=== PATIENT | female | born 1935 | race Caucasian/White ===

== ENCOUNTER 2020-05-05 19:49 | Inpatient (IN) | payer BC ==
[~2020-05-05] VITALS: Ht 165.1 cm; Wt 79.4 kg
[2020-05-05 20:15] VITALS: BP 145/64
--- NOTE | 2020-05-05 21:10 | Diagnostic Imaging Report ---
EXAM: XR Chest, 1 View CLINICAL HISTORY: SOB TECHNIQUE: Frontal view of the chest. COMPARISON: No relevant prior studies available. FINDINGS: The cardiac and mediastinal silhouettes are unremarkable. Minor scattered areas of atelectasis in both lung bases. Negative for pneumothorax or pleural fluid collections.
--- NOTE | 2020-05-05 21:20 | Emergency Room Report ---
History of Present Illness General Chief Complaint: Diarrhea Present Illness HPI Disclaimer: Please note that this report is being documented using [employer] technology. This can lead to erroneous entry secondary to incorrect interpretation by the dictating instrument. HPI: 84-year-old female history of hypertension, hyperlipidemia, dementia presented from [facility] secondary to positive coronavirus testing. Apparently at their facility they cannot take care of patients with COVID-19. T patient is mildly agitated at baseline and on arrival. She does not describe any complaints. Apparently she had 1 episode of diarrhea at her [facility] facility prior to arrival. Allergies: Coded Allergies: No Known Allergies (Unverified , 05/05/20) COVID-19 Screening Contact w/high risk pt: No Experienced COVID-19 symptoms?: Yes COVID-19 Testing performed CHIEF EXECUTIVE: Yes COVID-19 Screening: Positive COVID-19 COVID-19 Testing Source: POS Patient History Reviewed Nursing Documentation: PMH: Agreed; PSxH: Agreed Review of Systems All Other Systems: limited - History limited due to patient's baseline dementia Physical Exam Vital Signs Date Time Temp Pulse Resp B/P (MAP) Pulse Ox O2 Delivery O2 Flow Rate FiO2 05/05/20 19:36 98.2 88 19 98 Room Air Sp02 EP Interpretation: reviewed, normal General Appearance: well appearing, other - Patient mildly agitated Head: normocephalic, atraumatic Eyes: bilateral eye PERRL, bilateral eye EOMI ENT: hearing grossly normal, moist mucus membranes Neck: full range of motion, supple Respiratory: lungs clear, normal breath sounds, no rhonchi, no respiratory distress, no retraction, no wheezing Cardiovascular #1: normal peripheral pulses, regular rate, rhythm, no murmur Gastrointestinal: non tender, soft, non-distended, no guarding Neurologic: alert, oriented x3, no focal defects Skin: normal color, warm/dry Medical Decision Making Diagnostic Impression: Primary Impression: COVID-19 ER Course MDM: Differential diagnosis included COVID-19, pneumonia, dehydration, dementia to name a few Clinical course-patient tested positive for COVID-19 as an outpatient. Unfortunately with a positive test she cannot stay at her [facility] facility. In the ER basic laboratory studies were sent. Chest x-ray did not demonstrate any obvious pneumonia. Patient's vital signs were stable. Patient will require admission the hospital for further observation. Labs - Laboratory Tests Test 05/05/20 20:15 White Blood Count 10.0 K/UL (4.8-10.8) Red Blood Count 4.23 M/UL (4.20-5.40) Hemoglobin 13.9 G/DL (12.0-16.0) Hematocrit 44.0 % (37.0-47.0) Mean Corpuscular Volume 104 FL (80-99) H Mean Corpuscular Hemoglobin 33.0 PG (27.0-31.0) H Mean Corpuscular Hemoglobin Concent 31.7 G/DL (32.0-36.0) L Red Cell Distribution Width 13.3 % (11.6-14.8) Platelet Count 137 K/UL (150-450) L Mean Platelet Volume 9.4 FL (6.5-10.1) Neutrophils (%) (Auto) 58.4 % (45.0-75.0) Lymphocytes (%) (Auto) 31.2 % (20.0-45.0) Monocytes (%) (Auto) 8.2 % (1.0-10.0) Eosinophils (%) (Auto) 1.7 % (0.0-3.0) Basophils (%) (Auto) 0.6 % (0.0-2.0) Sodium Level 139 MMOL/L (136-145) Potassium Level 4.6 MMOL/L (3.5-5.1) Chloride Level 103 MMOL/L (98-107) Carbon Dioxide Level 30 MMOL/L (21-32) Anion Gap 6 mmol/L (5-15) Blood Urea Nitrogen 31 mg/dL (7-18) H Creatinine 1.2 MG/DL (0.55-1.30) Estimated Glomerular Filtration Rate 42.8 mL/min (>60) Glucose Level 107 MG/DL (74-106) H Calcium Level 9.6 MG/DL (8.5-10.1) Total Bilirubin 0.1 MG/DL (0.2-1.0) L Aspartate Amino Transferase (AST) 21 U/L (15-37) Alanine Aminotransferase (ALT) 19 U/L (12-78) Alkaline Phosphatase 44 U/L (46-116) L Total Protein 8.2 G/DL (6.4-8.2) Albumin 3.8 G/DL (3.4-5.0) Globulin 4.4 g/dL Albumin/Globulin Ratio 0.9 (1.0-2.7) L Microbiology Date/Time Source Procedure Growth Status 05/05/20 20:15 Nasopharynx SARS-CoV-2 RdRp Gene Assay - Final Complete On reevaluation: Patient remained in no acute distress but mildly agitated requiring Ativan Plan-admitssion to medical floor. Patient accepted by Dr. Aj EKG Diagnostic Results Rate: normal Rhythm: NSR ST Segments: no acute changes Other Impression Left axis deviation Chest X-Ray Diagnostic Results Chest X-Ray Diagnostic Results : Chest X-Ray Ordered: Yes # of Views/Limited/Complete: 1 View Indication: Shortness of Breath EP Interpretation: Yes Interpretation: no consolidation, no effusion, no pneumothorax Impression: No acute disease Electronically Signed by: Robert Smith MD Last Vital Signs Date Time Temp Pulse Resp B/P (MAP) Pulse Ox O2 Delivery O2 Flow Rate FiO2 05/05/20 19:36 98.2 88 19 98 Room Air Disposition: ADMITTED INPATIENT Condition: Serious Robert Smith M.D. May 05, 2020 21:20
[2020-05-05 21:27] LABS: BASOPHILS % (AUTO) 0.6 % (0.0-2.0); EOSINOPHILS % (AUTO) 1.7 % (0.0-3.0); HEMOGLOBIN 13.9 G/DL (12.0-16.0); LYMPHOCYTES % (AUTO) 31.2 % (20.0-45.0); MEAN CORPUSCULAR VOLUME 104 FL (80-99); MONOCYTES % (AUTO) 8.2 % (1.0-10.0); NEUTROPHILS % (AUTO) 58.4 % (45.0-75.0); PLATELET COUNT 137 K/UL (150-450); RED BLOOD COUNT 4.23 M/UL (4.20-5.40); RED CELL DISTRIBUTION WIDTH 13.3 % (11.6-14.8)
[2020-05-05 21:33] LABS: CALCIUM 9.6 MG/DL (8.5-10.1); CREATININE 1.2 MG/DL (0.55-1.30); POTASSIUM 4.6 MMOL/L (3.5-5.1)
[2020-05-05] MEDS ORDERED: LORazepam Inj 2mg/ml 1ml ONE (21:44)
[2020-05-05 21:45] LABS: ALBUMIN 3.8 G/DL (3.4-5.0); ALBUMIN/GLOBULIN RATIO 0.9 (1.0-2.7); BILIRUBIN,TOTAL 0.1 MG/DL (0.2-1.0)
[2020-05-05] MEDS ORDERED: DEPAKOTE250 MG PO (21:55)
[2020-05-05] MEDS ORDERED: LOSARTAN POTASS25 MG ORAL (21:55)
[2020-05-05] MEDS ORDERED: LISINOPRIL40 MG ORAL (21:55)
[2020-05-05] MEDS ORDERED: LORazepam Inj 2mg/ml 1ml IV ONE (22:00)
[2020-05-05 23:00] VITALS: BP 139/81
[2020-05-05 23:12] LABS: APPEARANCE,URINE CLOUDY; BILIRUBIN, URINE NEGATIVE (NEGATIVE); COLOR,URINE PALE YELLOW; GLUCOSE, URINE (UA) NEGATIVE (NEGATIVE); KETONES,URINE NEGATIVE (NEGATIVE); LEUKOCYTE ESTERASE ,URINE 3+ (NEGATIVE); NITRITE,URINE POSITIVE (NEGATIVE); PH,URINE 5 (4.5-8.0); PROTEIN,URINE 2+ (NEGATIVE); UROBILINOGEN,URINE NORMAL MG/DL (0.0-1.0)
[2020-05-06] VITALS (7 sets, daily range): BP systolic 120–153; BP diastolic 56–81
[2020-05-06 07:43] LABS: BASOPHILS % (AUTO) 0.3 % (0.0-2.0); EOSINOPHILS % (AUTO) 0.8 % (0.0-3.0); HEMATOCRIT 42.7 % (37.0-47.0); HEMOGLOBIN 13.5 G/DL (12.0-16.0); LYMPHOCYTES % (AUTO) 21.8 % (20.0-45.0); MEAN CORPUSCULAR VOLUME 103 FL (80-99); MONOCYTES % (AUTO) 6.7 % (1.0-10.0); NEUTROPHILS % (AUTO) 70.4 % (45.0-75.0); PLATELET COUNT 238 K/UL (150-450); RED BLOOD COUNT 4.16 M/UL (4.20-5.40); RED CELL DISTRIBUTION WIDTH 13.2 % (11.6-14.8); WHITE BLOOD COUNT 10.3 K/UL (4.8-10.8)
[2020-05-06 08:28] LABS: ANION GAP 8 mmol/L (5-15); BLOOD UREA NITROGEN 24 mg/dL (7-18); CALCIUM 9.3 MG/DL (8.5-10.1); CARBON DIOXIDE 29 MMOL/L (21-32); CHLORIDE 104 MMOL/L (98-107); CREATININE 1.1 MG/DL (0.55-1.30); POTASSIUM 4.1 MMOL/L (3.5-5.1); SODIUM 141 MMOL/L (136-145)
[2020-05-06] MEDS ORDERED: Losartan 25mg tab ORAL SCH (09:00)
[2020-05-06] MEDS: Lisinopril 20mg tab ORAL SCH (09:26)
[2020-05-06] MEDS: Depakote 125mg Sprinkles ORAL SCH (09:26)
[2020-05-06] MEDS: Heparin 5000 units/ml inj SUBQ SCH ×2 (09:27→20:17)
--- NOTE | 2020-05-06 10:47 | History and Physical ---
Liseth Miranda HEAD [employer]QU[employer] WAITER/WAITRESS 05/06/20 1047: History of Present Illness General Date patient seen: May 06, 2020 Time patient seen: 08:30 Reason for Hospitalization: COVID 19 infection Present Illness HPI 84 years old female with past medical history of hypertension, hyperlipidemia, dementia, resident of assisted living, presented secondary to positive coronavirus testing. At the facility they were unable to take care of patient with Covid. Upon evaluation patient was not able to describe any complaints. She had one episode of diarrhea at the facility. Upon evaluation she was afebrile pulse oximetry was stable on room air her vital signs were stable. Rapid COVID-19 in the emergency room occult was positive. Chest x-ray revealed minor area of atelectasis in both lung bases no evidence of pneumonia no pleural fluid collection. Laboratory work-up revealed no leukocytosis stable hemoglobin hematocrit count 137 yesterday but this morning 228. Stable electrolytes. BUN 31, creatinine 1.2. Albumin 3.8. D-dimer 2.3. Urinalysis revealed +2 protein plus for blood positive for nitrate leukocyte esterase pyuria and many bacteria. Patient subsequently admitted to medical surgical floor for further management. Allergies: Coded Allergies: No Known Allergies (Unverified , 05/05/20) COVID-19 Screening Contact w/high risk pt: No Experienced COVID-19 symptoms?: Yes Coronavirus symptoms experienc: Diarrhea Medication History Scheduled Divalproex Sodium* (Depakote*), 125 MG PO DAILY, (Reported) Lisinopril* (Lisinopril*), 40 MG ORAL DAILY, (Reported) Losartan Potassium* (Losartan Potassium*), 20 MG ORAL DAILY, (Reported) Patient History Healthcare decision maker Resuscitation status DNR/DNI Advanced Directive on File Review of Systems ROS Narrative unable to provide given dementia Physical Exam General Appearance: no apparent distress, other - awake, confused, slightly agitated Lines, tubes and drains: peripheral HEENT: normocephalic, atraumatic, anicteric, mucous membranes moist Neck: non-tender, supple Respiratory/Chest: chest wall non-tender, lungs clear, no respiratory distress, no accessory muscle use Cardiovascular/Chest: normal rate Abdomen: normal bowel sounds, non tender, soft Genitourinary/Rectal: other - no CVAT Extremities: no calf tenderness, normal capillary refill, no edema Neurologic: alert - confused , other - no gross focal Musculoskeletal: atrophy Last 24 Hour Vital Signs Date Time Temp Pulse Resp B/P (MAP) Pulse Ox O2 Delivery O2 Flow Rate FiO2 05/06/20 09:26 129/61 05/06/20 08:00 98.2 80 19 129/61 (83) 98 05/06/20 04:00 98.2 84 18 136/63 (87) 98 05/06/20 00:48 Room Air 05/06/20 00:05 98.2 88 20 151/81 (104) 98 05/05/20 23:45 98.2 99 17 139/81 99 Room Air 05/05/20 23:00 98.2 99 17 139/81 99 Room Air 05/05/20 22:00 88 19 145/78 98 05/05/20 20:15 98.2 88 19 145/64 98 Room Air 05/05/20 19:36 98.2 88 19 98 Room Air Laboratory Tests Test 05/05/20 20:15 05/05/20 21:30 05/06/20 05:15 White Blood Count 10.0 K/UL (4.8-10.8) 10.3 K/UL (4.8-10.8) Red Blood Count 4.23 M/UL (4.20-5.40) 4.16 M/UL (4.20-5.40) L Hemoglobin 13.9 G/DL (12.0-16.0) 13.5 G/DL (12.0-16.0) Hematocrit 44.0 % (37.0-47.0) 42.7 % (37.0-47.0) Mean Corpuscular Volume 104 FL (80-99) H 103 FL (80-99) H Mean Corpuscular Hemoglobin 33.0 PG (27.0-31.0) H 32.5 PG (27.0-31.0) H Mean Corpuscular Hemoglobin Concent 31.7 G/DL (32.0-36.0) L 31.7 G/DL (32.0-36.0) L Red Cell Distribution Width 13.3 % (11.6-14.8) 13.2 % (11.6-14.8) Platelet Count 137 K/UL (150-450) L 238 K/UL (150-450) # Mean Platelet Volume 9.4 FL (6.5-10.1) 7.2 FL (6.5-10.1) Neutrophils (%) (Auto) 58.4 % (45.0-75.0) 70.4 % (45.0-75.0) Lymphocytes (%) (Auto) 31.2 % (20.0-45.0) 21.8 % (20.0-45.0) Monocytes (%) (Auto) 8.2 % (1.0-10.0) 6.7 % (1.0-10.0) Eosinophils (%) (Auto) 1.7 % (0.0-3.0) 0.8 % (0.0-3.0) Basophils (%) (Auto) 0.6 % (0.0-2.0) 0.3 % (0.0-2.0) Sodium Level 139 MMOL/L (136-145) 141 MMOL/L (136-145) Potassium Level 4.6 MMOL/L (3.5-5.1) 4.1 MMOL/L (3.5-5.1) Chloride Level 103 MMOL/L (98-107) 104 MMOL/L (98-107) Carbon Dioxide Level 30 MMOL/L (21-32) 29 MMOL/L (21-32) Anion Gap 6 mmol/L (5-15) 8 mmol/L (5-15) Blood Urea Nitrogen 31 mg/dL (7-18) H 24 mg/dL (7-18) H Creatinine 1.2 MG/DL (0.55-1.30) 1.1 MG/DL (0.55-1.30) Estimat Glomerular Filtration Rate 42.8 mL/min (>60) 47.3 mL/min (>60) Glucose Level 107 MG/DL (74-106) H 98 MG/DL (74-106) Calcium Level 9.6 MG/DL (8.5-10.1) 9.3 MG/DL (8.5-10.1) Total Bilirubin 0.1 MG/DL (0.2-1.0) L Aspartate Amino Transf (AST/SGOT) 21 U/L (15-37) Alanine Aminotransferase (ALT/SGPT) 19 U/L (12-78) Alkaline Phosphatase 44 U/L (46-116) L Total Protein 8.2 G/DL (6.4-8.2) Albumin 3.8 G/DL (3.4-5.0) Globulin 4.4 g/dL Albumin/Globulin Ratio 0.9 (1.0-2.7) L Urine Color Pale yellow Urine Appearance Cloudy Urine pH 5 (4.5-8.0) Urine Specific [place] 1.020 (1.005-1.035) Urine Protein 2+ (NEGATIVE) H Urine Glucose (UA) Negative (NEGATIVE) Urine Ketones Negative (NEGATIVE) Urine Blood 4+ (NEGATIVE) H Urine Nitrite Positive (NEGATIVE) H Urine Bilirubin Negative (NEGATIVE) Urine Urobilinogen Normal MG/DL (0.0-1.0) Urine Leukocyte Esterase 3+ (NEGATIVE) H Urine RBC 0-2 /HPF (0 - 2) Urine WBC Tntc /HPF (0 - 2) H Urine Squamous Epithelial Cells Occasional /LPF Urine Bacteria Many /HPF (NONE) H Erythrocyte Sedimentation Rate 26 MM/HR (0-30) D-Dimer 2.30 mg/L FEU (0.00-0.49) H C-Reactive Protein, Quantitative < 0.4 mg/dL (0.00-0.90) Interleukin 6 (IL-6) Pending Microbiology Date/Time Source Procedure Growth Status 05/05/20 20:15 Nasopharynx SARS-CoV-2 RdRp Gene Assay - Final Complete Height (Feet): 5 Height (Inches): 5.00 Weight (Pounds): 175 Medications Current Medications Medications (Trade) Dose Ordered Sig/Trina Route PRN Reason Start Time Stop Time Status Last Admin Dose Admin Acetaminophen (Tylenol) 650 mg Q4H PRN ORAL Temp >100.5 05/06/20 00:15 06/05/20 00:14 Diphenhydramine HCl (Benadryl) 25 mg Q6H PRN ORAL Itching 05/06/20 00:15 06/05/20 00:14 Divalproex Sodium (Depakote Sprinkles) 125 mg DAILY ORAL 05/06/20 09:00 06/05/20 08:59 05/06/20 09:26 Heparin Sodium (Porcine) (Heparin 5000 units/ml) 5,000 units EVERY 12 HOURS SUBQ 05/06/20 09:00 06/20/20 08:59 05/06/20 09:27 Lisinopril (PriniviL) 40 mg DAILY ORAL 05/06/20 09:00 06/05/20 08:59 05/06/20 09:26 Ondansetron HCl (Zofran) 4 mg Q6H PRN IVP Nausea & Vomiting 05/06/20 00:15 06/05/20 00:14 Assessment/Plan Assessment/Plan: ASSESSMENT COVID 19 infection Probable UTI Hypertension Hyperlipidemia Dementia Mild dehydration Thrombocytopenia - already resolved PLAN OF CARE MS floor isolation closely monitor resp status, pulse oximetry remains stable on RA; CXR no acute CP pathology will hold off on steroids and abx for PNA, Remdesivivr not indicated in this case CRP NGT, D dimer 2.3, check LDH and ferritin IL6 pending follow up with CXR Albuterol via MDI prn DVT prophylaxis Venous Duplex BLE UA c/w with probable UTI start empiric Ceftriaxone fup with UCX start gentle IV hydration monitor volumes, renal parameters, lytes BP management with ANJALI DNR/DNI status case discussed and evaluated by supervising physician Pradeep Ramos MD 05/06/20 1554: History of Present Illness General Reason for Hospitalization: COVID 19 infection Present Illness Allergies: Coded Allergies: No Known Allergies (Unverified , 05/05/20) Medication History Scheduled Divalproex Sodium* (Depakote*), 125 MG PO DAILY, (Reported) Lisinopril* (Lisinopril*), 40 MG ORAL DAILY, (Reported) Losartan Potassium* (Losartan Potassium*), 20 MG ORAL DAILY, (Reported) Liseth Miranda NP May 06, 2020 10:47 Pradeep Ramos MD May 06, 2020 15:54
[2020-05-06] MEDS: cefTRIAXone 1 GM in D5W 55 ML IVPB SCH (11:23)
[2020-05-06] MEDS: D5 1/2NS 1,000 ML IV SCH (11:24)
[2020-05-06] MEDS ORDERED: Albuterol 90mcg Inhaler 8gm INH PRN (12:00)
--- NOTE | 2020-05-06 14:32 | Infectious Diseases Prog Note ---
Assessment/Plan Assessment/Plan Full consult dictated: A) 1) complicated UTI 2) covid-19 infection 3) allergies - nkda P) 1) ceftriaxone 2) covid-19 isolation - no indication for treatment 3) f/u on urine culture 4) thank you Subjective Allergies: Coded Allergies: No Known Allergies (Unverified , 05/05/20) Objective Last 24 Hour Vital Signs Date Time Temp Pulse Resp B/P (MAP) Pulse Ox O2 Delivery O2 Flow Rate FiO2 05/06/20 12:00 98.7 73 20 153/75 (101) 95 05/06/20 09:26 129/61 05/06/20 09:00 Room Air 05/06/20 08:00 98.2 80 19 129/61 (83) 98 05/06/20 04:00 98.2 84 18 136/63 (87) 98 05/06/20 00:48 Room Air 05/06/20 00:05 98.2 88 20 151/81 (104) 98 05/05/20 23:45 98.2 99 17 139/81 99 Room Air 05/05/20 23:00 98.2 99 17 139/81 99 Room Air 05/05/20 22:00 88 19 145/78 98 05/05/20 20:15 98.2 88 19 145/64 98 Room Air 05/05/20 19:36 98.2 88 19 98 Room Air Height (Feet): 5 Height (Inches): 5.00 Weight (Pounds): 175 Microbiology Date/Time Source Procedure Growth Status 05/05/20 20:15 Nasopharynx SARS-CoV-2 RdRp Gene Assay - Final Complete Laboratory Tests Test 05/05/20 20:15 05/05/20 21:30 05/06/20 05:15 White Blood Count 10.0 K/UL (4.8-10.8) 10.3 K/UL (4.8-10.8) Red Blood Count 4.23 M/UL (4.20-5.40) 4.16 M/UL (4.20-5.40) L Hemoglobin 13.9 G/DL (12.0-16.0) 13.5 G/DL (12.0-16.0) Hematocrit 44.0 % (37.0-47.0) 42.7 % (37.0-47.0) Mean Corpuscular Volume 104 FL (80-99) H 103 FL (80-99) H Mean Corpuscular Hemoglobin 33.0 PG (27.0-31.0) H 32.5 PG (27.0-31.0) H Mean Corpuscular Hemoglobin Concent 31.7 G/DL (32.0-36.0) L 31.7 G/DL (32.0-36.0) L Red Cell Distribution Width 13.3 % (11.6-14.8) 13.2 % (11.6-14.8) Platelet Count 137 K/UL (150-450) L 238 K/UL (150-450) # Mean Platelet Volume 9.4 FL (6.5-10.1) 7.2 FL (6.5-10.1) Neutrophils (%) (Auto) 58.4 % (45.0-75.0) 70.4 % (45.0-75.0) Lymphocytes (%) (Auto) 31.2 % (20.0-45.0) 21.8 % (20.0-45.0) Monocytes (%) (Auto) 8.2 % (1.0-10.0) 6.7 % (1.0-10.0) Eosinophils (%) (Auto) 1.7 % (0.0-3.0) 0.8 % (0.0-3.0) Basophils (%) (Auto) 0.6 % (0.0-2.0) 0.3 % (0.0-2.0) Sodium Level 139 MMOL/L (136-145) 141 MMOL/L (136-145) Potassium Level 4.6 MMOL/L (3.5-5.1) 4.1 MMOL/L (3.5-5.1) Chloride Level 103 MMOL/L (98-107) 104 MMOL/L (98-107) Carbon Dioxide Level 30 MMOL/L (21-32) 29 MMOL/L (21-32) Anion Gap 6 mmol/L (5-15) 8 mmol/L (5-15) Blood Urea Nitrogen 31 mg/dL (7-18) H 24 mg/dL (7-18) H Creatinine 1.2 MG/DL (0.55-1.30) 1.1 MG/DL (0.55-1.30) Estimat Glomerular Filtration Rate 42.8 mL/min (>60) 47.3 mL/min (>60) Glucose Level 107 MG/DL (74-106) H 98 MG/DL (74-106) Calcium Level 9.6 MG/DL (8.5-10.1) 9.3 MG/DL (8.5-10.1) Total Bilirubin 0.1 MG/DL (0.2-1.0) L Aspartate Amino Transf (AST/SGOT) 21 U/L (15-37) Alanine Aminotransferase (ALT/SGPT) 19 U/L (12-78) Alkaline Phosphatase 44 U/L (46-116) L Total Protein 8.2 G/DL (6.4-8.2) Albumin 3.8 G/DL (3.4-5.0) Globulin 4.4 g/dL Albumin/Globulin Ratio 0.9 (1.0-2.7) L Urine Color Pale yellow Urine Appearance Cloudy Urine pH 5 (4.5-8.0) Urine Specific [place] 1.020 (1.005-1.035) Urine Protein 2+ (NEGATIVE) H Urine Glucose (UA) Negative (NEGATIVE) Urine Ketones Negative (NEGATIVE) Urine Blood 4+ (NEGATIVE) H Urine Nitrite Positive (NEGATIVE) H Urine Bilirubin Negative (NEGATIVE) Urine Urobilinogen Normal MG/DL (0.0-1.0) Urine Leukocyte Esterase 3+ (NEGATIVE) H Urine RBC 0-2 /HPF (0 - 2) Urine WBC Tntc /HPF (0 - 2) H Urine Squamous Epithelial Cells Occasional /LPF Urine Bacteria Many /HPF (NONE) H Erythrocyte Sedimentation Rate 26 MM/HR (0-30) D-Dimer 2.30 mg/L FEU (0.00-0.49) H C-Reactive Protein, Quantitative < 0.4 mg/dL (0.00-0.90) Interleukin 6 (IL-6) Pending Current Medications Medications (Trade) Dose Ordered Sig/Trina Route PRN Reason Start Time Stop Time Status Last Admin Dose Admin Acetaminophen (Tylenol) 650 mg Q4H PRN ORAL Temp >100.5 05/06/20 00:15 06/05/20 00:14 Albuterol Sulfate (Proventil MDI) 2 puff Q4H PRN INH Shortness of Breath 05/06/20 12:00 08/04/20 11:59 Ceftriaxone Sodium 1 gm/ Dextrose 55 ml @ 110 mls/hr Q24H IVPB 05/06/20 10:45 05/13/20 10:44 05/06/20 11:23 Dextrose/Sodium Chloride 1,000 ml @ 50 mls/hr Q20H IV 05/06/20 10:45 06/05/20 10:44 05/06/20 11:24 Diphenhydramine HCl (Benadryl) 25 mg Q6H PRN ORAL Itching 05/06/20 00:15 06/05/20 00:14 Divalproex Sodium (Depakote Sprinkles) 125 mg DAILY ORAL 05/06/20 09:00 06/05/20 08:59 05/06/20 09:26 Heparin Sodium (Porcine) (Heparin 5000 units/ml) 5,000 units EVERY 12 HOURS SUBQ 05/06/20 09:00 06/20/20 08:59 05/06/20 09:27 Lisinopril (PriniviL) 40 mg DAILY ORAL 05/06/20 09:00 06/05/20 08:59 05/06/20 09:26 Ondansetron HCl (Zofran) 4 mg Q6H PRN IVP Nausea & Vomiting 05/06/20 00:15 06/05/20 00:14 Wale Schofield MD May 06, 2020 14:32
--- NOTE | 2020-05-06 19:26 | Consultation ---
History of Present Illness General Date patient seen: May 06, 2020 Reason for Hospitalization: Diarrhea Present Illness H[facility] 84[facility] currently admitted for care and management identified to have UTI on treatment with antibiotics Covid positive on MedSurg floor. On admission identified to have atypical lesion/skin around the sacral region. Surgery called to evaluate assist with care. Patient seen, patient evaluated chart reviewed. Per report patient has been having diarrhea recently. History of dementia alert but unable to cooperate with exam in detail Allergies: Coded Allergies: No Known Allergies (Unverified , 05/05/20) COVID-19 Screening Contact w/high risk pt: No Experienced COVID-19 symptoms?: Yes Coronavirus symptoms experienc: Diarrhea Medication History Scheduled Divalproex Sodium* (Depakote*), 125 MG PO DAILY, (Reported) Lisinopril* (Lisinopril*), 40 MG ORAL DAILY, (Reported) Losartan Potassium* (Losartan Potassium*), 20 MG ORAL DAILY, (Reported) Patient History Limited by: medical condition History Provided By: Medical Record, PMD Healthcare decision maker Resuscitation status Advanced Directive on File Past Medical/Surgical History Past Medical/Surgical History: (1) Incontinence associated dermatitis (2) COVID-19 Review of Systems Review of Symptoms General ROS: no weight loss or fever Psychological ROS: no depression or mood changes, no memory loss Ophthalmic ROS: no visual changes or eye irritation ENT ROS: no nasal congestion, hearing loss, dizziness Allergy and Immunology ROS: no allergic symptoms or urticaria Hematological and Lymphatic ROS: no swollen glands, unusual bleeding or bruising Endocrine ROS: no polyuria, polydipsia, weight changes, temperature intolerance Respiratory ROS: no cough, shortness of breath, or wheezing Cardiovascular ROS: no chest pain or dyspnea on exertion Gastrointestinal ROS: denies abdominal pain, bright red blood in stool. Musculoskeletal ROS: no myalgias or arthralgias Neurological ROS: no TIA or stroke symptoms Dermatological ROS: no new or changing skin lesions, rashes or pruritis limited Physical Exam Physical Exam General Appearance: well appearing, other - Patient mildly agitated Head: normocephalic, atraumatic Eyes: bilateral eye PERRL, bilateral eye EOMI ENT: hearing grossly normal, moist mucus membranes Neck: full range of motion, supple Respiratory: lungs clear, normal breath sounds, no rhonchi, no respiratory distress, no retraction, no wheezing Cardiovascular #1: normal peripheral pulses, regular rate, rhythm, no murmur Gastrointestinal: non tender, soft, non-distended, no guarding Neurologic: alert, oriented x3, no focal defects Skin: normal color, warm/dry. IAD sacral Last 24 Hour Vital Signs Date Time Temp Pulse Resp B/P (MAP) Pulse Ox O2 Delivery O2 Flow Rate FiO2 05/06/20 16:00 97.1 77 18 120/77 (91) 97 05/06/20 12:00 98.7 73 20 153/75 (101) 95 05/06/20 09:26 129/61 05/06/20 09:00 Room Air 05/06/20 08:00 98.2 80 19 129/61 (83) 98 05/06/20 04:00 98.2 84 18 136/63 (87) 98 05/06/20 00:48 Room Air 05/06/20 00:05 98.2 88 20 151/81 (104) 98 05/05/20 23:45 98.2 99 17 139/81 99 Room Air 05/05/20 23:00 98.2 99 17 139/81 99 Room Air 05/05/20 22:00 88 19 145/78 98 05/05/20 20:15 98.2 88 19 145/64 98 Room Air 05/05/20 19:36 98.2 88 19 98 Room Air Laboratory Tests Test 05/05/20 20:15 05/05/20 21:30 05/06/20 05:15 White Blood Count 10.0 K/UL (4.8-10.8) 10.3 K/UL (4.8-10.8) Red Blood Count 4.23 M/UL (4.20-5.40) 4.16 M/UL (4.20-5.40) L Hemoglobin 13.9 G/DL (12.0-16.0) 13.5 G/DL (12.0-16.0) Hematocrit 44.0 % (37.0-47.0) 42.7 % (37.0-47.0) Mean Corpuscular Volume 104 FL (80-99) H 103 FL (80-99) H Mean Corpuscular Hemoglobin 33.0 PG (27.0-31.0) H 32.5 PG (27.0-31.0) H Mean Corpuscular Hemoglobin Concent 31.7 G/DL (32.0-36.0) L 31.7 G/DL (32.0-36.0) L Red Cell Distribution Width 13.3 % (11.6-14.8) 13.2 % (11.6-14.8) Platelet Count 137 K/UL (150-450) L 238 K/UL (150-450) # Mean Platelet Volume 9.4 FL (6.5-10.1) 7.2 FL (6.5-10.1) Neutrophils (%) (Auto) 58.4 % (45.0-75.0) 70.4 % (45.0-75.0) Lymphocytes (%) (Auto) 31.2 % (20.0-45.0) 21.8 % (20.0-45.0) Monocytes (%) (Auto) 8.2 % (1.0-10.0) 6.7 % (1.0-10.0) Eosinophils (%) (Auto) 1.7 % (0.0-3.0) 0.8 % (0.0-3.0) Basophils (%) (Auto) 0.6 % (0.0-2.0) 0.3 % (0.0-2.0) Sodium Level 139 MMOL/L (136-145) 141 MMOL/L (136-145) Potassium Level 4.6 MMOL/L (3.5-5.1) 4.1 MMOL/L (3.5-5.1) Chloride Level 103 MMOL/L (98-107) 104 MMOL/L (98-107) Carbon Dioxide Level 30 MMOL/L (21-32) 29 MMOL/L (21-32) Anion Gap 6 mmol/L (5-15) 8 mmol/L (5-15) Blood Urea Nitrogen 31 mg/dL (7-18) H 24 mg/dL (7-18) H Creatinine 1.2 MG/DL (0.55-1.30) 1.1 MG/DL (0.55-1.30) Estimat Glomerular Filtration Rate 42.8 mL/min (>60) 47.3 mL/min (>60) Glucose Level 107 MG/DL (74-106) H 98 MG/DL (74-106) Calcium Level 9.6 MG/DL (8.5-10.1) 9.3 MG/DL (8.5-10.1) Total Bilirubin 0.1 MG/DL (0.2-1.0) L Aspartate Amino Transf (AST/SGOT) 21 U/L (15-37) Alanine Aminotransferase (ALT/SGPT) 19 U/L (12-78) Alkaline Phosphatase 44 U/L (46-116) L Total Protein 8.2 G/DL (6.4-8.2) Albumin 3.8 G/DL (3.4-5.0) Globulin 4.4 g/dL Albumin/Globulin Ratio 0.9 (1.0-2.7) L Urine Color Pale yellow Urine Appearance Cloudy Urine pH 5 (4.5-8.0) Urine Specific [place] 1.020 (1.005-1.035) Urine Protein 2+ (NEGATIVE) H Urine Glucose (UA) Negative (NEGATIVE) Urine Ketones Negative (NEGATIVE) Urine Blood 4+ (NEGATIVE) H Urine Nitrite Positive (NEGATIVE) H Urine Bilirubin Negative (NEGATIVE) Urine Urobilinogen Normal MG/DL (0.0-1.0) Urine Leukocyte Esterase 3+ (NEGATIVE) H Urine RBC 0-2 /HPF (0 - 2) Urine WBC Tntc /HPF (0 - 2) H Urine Squamous Epithelial Cells Occasional /LPF Urine Bacteria Many /HPF (NONE) H Erythrocyte Sedimentation Rate 26 MM/HR (0-30) D-Dimer 2.30 mg/L FEU (0.00-0.49) H C-Reactive Protein, Quantitative < 0.4 mg/dL (0.00-0.90) Interleukin 6 (IL-6) Pending Microbiology Date/Time Source Procedure Growth Status 05/05/20 20:15 Nasopharynx SARS-CoV-2 RdRp Gene Assay - Final Complete Height (Feet): 5 Height (Inches): 5.00 Weight (Pounds): 175 Medications Current Medications Medications (Trade) Dose Ordered Sig/Trina Route PRN Reason Start Time Stop Time Status Last Admin Dose Admin Acetaminophen (Tylenol) 650 mg Q4H PRN ORAL Temp >100.5 05/06/20 00:15 06/05/20 00:14 Albuterol Sulfate (Proventil MDI) 2 puff Q4H PRN INH Shortness of Breath 05/06/20 12:00 08/04/20 11:59 Ceftriaxone Sodium 1 gm/ Dextrose 55 ml @ 110 mls/hr Q24H IVPB 05/06/20 10:45 05/13/20 10:44 05/06/20 11:23 Dextrose/Sodium Chloride 1,000 ml @ 50 mls/hr Q20H IV 05/06/20 10:45 06/05/20 10:44 05/06/20 11:24 Diphenhydramine HCl (Benadryl) 25 mg Q6H PRN ORAL Itching 05/06/20 00:15 06/05/20 00:14 Divalproex Sodium (Depakote Sprinkles) 125 mg DAILY ORAL 05/06/20 09:00 06/05/20 08:59 05/06/20 09:26 Heparin Sodium (Porcine) (Heparin 5000 units/ml) 5,000 units EVERY 12 HOURS SUBQ 05/06/20 09:00 06/20/20 08:59 05/06/20 09:27 Lisinopril (PriniviL) 40 mg DAILY ORAL 05/06/20 09:00 06/05/20 08:59 05/06/20 09:26 Ondansetron HCl (Zofran) 4 mg Q6H PRN IVP Nausea & Vomiting 05/06/20 00:15 06/05/20 00:14 Assessment/Plan Problem List: (1) Incontinence associated dermatitis Assessment & Plan: Patient identified admission to have incontinence associated and tightness around the sacral region. There is skin breakdown in the sacral cleft as well as the bilateral buttock and the sacral periwound with mild maceration of the epidermis but no open lesions. Patient is recently having diarrhea and at high risk for further breakdown. BMI of 29 albumin of 3.8 as the patient does have fairly good nutritional status at this time. To ensure that patient does not have further breakdown or opening of the skin will monitor for incontinence/diarrhea and treat accordingly. In the meantime continue with nutritional optimization as well as turning patient every 2 hours offloading pressure with pillows. Wash wounds daily with normal saline apply OPTi foam dressing to the sacral area okay to change every 3 days with skin protectant unless there is incontinence at which time change accordingly. Thank you will follow with recommendations ICD Codes: L25.8 - Unspecified contact dermatitis due to other agents; R32 - Unspecified urinary incontinence SNOMED: [id number] (2) COVID-19 Assessment & Plan: COVID + ID input noted appreciated The cardiac and mediastinal silhouettes are unremarkable. Minor scattered areas of atelectasis in both lung bases. Negative for pneumothorax or pleural fluid collections. ICD Codes: U07.1 - COVID-19 SNOMED: [id number] Jeramy Rhodes May 06, 2020 19:26
--- NOTE | 2020-05-06 20:14 | Consultation ---
DATE OF CONSULTATION: 05/06/2020 INFECTIOUS DISEASE CONSULTATION CONSULTING PHYSICIAN: Wale Schofield MD ATTENDING PHYSICIAN: Pradeep Ramos MD REFERRING PHYSICIAN: Pradeep Ramos MD REASON FOR CONSULTATION: COVID-19 infection, UTI. CHIEF COMPLAINT: Patient's chief complaint coming to the hospital is COVID-19 infection, UTI, and looks like weakness. HISTORY OF PRESENT ILLNESS: This is an 84-year-old female who comes in to [facility]. Patient has a history of multiple medical problems. She has weakness and diarrhea. She has a complicated UTI with weakness. She also is positive for COVID-19 infection. COVID-19 test was positive at outside facility and also here at [facility] with rapid COVID testing being positive. Infectious Disease requested for antibiotic management in this patient with urinary tract infection, complicated UTI, and COVID-19 infection management. Patient currently is in COVID isolation. REVIEW OF SYSTEMS: CONSTITUTIONAL: Patient is responsive. She has generalized fatigue, weakness, but no focal weakness. She has no fever or chills. HEAD AND NECK: No head pain or neck pain. CARDIAC: No chest pain. GASTROINTESTINAL: She had diarrhea. Currently no diarrhea. No nausea, vomiting, abdominal pain. GENITOURINARY: No Christianson. She has some dysuria, frequency. PULMONARY: No cough or congestion. Saturations are stable. SKIN: No rash. EXTREMITIES: No pain. NEUROLOGIC: No seizures. No CVA tenderness. PAST MEDICAL HISTORY: Patient has a past medical history of hypertension, hyperlipidemia, dementia. She has a history of dehydration, thrombocytopenia. ALLERGIES: No known drug allergies. No antibiotic allergies. SOCIAL HISTORY: Negative for smoking, alcohol, or drug abuse. FAMILY HISTORY: Noncontributory. Negative for tuberculosis or cancer. MEDICATIONS: Upon reviewing the MAR, she is on following medications. She is on albuterol, Rocephin, heparin, lisinopril, abx , Zofran, diphenhydramine, acetaminophen, lorazepam. Outside medications noted and reconciliated. PHYSICAL EXAMINATION: VITAL SIGNS: Temperature 98.7, pulse rate 73, respiratory rate 20, blood pressure 153/75, saturation 95% on room air. GENERAL: Alert, responsive. No acute distress. HEAD AND NECK: Oral exam, no thrush. Eye exam, no icterus. Normocephalic. Neck is supple. No JVD. HEART: Regular. No gallop or murmur. No friction rub. ABDOMEN: Soft. Positive bowel sounds. Nontender. LUNGS: Clear bilaterally. No rhonchi or rales. SKIN: No rash. MUSCULOSKELETAL: No effusion. No contractures. Legs are without cellulitis. PERIPHERAL VASCULAR: No cyanosis or gangrene. GENITOURINARY: No Christianson. No CVA tenderness. LINE SITES: Without phlebitis. NEUROLOGIC: Alert, responsive. She is in COVID isolation. LABORATORY DATA: UA had positive nitrite, 3+ leukocyte esterase, too many to count white blood cells, many bacteria. Creatinine is 1.1. LFTs noted. White count 10.3, hgb-13.5_. Urine culture is pending. SARS COVID testing is positive by molecular testing. IMAGING STUDIES: Chest x-ray showed only atelectasis. There is no infiltrate. ASSESSMENT AND PLAN: 1. Complicated UTI with diarrhea and generalized weakness. Patient is on Rocephin currently. I would continue Rocephin for gram-negative coverage. Continue Rocephin for complicated UTI. Check urine culture. 2. COVID-19 infection. Continue isolation. There is no indication for remdesivir or dexamethasone at this time. Saturation is 95% on room air without any respiratory symptoms. 3. Patient has history of hypertension. 4. Dementia. 5. Blood pressure treatment per primary care team. 6. Dyslipidemia. 7. Thrombocytopenia. 8. Dehydration. 9. IV fluids. 10. Continue treatment per primary consultants. 11. No known drug allergies. 12. Social history is negative. 13. Family history is noncontributory. 14. MAR is noted. 15. Case was discussed with RN. Wale Schofield M.D. DR: BELL JOB#: [id number] CC: GRIS
[2020-05-07 04:07] VITALS: BP 133/65
[2020-05-07] MEDS: D5 1/2NS 1,000 ML IV SCH (06:45)
[2020-05-07 08:00] VITALS: BP 119/62
[2020-05-07] MEDS: Heparin 5000 units/ml inj SUBQ SCH ×3 (09:00→20:11)
[2020-05-07] MEDS: Lisinopril 20mg tab ORAL SCH (09:00)
[2020-05-07] MEDS: Depakote 125mg Sprinkles ORAL SCH (09:32)
[2020-05-07] MEDS: cefTRIAXone 1 GM in D5W 55 ML IVPB SCH (10:17)
--- NOTE | 2020-05-07 11:19 | Pulmonology Progress Note ---
Subjective Allergies: Coded Allergies: No Known Allergies (Unverified , 05/05/20) Subjective remains in isolation pulse ox stable on RA declined blood draw today , not eating food , took all meds Objective Last 24 Hour Vital Signs Date Time Temp Pulse Resp B/P (MAP) Pulse Ox O2 Delivery O2 Flow Rate FiO2 05/07/20 09:00 119/62 05/07/20 08:00 97.8 71 19 119/62 (81) 96 05/07/20 04:07 97.9 68 17 133/65 (87) 96 05/06/20 23:44 97.5 76 16 130/60 (83) 97 05/06/20 20:57 Room Air 05/06/20 20:00 97.4 72 17 136/56 (82) 97 05/06/20 16:00 97.1 77 18 120/77 (91) 97 05/06/20 12:00 98.7 73 20 153/75 (101) 95 Intake and Output 05/06/20 05/07/20 19:00 07:00 Intake Total 50 ml 760 ml Balance 50 ml 760 ml Intake Oral 360 ml IV Total 50 ml 400 ml # Voids 3 2 Objective General Appearance: no apparent distress, awake, confused, Lines, tubes and drains: peripheral HEENT: normocephalic, atraumatic, anicteric, mucous membranes moist Neck: non-tender, supple Respiratory/Chest: chest wall non-tender, lungs clear, no respiratory distress, no accessory muscle use Cardiovascular/Chest: normal rate Abdomen: normal bowel sounds, non tender, soft Genitourinary/Rectal: no CVAT Extremities: no calf tenderness, normal capillary refill, no edema Neurologic: alert but confused , no gross focal Musculoskeletal: atrophy Microbiology Date/Time Source Procedure Growth Status 05/05/20 20:15 Nasopharynx SARS-CoV-2 RdRp Gene Assay - Final Complete Current Medications Medications (Trade) Dose Ordered Sig/Trina Route PRN Reason Start Time Stop Time Status Last Admin Dose Admin Acetaminophen (Tylenol) 650 mg Q4H PRN ORAL Temp >100.5 05/06/20 00:15 06/05/20 00:14 Albuterol Sulfate (Proventil MDI) 2 puff Q4H PRN INH Shortness of Breath 05/06/20 12:00 08/04/20 11:59 Ceftriaxone Sodium 1 gm/ Dextrose 55 ml @ 110 mls/hr Q24H IVPB 05/06/20 10:45 05/13/20 10:44 05/06/20 11:23 Dextrose/Sodium Chloride 1,000 ml @ 50 mls/hr Q20H IV 05/06/20 10:45 06/05/20 10:44 05/06/20 11:24 Diphenhydramine HCl (Benadryl) 25 mg Q6H PRN ORAL Itching 05/06/20 00:15 06/05/20 00:14 Divalproex Sodium (Depakote Sprinkles) 125 mg DAILY ORAL 05/06/20 09:00 06/05/20 08:59 05/07/20 09:32 Heparin Sodium (Porcine) (Heparin 5000 units/ml) 5,000 units EVERY 12 HOURS SUBQ 05/06/20 09:00 06/20/20 08:59 05/06/20 20:17 Lisinopril (PriniviL) 40 mg DAILY ORAL 05/06/20 09:00 06/05/20 08:59 05/06/20 09:26 Ondansetron HCl (Zofran) 4 mg Q6H PRN IVP Nausea & Vomiting 05/06/20 00:15 06/05/20 00:14 Assessment/Plan Assessment/Plan ASSESSMENT COVID 19 infection Complicated UTI with diarrhea and generalized weakness Hypertension Hyperlipidemia Dementia Mild dehydration Thrombocytopenia - already resolved PLAN OF CARE MS floor isolation closely monitor resp status, pulse oximetry remains stable on RA; CXR no acute CP pathology hold off on steroids and abx for PNA, Remdesivivr not indicated in this case ID follows CRP NGT, D dimer 2.3, check LDH and ferritin in am -declined labs , will try to repeat in am IL6 pending follow up with CXR in few days Albuterol via MDI prn DVT prophylaxis Venous Duplex BLE UA c/w with probable UTI started on empiric Ceftriaxone fup with UCX gentle IV hydration monitor volumes, renal parameters, lytes BP management with ANJALI BSSE aspiration precautions DNR/DNI status case discussed and evaluated by supervising physician Liseth Miranda NP May 07, 2020 11:19
[2020-05-07] MEDS ORDERED: Varibar Honey 250ml MC PRN (11:45)
[2020-05-07] MEDS ORDERED: Varibar Nectar 240ml MC PRN (11:45)
[2020-05-07] MEDS ORDERED: Varibar Thin Liquid powder 148gm MC PRN (11:45)
[2020-05-07] MEDS ORDERED: Varibar Pudding 230ml MC PRN (11:45)
[2020-05-07 12:00] VITALS: BP 121/60
[2020-05-07] MEDS ORDERED: QUETIAPINE FUMA25 MG ORAL (12:04)
[2020-05-07] MEDS ORDERED: DIVALPROEX SOD125 MG PO (12:04)
[2020-05-07] MEDS ORDERED: LOVASTATIN20 MG ORAL (12:04)
--- NOTE | 2020-05-07 13:09 | Infectious Diseases Prog Note ---
Assessment/Plan Assessment/Plan A) 1) complicated UTI 2) covid-19 infection 3) allergies - nkda P) 1) ceftriaxone - changed to ceftin, patient pulled out iv 2) covid-19 isolation - no indication for treatment 3) f/u on urine culture 4) will f/u Subjective Constitutional: Denies: fever HEENT: Denies: congestion Respiratory: Denies: shortness of breath Cardiovascular: Denies: chest pain Gastrointestinal/Abdominal: Denies: nausea, vomiting Neurologic: Denies: headache Psychiatric: Denies: depression Skin: Denies: rash Allergies: Coded Allergies: No Known Allergies (Unverified , 05/05/20) Objective Last 24 Hour Vital Signs Date Time Temp Pulse Resp B/P (MAP) Pulse Ox O2 Delivery O2 Flow Rate FiO2 05/07/20 12:00 98.6 79 18 121/60 (80) 97 05/07/20 09:00 Room Air 05/07/20 09:00 119/62 05/07/20 08:00 97.8 71 19 119/62 (81) 96 05/07/20 04:07 97.9 68 17 133/65 (87) 96 05/06/20 23:44 97.5 76 16 130/60 (83) 97 05/06/20 20:57 Room Air 05/06/20 20:00 97.4 72 17 136/56 (82) 97 05/06/20 16:00 97.1 77 18 120/77 (91) 97 Height (Feet): 5 Height (Inches): 5.00 Weight (Pounds): 175 General Appearance: no acute distress HEENT: normocephalic, atraumatic, anicteric, mucous membranes moist Respiratory/Chest: lungs clear, normal breath sounds, no respiratory distress Cardiovascular: normal rate, regular rhythm Abdomen: normal bowel sounds, soft, non tender Microbiology Date/Time Source Procedure Growth Status 05/05/20 20:15 Nasopharynx SARS-CoV-2 RdRp Gene Assay - Final Complete Current Medications Medications (Trade) Dose Ordered Sig/Trina Route PRN Reason Start Time Stop Time Status Last Admin Dose Admin Acetaminophen (Tylenol) 650 mg Q4H PRN ORAL Temp >100.5 05/06/20 00:15 06/05/20 00:14 Albuterol Sulfate (Proventil MDI) 2 puff Q4H PRN INH Shortness of Breath 05/06/20 12:00 08/04/20 11:59 Barium Sulfate (Varibar Honey) 250 ml NOW PRN RAD 05/07/20 11:45 05/10/20 11:31 Barium Sulfate (Varibar [place]) 240 ml NOW PRN MC RAD 05/07/20 11:45 05/10/20 11:31 Barium Sulfate (Varibar Pudding) 230 ml NOW PRN RAD 05/07/20 11:45 05/10/20 11:31 Barium Sulfate (Varibar Thin Liquid powder) 148 gm NOW PRN RAD 05/07/20 11:45 05/10/20 11:31 Ceftriaxone Sodium 1 gm/ Dextrose 55 ml @ 110 mls/hr Q24H IVPB 05/06/20 10:45 05/13/20 10:44 05/06/20 11:23 Cefuroxime Axetil (Ceftin) 250 mg EVERY 12 HOURS ORAL 05/07/20 13:30 05/14/20 13:29 Dextrose/Sodium Chloride 1,000 ml @ 50 mls/hr Q20H IV 05/06/20 10:45 06/05/20 10:44 05/06/20 11:24 Diphenhydramine HCl (Benadryl) 25 mg Q6H PRN ORAL Itching 05/06/20 00:15 06/05/20 00:14 Divalproex Sodium (Depakote Sprinkles) 125 mg DAILY ORAL 05/06/20 09:00 06/05/20 08:59 05/07/20 09:32 Heparin Sodium (Porcine) (Heparin 5000 units/ml) 5,000 units EVERY 12 HOURS SUBQ 05/06/20 09:00 06/20/20 08:59 05/06/20 20:17 Lisinopril (PriniviL) 40 mg DAILY ORAL 05/06/20 09:00 06/05/20 08:59 05/06/20 09:26 Ondansetron HCl (Zofran) 4 mg Q6H PRN IVP Nausea & Vomiting 05/06/20 00:15 06/05/20 00:14 Wale Schofield MD May 07, 2020 13:08
[2020-05-07 16:00] VITALS: BP 127/72
--- NOTE | 2020-05-07 17:19 | Surgery Progress Note ---
Surgery Progress Note Subjective Additional Comments not always cooperative with care plan non compliant at times no acute events respiratory okay Objective Last 24 Hour Vital Signs Date Time Temp Pulse Resp B/P (MAP) Pulse Ox O2 Delivery O2 Flow Rate FiO2 05/07/20 16:00 97.9 81 19 127/72 (90) 98 05/07/20 12:00 98.6 79 18 121/60 (80) 97 05/07/20 09:00 Room Air 05/07/20 09:00 119/62 05/07/20 08:00 97.8 71 19 119/62 (81) 96 05/07/20 04:07 97.9 68 17 133/65 (87) 96 05/06/20 23:44 97.5 76 16 130/60 (83) 97 05/06/20 20:57 Room Air 05/06/20 20:00 97.4 72 17 136/56 (82) 97 I&O Intake and Output 05/06/20 05/07/20 19:00 07:00 Intake Total 50 ml 760 ml Balance 50 ml 760 ml Intake Oral 360 ml IV Total 50 ml 400 ml # Voids 3 2 Cardiovascular: RSR Respiratory: decreased breath sounds Abdomen: non-tender, present bowel sounds Extremities: no edema, no tenderness, no cyanosis Plan Problems: (1) Incontinence associated dermatitis Assessment & Plan: Patient identified admission to have incontinence associated and tightness around the sacral region. There is skin breakdown in the sacral cleft as well as the bilateral buttock and the sacral periwound with mild maceration of the epidermis but no open lesions. Patient is recently having diarrhea and at high risk for further breakdown. BMI of 29 albumin of 3.8 as the patient does have fairly good nutritional status at this time. To ensure that patient does not have further breakdown or opening of the skin will monitor for incontinence/diarrhea and treat accordingly. In the meantime continue with nutritional optimization as well as turning patient every 2 hours offloading pressure with pillows. Wash wounds daily with normal saline apply OPTi foam dressing to the sacral area okay to change every 3 days with skin protectant unless there is incontinence at which time change accordingly. Thank you will follow with recommendations (2) COVID-19 Assessment & Plan: COVID + ID input noted appreciated The cardiac and mediastinal silhouettes are unremarkable. Minor scattered areas of atelectasis in both lung bases. Negative for pneumothorax or pleural fluid collections. Benyamini,Jeramy May 07, 2020 17:19
[2020-05-07 20:00] VITALS: BP 130/64
[2020-05-08] VITALS: BP 151/64
[2020-05-08] MEDS: D5 1/2NS 1,000 ML IV SCH ×2 (01:58→21:05)
[2020-05-08 08:00] VITALS: BP 127/55
[2020-05-08 08:24] LABS: BASOPHILS % (AUTO) 0.3 % (0.0-2.0); EOSINOPHILS % (AUTO) 0.8 % (0.0-3.0); HEMATOCRIT 46.5 % (37.0-47.0); HEMOGLOBIN 14.7 G/DL (12.0-16.0); MEAN CORPUSCULAR VOLUME 102 FL (80-99); PLATELET COUNT 262 K/UL (150-450); RED BLOOD COUNT 4.57 M/UL (4.20-5.40); RED CELL DISTRIBUTION WIDTH 13.1 % (11.6-14.8); WHITE BLOOD COUNT 9.2 K/UL (4.8-10.8)
[2020-05-08 08:50] LABS: FERRITIN 235 NG/ML (8-388); LACTATE DEHYDROGENASE 219 U/L (81-234)
[2020-05-08] MEDS: Depakote 125mg Sprinkles ORAL SCH (09:25)
[2020-05-08] MEDS: Lisinopril 20mg tab ORAL SCH (09:25)
[2020-05-08] MEDS: Heparin 5000 units/ml inj SUBQ SCH ×2 (09:27→21:05)
--- NOTE | 2020-05-08 10:50 | Pulmonology Progress Note ---
Subjective Constitutional: Denies: fever Gastrointestinal/Abdominal: Denies: nausea, vomiting Psychiatric: Denies: depression Skin: Denies: rash Allergies: Coded Allergies: No Known Allergies (Unverified , 05/05/20) Subjective remains in isolation pulse ox stable on RA responsive, but very demented Objective Last 24 Hour Vital Signs Date Time Temp Pulse Resp B/P (MAP) Pulse Ox O2 Delivery O2 Flow Rate FiO2 05/08/20 09:25 127/55 05/08/20 00:00 98.5 91 19 151/64 (93) 98 05/07/20 20:57 Room Air 05/07/20 20:00 98.3 92 19 130/64 (86) 98 05/07/20 16:00 97.9 81 19 127/72 (90) 98 05/07/20 12:00 98.6 79 18 121/60 (80) 97 Intake and Output 05/07/20 05/08/20 19:00 07:00 Intake Total 200 ml 150 ml Balance 200 ml 150 ml Intake Oral 150 ml Other 200 ml # Voids 2 Objective General Appearance: no apparent distress, awake, very demented Lines, tubes and drains: peripheral HEENT: normocephalic, atraumatic, anicteric, mucous membranes moist Neck: non-tender, supple Respiratory/Chest: chest wall non-tender, lungs clear, no respiratory distress, no accessory muscle use Cardiovascular/Chest: normal rate Abdomen: normal bowel sounds, non tender, soft Genitourinary/Rectal: no CVAT Extremities: no calf tenderness, normal capillary refill, no edema Neurologic: alert but confused , no gross focal Musculoskeletal: atrophy Microbiology Date/Time Source Procedure Growth Status 05/05/20 21:30 Urine,Clean Catch Urine Culture - Preliminary Gram Negative Deepak Resulted 05/05/20 21:15 Blood Blood Culture - Preliminary Resulted 05/05/20 20:30 Rectum - Final NO CARBAPENEM-RESISTANT ENTEROBACTERI... Complete 05/05/20 20:30 Rectum VRE Culture - Final NO VANCOMYCIN RESISTANT ENTEROCOCCUS ... Complete 05/05/20 20:15 Nasopharynx SARS-CoV-2 RdRp Gene Assay - Final Complete Laboratory Tests 05/08/20 07:55: White Blood Count 9.2, Red Blood Count 4.57, Hemoglobin 14.7, Hematocrit 46.5, Mean Corpuscular Volume 102H, Mean Corpuscular Hemoglobin 32.2H, Mean Corpuscular Hemoglobin Concent 31.7L, Red Cell Distribution Width 13.1, Platelet Count 262, Mean Platelet Volume 6.9, Neutrophils (%) (Auto) 71.0, Lymphocytes (%) (Auto) 21.0, Monocytes (%) (Auto) 7.0, Eosinophils (%) (Auto) 0.8, Basophils (%) (Auto) 0.3, Ferritin 235, Lactate Dehydrogenase 219 Current Medications Medications (Trade) Dose Ordered Sig/Trina Route PRN Reason Start Time Stop Time Status Last Admin Dose Admin Acetaminophen (Tylenol) 650 mg Q4H PRN ORAL Temp >100.5 05/06/20 00:15 06/05/20 00:14 Albuterol Sulfate (Proventil MDI) 2 puff Q4H PRN INH Shortness of Breath 05/06/20 12:00 08/04/20 11:59 Barium Sulfate (Varibar Honey) 250 ml NOW PRN MC RAD 05/07/20 11:45 05/10/20 11:31 Barium Sulfate (Varibar [place]) 240 ml NOW PRN MC RAD 05/07/20 11:45 05/10/20 11:31 Barium Sulfate (Varibar Pudding) 230 ml NOW PRN MC RAD 05/07/20 11:45 05/10/20 11:31 Barium Sulfate (Varibar Thin Liquid powder) 148 gm NOW PRN MC RAD 05/07/20 11:45 05/10/20 11:31 Ceftriaxone Sodium 1 gm/ Dextrose 55 ml @ 110 mls/hr Q24H IVPB 05/06/20 10:45 05/13/20 10:44 05/06/20 11:23 Cefuroxime Axetil (Ceftin) 250 mg EVERY 12 HOURS ORAL 05/07/20 13:30 05/14/20 13:29 05/08/20 09:24 Dextrose/Sodium Chloride 1,000 ml @ 50 mls/hr Q20H IV 05/06/20 10:45 06/05/20 10:44 05/06/20 11:24 Diphenhydramine HCl (Benadryl) 25 mg Q6H PRN ORAL Itching 05/06/20 00:15 06/05/20 00:14 Divalproex Sodium (Depakote Sprinkles) 125 mg DAILY ORAL 05/06/20 09:00 06/05/20 08:59 05/08/20 09:25 Heparin Sodium (Porcine) (Heparin 5000 units/ml) 5,000 units EVERY 12 HOURS SUBQ 05/06/20 09:00 06/20/20 08:59 05/08/20 09:27 Linezolid (Zyvox) 600 mg EVERY 12 HOURS ORAL 05/07/20 21:00 05/12/20 20:59 05/08/20 09:26 Lisinopril (PriniviL) 40 mg DAILY ORAL 05/06/20 09:00 06/05/20 08:59 05/08/20 09:25 Ondansetron HCl (Zofran) 4 mg Q6H PRN IVP Nausea & Vomiting 05/06/20 00:15 06/05/20 00:14 Assessment/Plan Assessment/Plan ASSESSMENT COVID 19 infection Complicated UTI with diarrhea and generalized weakness Hypertension Hyperlipidemia Dementia Mild dehydration Thrombocytopenia - already resolved PLAN OF CARE MS floor isolation closely monitor resp status, pulse oximetry remains stable on RA; CXR no acute CP pathology hold off on steroids and abx for PNA, Remdesivivr not indicated in this case ID follows CRP NGT, D dimer 2.3, check LDH -219 and ferritin 235; both stable IL6 still pending follow up with CXR in few days Albuterol via MDI prn DVT prophylaxis Venous Duplex BLE UA c/w with probable UTI UCX + GNR, fup with final cx started on empiric Ceftriaxone declined IV access now on oral Ceftin as per ID recs gentle IV hydration monitor volumes, renal parameters, lytes BP management with ANJALI BSSE aspiration precautions DNR/DNI status may need SNF placement will repeat rapid COVID 19 case discussed and evaluated by supervising physician Liseth Miranda NP May 08, 2020 10:50
[2020-05-08 12:00] VITALS: BP 121/59
--- NOTE | 2020-05-08 14:03 | Surgery Progress Note ---
Surgery Progress Note Subjective Additional Comments afebrile, HD stable COVID recent negative no complaints Objective Last 24 Hour Vital Signs Date Time Temp Pulse Resp B/P (MAP) Pulse Ox O2 Delivery O2 Flow Rate FiO2 05/08/20 12:00 97.8 71 18 121/59 (79) 97 05/08/20 09:25 127/55 05/08/20 09:00 Room Air 05/08/20 08:00 98.6 71 18 127/55 (79) 96 05/08/20 00:00 98.5 91 19 151/64 (93) 98 05/07/20 20:57 Room Air 05/07/20 20:00 98.3 92 19 130/64 (86) 98 05/07/20 16:00 97.9 81 19 127/72 (90) 98 I&O Intake and Output 05/07/20 05/08/20 19:00 07:00 Intake Total 200 ml 150 ml Balance 200 ml 150 ml Intake Oral 150 ml Other 200 ml # Voids 2 Dressing: saturated Cardiovascular: RSR Respiratory: decreased breath sounds Abdomen: non-tender, present bowel sounds Extremities: no edema, no tenderness, no cyanosis Laboratory Tests Test 05/08/20 07:55 White Blood Count 9.2 K/UL (4.8-10.8) Red Blood Count 4.57 M/UL (4.20-5.40) Hemoglobin 14.7 G/DL (12.0-16.0) Hematocrit 46.5 % (37.0-47.0) Mean Corpuscular Volume 102 FL (80-99) H Mean Corpuscular Hemoglobin 32.2 PG (27.0-31.0) H Mean Corpuscular Hemoglobin Concent 31.7 G/DL (32.0-36.0) L Red Cell Distribution Width 13.1 % (11.6-14.8) Platelet Count 262 K/UL (150-450) Mean Platelet Volume 6.9 FL (6.5-10.1) Neutrophils (%) (Auto) 71.0 % (45.0-75.0) Lymphocytes (%) (Auto) 21.0 % (20.0-45.0) Monocytes (%) (Auto) 7.0 % (1.0-10.0) Eosinophils (%) (Auto) 0.8 % (0.0-3.0) Basophils (%) (Auto) 0.3 % (0.0-2.0) Ferritin 235 NG/ML (8-388) Lactate Dehydrogenase 219 U/L (81-234) Plan Problems: (1) Incontinence associated dermatitis Assessment & Plan: Patient identified admission to have incontinence associated and tightness around the sacral region. There is skin breakdown in the sacral cleft as well as the bilateral buttock and the sacral periwound with mild maceration of the epidermis but no open lesions. Patient is recently having diarrhea and at high risk for further breakdown. BMI of 29 albumin of 3.8 as the patient does have fairly good nutritional status at this time. To ensure that patient does not have further breakdown or opening of the skin will monitor for incontinence/diarrhea and treat accordingly. In the meantime continue with nutritional optimization as well as turning patient every 2 hours offloading pressure with pillows. Wash wounds daily with normal saline apply OPTi foam dressing to the sacral area okay to change every 3 days with skin protectant unless there is incontinence at which time change accordingly. Thank you will follow with recommendations (2) COVID-19 Assessment & Plan: COVID + ID input noted appreciated The cardiac and mediastinal silhouettes are unremarkable. Minor scattered areas of atelectasis in both lung bases. Negative for pneumothorax or pleural fluid collections. Jeramy Rhodes May 08, 2020 14:03
[2020-05-08 16:00] VITALS: BP 126/68
--- NOTE | 2020-05-08 17:42 | Infectious Diseases Prog Note ---
Assessment/Plan Assessment/Plan ASSESSMENT AND PLAN: 1. e.coli uti, ? gram + bacteremia vs contaminant, patient pulls out iv's - no iv access - ceftin - day # 3 abx tx for uti - zyvox pending blood culture identification of gram + - monitor labs 2. COVID-19 infection. Continue isolation. There is no indication for remdesivir or dexamethasone at this time. Saturation is 95% on room air without any respiratory symptoms - f/u rapid test neg x 1, repeat in at least 24 hrs 3. Patient has history of hypertension. 4. Dementia. 5. Blood pressure treatment per primary care team. 6. Dyslipidemia. 7. Thrombocytopenia. 8. Dehydration. 9. IV fluids. 10. Continue treatment per primary consultants. 11. No known drug allergies. 12. Social history is negative. 13. Family history is noncontributory. 14. MAR is noted. 15. Case was discussed with RN. Subjective Constitutional: Denies: fever HEENT: Denies: congestion Respiratory: Denies: shortness of breath Cardiovascular: Denies: chest pain Gastrointestinal/Abdominal: Denies: nausea, vomiting, diarrhea Genitourinary: Reports: other - no paredes Neurologic: Denies: headache Psychiatric: Denies: depression Skin: Denies: rash Hematologic: Denies: bleeding Musculoskeletal: Denies: pain Allergies: Coded Allergies: No Known Allergies (Unverified , 05/05/20) Objective Last 24 Hour Vital Signs Date Time Temp Pulse Resp B/P (MAP) Pulse Ox O2 Delivery O2 Flow Rate FiO2 05/08/20 16:00 97.5 78 19 126/68 (87) 98 05/08/20 12:00 97.8 71 18 121/59 (79) 97 05/08/20 09:25 127/55 05/08/20 09:00 Room Air 05/08/20 08:00 98.6 71 18 127/55 (79) 96 05/08/20 00:00 98.5 91 19 151/64 (93) 98 05/07/20 20:57 Room Air 05/07/20 20:00 98.3 92 19 130/64 (86) 98 Height (Feet): 5 Height (Inches): 5.00 Weight (Pounds): 175 General Appearance: no acute distress HEENT: normocephalic, atraumatic, anicteric, mucous membranes moist Respiratory/Chest: lungs clear, normal breath sounds, no respiratory distress, no accessory muscle use Cardiovascular: normal rate, regular rhythm, no gallop/murmur, no JVD Abdomen: normal bowel sounds, soft, non tender, no organomegaly, non distended Genitourinary: other - no paredes Extremities: no cyanosis Skin: no rash 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 COMPARISON: No relevant prior studies available. FINDINGS: The cardiac and mediastinal silhouettes are unremarkable. Minor scattered areas of atelectasis in both lung bases. Negative for pneumothorax or pleural fluid collections. Microbiology Date/Time Source Procedure Growth Status 05/08/20 12:30 Nasopharynx SARS-CoV-2 RdRp Gene Assay - Final Complete 05/05/20 21:30 Urine,Clean Catch Urine Culture - Final Escherichia Coli Complete 05/05/20 21:15 Blood Blood Culture - Preliminary Gram Positive Cocci Resulted 05/05/20 20:30 Rectum - Final NO CARBAPENEM-RESISTANT ENTEROBACTERI... Complete 05/05/20 20:30 Rectum VRE Culture - Final NO VANCOMYCIN RESISTANT ENTEROCOCCUS ... Complete 05/05/20 20:15 Nasal Nares MRSA Culture - Final NO METHICILLIN RESISTANT STAPH AUREUS... Complete 05/05/20 20:15 Nasopharynx SARS-CoV-2 RdRp Gene Assay - Final Complete Labs Test 05/05/20 20:15 05/05/20 21:30 05/06/20 05:15 05/08/20 07:55 White Blood Count 10.0 K/UL (4.8-10.8) 10.3 K/UL (4.8-10.8) 9.2 K/UL (4.8-10.8) Red Blood Count 4.23 M/UL (4.20-5.40) 4.16 M/UL (4.20-5.40) 4.57 M/UL (4.20-5.40) Hemoglobin 13.9 G/DL (12.0-16.0) 13.5 G/DL (12.0-16.0) 14.7 G/DL (12.0-16.0) Hematocrit 44.0 % (37.0-47.0) 42.7 % (37.0-47.0) 46.5 % (37.0-47.0) Mean Corpuscular Volume 104 FL (80-99) 103 FL (80-99) 102 FL (80-99) Mean Corpuscular Hemoglobin 33.0 PG (27.0-31.0) 32.5 PG (27.0-31.0) 32.2 PG (27.0-31.0) Mean Corpuscular Hemoglobin Concent 31.7 G/DL (32.0-36.0) 31.7 G/DL (32.0-36.0) 31.7 G/DL (32.0-36.0) Red Cell Distribution Width 13.3 % (11.6-14.8) 13.2 % (11.6-14.8) 13.1 % (11.6-14.8) Platelet Count 137 K/UL (150-450) 238 K/UL (150-450) 262 K/UL (150-450) Mean Platelet Volume 9.4 FL (6.5-10.1) 7.2 FL (6.5-10.1) 6.9 FL (6.5-10.1) Neutrophils (%) (Auto) 58.4 % (45.0-75.0) 70.4 % (45.0-75.0) 71.0 % (45.0-75.0) Lymphocytes (%) (Auto) 31.2 % (20.0-45.0) 21.8 % (20.0-45.0) 21.0 % (20.0-45.0) Monocytes (%) (Auto) 8.2 % (1.0-10.0) 6.7 % (1.0-10.0) 7.0 % (1.0-10.0) Eosinophils (%) (Auto) 1.7 % (0.0-3.0) 0.8 % (0.0-3.0) 0.8 % (0.0-3.0) Basophils (%) (Auto) 0.6 % (0.0-2.0) 0.3 % (0.0-2.0) 0.3 % (0.0-2.0) Sodium Level 139 MMOL/L (136-145) 141 MMOL/L (136-145) Potassium Level 4.6 MMOL/L (3.5-5.1) 4.1 MMOL/L (3.5-5.1) Chloride Level 103 MMOL/L (98-107) 104 MMOL/L (98-107) Carbon Dioxide Level 30 MMOL/L (21-32) 29 MMOL/L (21-32) Anion Gap 6 mmol/L (5-15) 8 mmol/L (5-15) Blood Urea Nitrogen 31 mg/dL (7-18) 24 mg/dL (7-18) Creatinine 1.2 MG/DL (0.55-1.30) 1.1 MG/DL (0.55-1.30) Estimat Glomerular Filtration Rate 42.8 mL/min (>60) 47.3 mL/min (>60) Glucose Level 107 MG/DL (74-106) 98 MG/DL (74-106) Calcium Level 9.6 MG/DL (8.5-10.1) 9.3 MG/DL (8.5-10.1) Total Bilirubin 0.1 MG/DL (0.2-1.0) Aspartate Amino Transf (AST/SGOT) 21 U/L (15-37) Alanine Aminotransferase (ALT/SGPT) 19 U/L (12-78) Alkaline Phosphatase 44 U/L (46-116) Total Protein 8.2 G/DL (6.4-8.2) Albumin 3.8 G/DL (3.4-5.0) Globulin 4.4 g/dL Albumin/Globulin Ratio 0.9 (1.0-2.7) Urine Color Pale yellow Urine Appearance Cloudy Urine pH 5 (4.5-8.0) Urine Specific [place] 1.020 (1.005-1.035) Urine Protein 2+ (NEGATIVE) Urine Glucose (UA) Negative (NEGATIVE) Urine Ketones Negative (NEGATIVE) Urine Blood 4+ (NEGATIVE) Urine Nitrite Positive (NEGATIVE) Urine Bilirubin Negative (NEGATIVE) Urine Urobilinogen Normal MG/DL (0.0-1.0) Urine Leukocyte Esterase 3+ (NEGATIVE) Urine RBC 0-2 /HPF (0 - 2) Urine WBC Tntc /HPF (0 - 2) Urine Squamous Epithelial Cells Occasional /LPF Urine Bacteria Many /HPF (NONE) Erythrocyte Sedimentation Rate 26 MM/HR (0-30) D-Dimer 2.30 mg/L FEU (0.00-0.49) C-Reactive Protein, Quantitative < 0.4 mg/dL (0.00-0.90) Ferritin 235 NG/ML (8-388) Lactate Dehydrogenase 219 U/L (81-234) Laboratory Tests Test 05/08/20 07:55 White Blood Count 9.2 K/UL (4.8-10.8) Red Blood Count 4.57 M/UL (4.20-5.40) Hemoglobin 14.7 G/DL (12.0-16.0) Hematocrit 46.5 % (37.0-47.0) Mean Corpuscular Volume 102 FL (80-99) H Mean Corpuscular Hemoglobin 32.2 PG (27.0-31.0) H Mean Corpuscular Hemoglobin Concent 31.7 G/DL (32.0-36.0) L Red Cell Distribution Width 13.1 % (11.6-14.8) Platelet Count 262 K/UL (150-450) Mean Platelet Volume 6.9 FL (6.5-10.1) Neutrophils (%) (Auto) 71.0 % (45.0-75.0) Lymphocytes (%) (Auto) 21.0 % (20.0-45.0) Monocytes (%) (Auto) 7.0 % (1.0-10.0) Eosinophils (%) (Auto) 0.8 % (0.0-3.0) Basophils (%) (Auto) 0.3 % (0.0-2.0) Ferritin 235 NG/ML (8-388) Lactate Dehydrogenase 219 U/L (81-234) Current Medications Medications (Trade) Dose Ordered Sig/Trina Route PRN Reason Start Time Stop Time Status Last Admin Dose Admin Acetaminophen (Tylenol) 650 mg Q4H PRN ORAL Temp >100.5 05/06/20 00:15 06/05/20 00:14 Albuterol Sulfate (Proventil MDI) 2 puff Q4H PRN INH Shortness of Breath 05/06/20 12:00 08/04/20 11:59 Barium Sulfate (Varibar Honey) 250 ml NOW PRN RAD 05/07/20 11:45 05/10/20 11:31 Barium Sulfate (Varibar [place]) 240 ml NOW PRN RAD 05/07/20 11:45 05/10/20 11:31 Barium Sulfate (Varibar Pudding) 230 ml NOW PRN RAD 05/07/20 11:45 05/10/20 11:31 Barium Sulfate (Varibar Thin Liquid powder) 148 gm NOW PRN RAD 05/07/20 11:45 05/10/20 11:31 Cefuroxime Axetil (Ceftin) 250 mg EVERY 12 HOURS ORAL 05/07/20 13:30 05/14/20 13:29 05/08/20 09:24 Dextrose/Sodium Chloride 1,000 ml @ 50 mls/hr Q20H IV 05/06/20 10:45 06/05/20 10:44 05/06/20 11:24 Diphenhydramine HCl (Benadryl) 25 mg Q6H PRN ORAL Itching 05/06/20 00:15 06/05/20 00:14 Divalproex Sodium (Depakote Sprinkles) 125 mg DAILY ORAL 05/06/20 09:00 06/05/20 08:59 05/08/20 09:25 Heparin Sodium (Porcine) (Heparin 5000 units/ml) 5,000 units EVERY 12 HOURS SUBQ 05/06/20 09:00 06/20/20 08:59 05/08/20 09:27 Linezolid (Zyvox) 600 mg EVERY 12 HOURS ORAL 05/07/20 21:00 05/12/20 20:59 05/08/20 09:26 Lisinopril (PriniviL) 40 mg DAILY ORAL 05/06/20 09:00 06/05/20 08:59 05/08/20 09:25 Ondansetron HCl (Zofran) 4 mg Q6H PRN IVP Nausea & Vomiting 05/06/20 00:15 06/05/20 00:14 Wale Schofield MD May 08, 2020 17:42
[2020-05-09 08:00] VITALS: BP 155/99
--- NOTE | 2020-05-09 08:43 | Pulmonology Progress Note ---
Subjective Constitutional: Denies: fever Gastrointestinal/Abdominal: Denies: nausea, vomiting, diarrhea Psychiatric: Denies: depression Skin: Denies: rash Musculoskeletal: Denies: pain Allergies: Coded Allergies: No Known Allergies (Unverified , 05/05/20) Subjective remains in isolation pulse ox stable on RA remains afebrile, no signs of resp distress responsive, demented repeated COVID 19 NGT BCX + GPC, started on Linezolid Objective Last 24 Hour Vital Signs Date Time Temp Pulse Resp B/P (MAP) Pulse Ox O2 Delivery O2 Flow Rate FiO2 05/09/20 00:00 98.4 05/08/20 21:39 Room Air 05/08/20 16:00 97.5 78 19 126/68 (87) 98 05/08/20 12:00 97.8 71 18 121/59 (79) 97 05/08/20 09:25 127/55 05/08/20 09:00 Room Air Intake and Output 05/08/20 05/09/20 19:00 07:00 Intake Total 100 ml Balance 100 ml Other 100 ml # Voids 2 Objective General Appearance: no apparent distress, awake, demented, calm Lines, tubes and drains: peripheral HEENT: normocephalic, atraumatic, anicteric, mucous membranes moist Neck: non-tender, supple Respiratory/Chest: chest wall non-tender, lungs clear, no respiratory distress, no accessory muscle use Cardiovascular/Chest: normal rate Abdomen: normal bowel sounds, non tender, soft Genitourinary/Rectal: no CVAT Extremities: no calf tenderness, normal capillary refill, no edema Neurologic: alert , confused , no gross focal Musculoskeletal: atrophy Microbiology Date/Time Source Procedure Growth Status 05/08/20 12:30 Nasopharynx SARS-CoV-2 RdRp Gene Assay - Final Complete Current Medications Medications (Trade) Dose Ordered Sig/Trina Route PRN Reason Start Time Stop Time Status Last Admin Dose Admin Acetaminophen (Tylenol) 650 mg Q4H PRN ORAL Temp >100.5 05/06/20 00:15 06/05/20 00:14 Albuterol Sulfate (Proventil MDI) 2 puff Q4H PRN INH Shortness of Breath 05/06/20 12:00 08/04/20 11:59 Barium Sulfate (Varibar Honey) 250 ml NOW PRN MC RAD 05/07/20 11:45 05/10/20 11:31 Barium Sulfate (Varibar [place]) 240 ml NOW PRN RAD 05/07/20 11:45 05/10/20 11:31 Barium Sulfate (Varibar Pudding) 230 ml NOW PRN RAD 05/07/20 11:45 05/10/20 11:31 Barium Sulfate (Varibar Thin Liquid powder) 148 gm NOW PRN RAD 05/07/20 11:45 05/10/20 11:31 Cefuroxime Axetil (Ceftin) 250 mg EVERY 12 HOURS ORAL 05/07/20 13:30 05/14/20 13:29 05/08/20 21:04 Dextrose/Sodium Chloride 1,000 ml @ 50 mls/hr Q20H IV 05/06/20 10:45 06/05/20 10:44 05/06/20 11:24 Diphenhydramine HCl (Benadryl) 25 mg Q6H PRN ORAL Itching 05/06/20 00:15 06/05/20 00:14 Divalproex Sodium (Depakote Sprinkles) 125 mg DAILY ORAL 05/06/20 09:00 06/05/20 08:59 05/08/20 09:25 Heparin Sodium (Porcine) (Heparin 5000 units/ml) 5,000 units EVERY 12 HOURS SUBQ 05/06/20 09:00 06/20/20 08:59 05/08/20 21:05 Linezolid (Zyvox) 600 mg EVERY 12 HOURS ORAL 05/07/20 21:00 05/12/20 20:59 05/08/20 21:04 Lisinopril (PriniviL) 40 mg DAILY ORAL 05/06/20 09:00 06/05/20 08:59 05/08/20 09:25 Ondansetron HCl (Zofran) 4 mg Q6H PRN IVP Nausea & Vomiting 05/06/20 00:15 06/05/20 00:14 Assessment/Plan Assessment/Plan ASSESSMENT COVID 19 infection Complicated UTI with diarrhea and generalized weakness GP Bacteremia - ? real vs contamination Hypertension Hyperlipidemia Dementia Mild dehydration Thrombocytopenia - already resolved PLAN OF CARE MS floor isolation closely monitor resp status, pulse oximetry remains stable on RA; CXR no acute CP pathology hold off on steroids and abx for PNA, Remdesivivr not indicated in this case ID follows CRP NGT, D dimer 2.3, check LDH -219 and ferritin 235; both stable IL6 still pending follow up with CXR in few days Albuterol via MDI prn DVT prophylaxis Venous Duplex BLE UA c/w with probable UTI UCX + E coli , on Ceftin since refused IV access BCX+ GPC - ? real vs contamination, started on Zyvox po pending C&S repeated rapid COVID 19 05/08 NGT discussed with ID, wants to repeat another COVID test today, since most facilities require two negative COVID will repeat COVID 19 gentle IV hydration monitor volumes, renal parameters, lytes BP management with ANJALI BSSE aspiration precautions DNR/DNI status may need SNF placement case discussed and evaluated by supervising physician Liseth Miranda NP May 09, 2020 08:43
[2020-05-09 08:52] LABS: BASOPHILS % (AUTO) 0.5 % (0.0-2.0); EOSINOPHILS % (AUTO) 1.2 % (0.0-3.0); HEMATOCRIT 46.9 % (37.0-47.0); HEMOGLOBIN 14.8 G/DL (12.0-16.0); LYMPHOCYTES % (AUTO) 26.9 % (20.0-45.0); MEAN CORPUSCULAR VOLUME 104 FL (80-99); MONOCYTES % (AUTO) 7.4 % (1.0-10.0); PLATELET COUNT 202 K/UL (150-450); RED BLOOD COUNT 4.52 M/UL (4.20-5.40); RED CELL DISTRIBUTION WIDTH 13.5 % (11.6-14.8); WHITE BLOOD COUNT 8.5 K/UL (4.8-10.8)
[2020-05-09] MEDS: Lisinopril 20mg tab ORAL SCH (09:02)
[2020-05-09] MEDS: Depakote 125mg Sprinkles ORAL SCH (09:03)
[2020-05-09] MEDS: Heparin 5000 units/ml inj SUBQ SCH ×2 (09:05→09:21)
[2020-05-09 09:22] LABS: ALBUMIN 3.4 G/DL (3.4-5.0); ALBUMIN/GLOBULIN RATIO 0.8 (1.0-2.7); BILIRUBIN,TOTAL 0.3 MG/DL (0.2-1.0); CALCIUM 9.2 MG/DL (8.5-10.1); POTASSIUM 4.2 MMOL/L (3.5-5.1)
[2020-05-09 12:00] VITALS: BP 145/85
[2020-05-09 16:00] VITALS: BP 150/80
--- NOTE | 2020-05-09 16:10 | Surgery Progress Note ---
Surgery Progress Note Subjective Additional Comments urine and blood cultures noted on abx comfortable no n/v Objective Last 24 Hour Vital Signs Date Time Temp Pulse Resp B/P (MAP) Pulse Ox O2 Delivery O2 Flow Rate FiO2 05/09/20 12:00 97.9 86 19 145/85 (105) 97 05/09/20 09:02 155/99 05/09/20 09:00 Room Air 05/09/20 08:00 97.2 80 20 155/99 (117) 97 05/09/20 00:00 98.4 05/08/20 21:39 Room Air I&O Intake and Output 05/08/20 05/09/20 19:00 07:00 Intake Total 100 ml Balance 100 ml Other 100 ml # Voids 2 Dressing: saturated Cardiovascular: RSR Respiratory: decreased breath sounds Abdomen: non-tender, present bowel sounds Extremities: no edema, no tenderness, no cyanosis Laboratory Tests Test 05/09/20 08:10 White Blood Count 8.5 K/UL (4.8-10.8) Red Blood Count 4.52 M/UL (4.20-5.40) Hemoglobin 14.8 G/DL (12.0-16.0) Hematocrit 46.9 % (37.0-47.0) Mean Corpuscular Volume 104 FL (80-99) H Mean Corpuscular Hemoglobin 32.8 PG (27.0-31.0) H Mean Corpuscular Hemoglobin Concent 31.6 G/DL (32.0-36.0) L Red Cell Distribution Width 13.5 % (11.6-14.8) Platelet Count 202 K/UL (150-450) Mean Platelet Volume 8.1 FL (6.5-10.1) Neutrophils (%) (Auto) 64.0 % (45.0-75.0) Lymphocytes (%) (Auto) 26.9 % (20.0-45.0) Monocytes (%) (Auto) 7.4 % (1.0-10.0) Eosinophils (%) (Auto) 1.2 % (0.0-3.0) Basophils (%) (Auto) 0.5 % (0.0-2.0) Sodium Level 140 MMOL/L (136-145) Potassium Level 4.2 MMOL/L (3.5-5.1) Chloride Level 106 MMOL/L (98-107) Carbon Dioxide Level 25 MMOL/L (21-32) Anion Gap 9 mmol/L (5-15) Blood Urea Nitrogen 22 mg/dL (7-18) H Creatinine 1.0 MG/DL (0.55-1.30) Estimat Glomerular Filtration Rate 52.8 mL/min (>60) Glucose Level 91 MG/DL (74-106) Calcium Level 9.2 MG/DL (8.5-10.1) Total Bilirubin 0.3 MG/DL (0.2-1.0) Aspartate Amino Transf (AST/SGOT) 28 U/L (15-37) Alanine Aminotransferase (ALT/SGPT) 31 U/L (12-78) Alkaline Phosphatase 38 U/L (46-116) L Total Protein 7.7 G/DL (6.4-8.2) Albumin 3.4 G/DL (3.4-5.0) Globulin 4.3 g/dL Albumin/Globulin Ratio 0.8 (1.0-2.7) L Plan Problems: (1) Incontinence associated dermatitis Assessment & Plan: Patient identified admission to have incontinence associated and tightness around the sacral region. There is skin breakdown in the sacral cleft as well as the bilateral buttock and the sacral periwound with mild maceration of the epidermis but no open lesions. Patient is recently having diarrhea and at high risk for further breakdown. BMI of 29 albumin of 3.8 as the patient does have fairly good nutritional status at this time. To ensure that patient does not have further breakdown or opening of the skin will monitor for incontinence/diarrhea and treat accordingly. In the meantime continue with nutritional optimization as well as turning patient every 2 hours offloading pressure with pillows. Wash wounds daily with normal saline apply OPTi foam dressing to the sacral area okay to change every 3 days with skin protectant unless there is incontinence at which time change accordingly. Thank you will follow with recommendations (2) COVID-19 Assessment & Plan: COVID + ID input noted appreciated The cardiac and mediastinal silhouettes are unremarkable. Minor scattered areas of atelectasis in both lung bases. Negative for pneumothorax or pleural fluid collections. Jeramy Rhdoes May 09, 2020 16:10
[2020-05-09] MEDS: D5 1/2NS 1,000 ML IV SCH (18:45)
[2020-05-10] VITALS: BP 104/49
[2020-05-10 04:00] VITALS: BP 141/72
[2020-05-10 06:46] LABS: BASOPHILS % (AUTO) 0.3 % (0.0-2.0); EOSINOPHILS % (AUTO) 0.6 % (0.0-3.0); HEMATOCRIT 51.5 % (37.0-47.0); HEMOGLOBIN 16.4 G/DL (12.0-16.0); LYMPHOCYTES % (AUTO) 23.1 % (20.0-45.0); MEAN CORPUSCULAR VOLUME 103 FL (80-99); MONOCYTES % (AUTO) 7.4 % (1.0-10.0); NEUTROPHILS % (AUTO) 68.5 % (45.0-75.0); PLATELET COUNT 260 K/UL (150-450); RED CELL DISTRIBUTION WIDTH 13.6 % (11.6-14.8); WHITE BLOOD COUNT 10.7 K/UL (4.8-10.8)
[2020-05-10 06:58] LABS: CALCIUM 9.7 MG/DL (8.5-10.1); CREATININE 1.2 MG/DL (0.55-1.30); POTASSIUM 4.3 MMOL/L (3.5-5.1)
[2020-05-10 08:00] VITALS: BP 126/68
--- NOTE | 2020-05-10 09:09 | Pulmonology Progress Note ---
Subjective Constitutional: Denies: fever Gastrointestinal/Abdominal: Denies: nausea, vomiting, diarrhea Psychiatric: Denies: depression Skin: Denies: rash Musculoskeletal: Denies: pain Allergies: Coded Allergies: No Known Allergies (Unverified , 05/05/20) Subjective remains in isolation pulse ox stable on RA remains afebrile, no signs of resp distress responsive, demented repeated COVID 19 x2 NGT BCX + GPC, started on Linezolid , now show Staph hominis Objective Last 24 Hour Vital Signs Date Time Temp Pulse Resp B/P (MAP) Pulse Ox O2 Delivery O2 Flow Rate FiO2 05/10/20 08:00 97.9 85 19 126/68 (87) 98 05/10/20 04:00 98.6 65 18 141/72 (95) 93 05/10/20 00:00 97.9 106 19 104/49 (67) 93 05/09/20 21:00 Room Air 05/09/20 20:00 20 97 05/09/20 16:00 98.0 78 17 150/80 (103) 97 05/09/20 12:00 97.9 86 19 145/85 (105) 97 Intake and Output 05/09/20 05/10/20 19:00 07:00 Intake Total 140 ml 118 ml Balance 140 ml 118 ml Intake Oral 140 ml Other 118 ml # Voids 1 2 Objective General Appearance: no apparent distress, awake, demented, calm Lines, tubes and drains: peripheral HEENT: normocephalic, atraumatic, anicteric, mucous membranes moist Neck: non-tender, supple Respiratory/Chest: chest wall non-tender, lungs clear, no respiratory distress, no accessory muscle use Cardiovascular/Chest: normal rate Abdomen: normal bowel sounds, non tender, soft Genitourinary/Rectal: no CVAT Extremities: no calf tenderness, normal capillary refill, no edema Neurologic: alert , confused , no gross focal Musculoskeletal: atrophy Microbiology Date/Time Source Procedure Growth Status 05/09/20 16:58 Nasopharynx SARS-CoV-2 RdRp Gene Assay - Final Complete 05/08/20 12:30 Nasopharynx SARS-CoV-2 RdRp Gene Assay - Final Complete Laboratory Tests 05/10/20 05:50: White Blood Count 10.7, Red Blood Count 5.00, Hemoglobin 16.4H, Hematocrit 51.5H , Mean Corpuscular Volume 103H, Mean Corpuscular Hemoglobin 32.8H, Mean Corpuscular Hemoglobin Concent 31.8L, Red Cell Distribution Width 13.6, Platelet Count 260, Mean Platelet Volume 7.2, Neutrophils (%) (Auto) 68.5, Lymphocytes (%) (Auto) 23.1, Monocytes (%) (Auto) 7.4, Eosinophils (%) (Auto) 0.6, Basophils (%) (Auto) 0.3, Sodium Level 142, Potassium Level 4.3, Chloride Level 105, Carbon Dioxide Level 26, Anion Gap 11, Blood Urea Nitrogen 24H, Creatinine 1.2, Estimat Glomerular Filtration Rate 42.8, Glucose Level 95, Calcium Level 9.7 Current Medications Medications (Trade) Dose Ordered Sig/Trina Route PRN Reason Start Time Stop Time Status Last Admin Dose Admin Acetaminophen (Tylenol) 650 mg Q4H PRN ORAL Temp >100.5 05/06/20 00:15 06/05/20 00:14 Albuterol Sulfate (Proventil MDI) 2 puff Q4H PRN INH Shortness of Breath 05/06/20 12:00 08/04/20 11:59 Barium Sulfate (Varibar Honey) 250 ml NOW PRN RAD 05/07/20 11:45 05/10/20 11:31 Barium Sulfate (Varibar [place]) 240 ml NOW PRN MC RAD 05/07/20 11:45 05/10/20 11:31 Barium Sulfate (Varibar Pudding) 230 ml NOW PRN RAD 05/07/20 11:45 05/10/20 11:31 Barium Sulfate (Varibar Thin Liquid powder) 148 gm NOW PRN RAD 05/07/20 11:45 05/10/20 11:31 Cefuroxime Axetil (Ceftin) 250 mg EVERY 12 HOURS ORAL 05/07/20 13:30 05/14/20 13:29 05/09/20 22:39 Dextrose/Sodium Chloride 1,000 ml @ 50 mls/hr Q20H IV 05/06/20 10:45 06/05/20 10:44 05/06/20 11:24 Diphenhydramine HCl (Benadryl) 25 mg Q6H PRN ORAL Itching 05/06/20 00:15 06/05/20 00:14 Divalproex Sodium (Depakote Sprinkles) 125 mg DAILY ORAL 05/06/20 09:00 06/05/20 08:59 05/09/20 09:03 Heparin Sodium (Porcine) (Heparin 5000 units/ml) 5,000 units EVERY 12 HOURS SUBQ 05/06/20 09:00 06/20/20 08:59 05/09/20 09:05 Linezolid (Zyvox) 600 mg EVERY 12 HOURS ORAL 05/07/20 21:00 05/12/20 20:59 05/09/20 22:39 Lisinopril (PriniviL) 40 mg DAILY ORAL 05/06/20 09:00 06/05/20 08:59 05/09/20 09:02 Ondansetron HCl (Zofran) 4 mg Q6H PRN IVP Nausea & Vomiting 05/06/20 00:15 06/05/20 00:14 Assessment/Plan Assessment/Plan ASSESSMENT COVID 19 infection Complicated UTI with diarrhea and generalized weakness GP Bacteremia - ? real vs contamination -likely contaminant Hypertension Hyperlipidemia Dementia Mild dehydration Thrombocytopenia - already resolved PLAN OF CARE MS floor isolation closely monitor resp status, pulse oximetry remains stable on RA; CXR no acute CP pathology hold off on steroids and abx for PNA, Remdesivivr not indicated in this case ID follows CRP NGT, D dimer 2.3, check LDH -219 and ferritin 235; both stable IL6 still pending follow up with CXR today Albuterol via MDI prn DVT prophylaxis Venous Duplex BLE UA c/w with probable UTI UCX + E coli , on Ceftin since refused IV access BCX+ GPC - ? real vs contamination, started on Zyvox po pending C&S repeated rapid COVID 19 05/08 and 05/09 both NGT ? dc isolation - per ID recs BCX now with Staph hominis likely contaminant, ? dc Zyvox awaiting ID recs and clearance gentle IV hydration monitor volumes, renal parameters, lytes BP management with ANJALI BSSE aspiration precautions DNR/DNI status dc plan to assisted living vs SNF after cleared by ID case discussed and evaluated by supervising physician Liseth Miranda NP May 10, 2020 09:09
[2020-05-10] MEDS: Depakote 125mg Sprinkles ORAL SCH (09:10)
[2020-05-10] MEDS: Lisinopril 20mg tab ORAL SCH (09:10)
[2020-05-10] MEDS: Heparin 5000 units/ml inj SUBQ SCH ×2 (09:12→21:53)
[2020-05-10 12:00] VITALS: BP 135/82
--- NOTE | 2020-05-10 14:13 | Infectious Diseases Prog Note ---
Assessment/Plan Assessment/Plan ASSESSMENT AND PLAN: 1. 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 COVID-19 infection. Continue isolation. There is no indication for remdesivir or dexamethasone at this time. Saturation is 96% on room air without any respiratory symptoms - f/u rapid test neg x 2, consider discontinue isolation 3. Patient has history of hypertension. 4. Dementia. 5. Blood pressure treatment per primary care team. 6. Dyslipidemia. 7. Thrombocytopenia. 8. Dehydration. 9. IV fluids. 10. Continue treatment per primary consultants. 11. No known drug allergies. 12. Social history is negative. 13. Family history is noncontributory. 14. MAR is noted. 15. Case was discussed with RN. Subjective Constitutional: Denies: fever HEENT: Denies: congestion Respiratory: Denies: shortness of breath Cardiovascular: Denies: chest pain Gastrointestinal/Abdominal: Denies: nausea, vomiting, diarrhea Genitourinary: Reports: other - no paredes Neurologic: Denies: headache Psychiatric: Denies: depression Skin: Denies: rash Hematologic: Denies: bleeding Musculoskeletal: Denies: pain Allergies: Coded Allergies: No Known Allergies (Unverified , 05/05/20) Objective Last 24 Hour Vital Signs Date Time Temp Pulse Resp B/P (MAP) Pulse Ox O2 Delivery O2 Flow Rate FiO2 05/10/20 12:00 97.8 85 18 135/82 (99) 96 05/10/20 10:00 Room Air 05/10/20 09:10 126/68 05/10/20 08:00 97.9 85 19 126/68 (87) 98 05/10/20 04:00 98.6 65 18 141/72 (95) 93 05/10/20 00:00 97.9 106 19 104/49 (67) 93 05/09/20 21:00 Room Air 05/09/20 20:00 20 97 05/09/20 16:00 98.0 78 17 150/80 (103) 97 Height (Feet): 5 Height (Inches): 5.00 Weight (Pounds): 175 General Appearance: no acute distress HEENT: normocephalic, atraumatic, anicteric, mucous membranes moist Respiratory/Chest: lungs clear, normal breath sounds, no respiratory distress, no accessory muscle use Cardiovascular: normal rate, regular rhythm, no gallop/murmur, no JVD Abdomen: normal bowel sounds, soft, non tender, no organomegaly, non distended Genitourinary: other - no paredes Extremities: no cyanosis Skin: no rash 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 COMPARISON: No relevant prior studies available. FINDINGS: The cardiac and mediastinal silhouettes are unremarkable. Minor scattered areas of atelectasis in both lung bases. Negative for pneumothorax or pleural fluid collections. Microbiology Date/Time Source Procedure Growth Status 05/09/20 16:58 Nasopharynx SARS-CoV-2 RdRp Gene Assay - Final Complete 05/05/20 21:30 Urine,Clean Catch Urine Culture - Final Escherichia Coli Complete 05/05/20 21:30 Blood Blood Culture - Preliminary NO GROWTH AFTER 4 DAYS Resulted 05/05/20 20:30 Rectum - Final NO CARBAPENEM-RESISTANT ENTEROBACTERI... Complete Microbiology Date/Time Source Procedure Growth Status 05/09/20 16:58 Nasopharynx SARS-CoV-2 RdRp Gene Assay - Final Complete 05/08/20 12:30 Nasopharynx SARS-CoV-2 RdRp Gene Assay - Final Complete Laboratory Tests Test 05/10/20 05:50 White Blood Count 10.7 K/UL (4.8-10.8) Red Blood Count 5.00 M/UL (4.20-5.40) Hemoglobin 16.4 G/DL (12.0-16.0) H Hematocrit 51.5 % (37.0-47.0) H Mean Corpuscular Volume 103 FL (80-99) H Mean Corpuscular Hemoglobin 32.8 PG (27.0-31.0) H Mean Corpuscular Hemoglobin Concent 31.8 G/DL (32.0-36.0) L Red Cell Distribution Width 13.6 % (11.6-14.8) Platelet Count 260 K/UL (150-450) Mean Platelet Volume 7.2 FL (6.5-10.1) Neutrophils (%) (Auto) 68.5 % (45.0-75.0) Lymphocytes (%) (Auto) 23.1 % (20.0-45.0) Monocytes (%) (Auto) 7.4 % (1.0-10.0) Eosinophils (%) (Auto) 0.6 % (0.0-3.0) Basophils (%) (Auto) 0.3 % (0.0-2.0) Sodium Level 142 MMOL/L (136-145) Potassium Level 4.3 MMOL/L (3.5-5.1) Chloride Level 105 MMOL/L (98-107) Carbon Dioxide Level 26 MMOL/L (21-32) Anion Gap 11 mmol/L (5-15) Blood Urea Nitrogen 24 mg/dL (7-18) H Creatinine 1.2 MG/DL (0.55-1.30) Estimat Glomerular Filtration Rate 42.8 mL/min (>60) Glucose Level 95 MG/DL (74-106) Calcium Level 9.7 MG/DL (8.5-10.1) Current Medications Medications (Trade) Dose Ordered Sig/Trina Route PRN Reason Start Time Stop Time Status Last Admin Dose Admin Acetaminophen (Tylenol) 650 mg Q4H PRN ORAL Temp >100.5 05/06/20 00:15 06/05/20 00:14 Albuterol Sulfate (Proventil MDI) 2 puff Q4H PRN INH Shortness of Breath 05/06/20 12:00 08/04/20 11:59 Cefuroxime Axetil (Ceftin) 250 mg EVERY 12 HOURS ORAL 05/07/20 13:30 05/14/20 13:29 05/10/20 09:10 Dextrose/Sodium Chloride 1,000 ml @ 50 mls/hr Q20H IV 05/06/20 10:45 06/05/20 10:44 05/06/20 11:24 Diphenhydramine HCl (Benadryl) 25 mg Q6H PRN ORAL Itching 05/06/20 00:15 06/05/20 00:14 Divalproex Sodium (Depakote Sprinkles) 125 mg DAILY ORAL 05/06/20 09:00 06/05/20 08:59 05/10/20 09:10 Heparin Sodium (Porcine) (Heparin 5000 units/ml) 5,000 units EVERY 12 HOURS SUBQ 05/06/20 09:00 06/20/20 08:59 05/10/20 09:12 Lisinopril (PriniviL) 40 mg DAILY ORAL 05/06/20 09:00 06/05/20 08:59 05/10/20 09:10 Ondansetron HCl (Zofran) 4 mg Q6H PRN IVP Nausea & Vomiting 05/06/20 00:15 06/05/20 00:14 Wale Schofield MD May 10, 2020 14:13
--- NOTE | 2020-05-10 14:27 | Diagnostic Imaging Report ---
Indication: Shortness of breath Technique: One view of the chest Comparison: 05/05/2020 Findings: Lungs and pleural spaces are clear. Heart size is normal. No significant change Impression: No acute process
[2020-05-10] MEDS: D5 1/2NS 1,000 ML IV SCH (14:45)
[2020-05-10 16:00] VITALS: BP 115/52
--- NOTE | 2020-05-10 18:13 | Surgery Progress Note ---
Surgery Progress Note Subjective Additional Comments no acute events Objective Last 24 Hour Vital Signs Date Time Temp Pulse Resp B/P (MAP) Pulse Ox O2 Delivery O2 Flow Rate FiO2 05/10/20 16:00 97.9 93 19 115/52 (73) 94 05/10/20 12:00 97.8 85 18 135/82 (99) 96 05/10/20 10:00 Room Air 05/10/20 09:10 126/68 05/10/20 08:00 97.9 85 19 126/68 (87) 98 05/10/20 04:00 98.6 65 18 141/72 (95) 93 05/10/20 00:00 97.9 106 19 104/49 (67) 93 05/09/20 21:00 Room Air 05/09/20 20:00 20 97 I&O Intake and Output 05/09/20 05/10/20 19:00 07:00 Intake Total 140 ml 118 ml Balance 140 ml 118 ml Intake Oral 140 ml Other 118 ml # Voids 1 2 Dressing: dry Cardiovascular: RSR Respiratory: clear, decreased breath sounds Abdomen: non-tender, present bowel sounds Extremities: no tenderness, no cyanosis Laboratory Tests Test 05/10/20 05:50 White Blood Count 10.7 K/UL (4.8-10.8) Red Blood Count 5.00 M/UL (4.20-5.40) Hemoglobin 16.4 G/DL (12.0-16.0) H Hematocrit 51.5 % (37.0-47.0) H Mean Corpuscular Volume 103 FL (80-99) H Mean Corpuscular Hemoglobin 32.8 PG (27.0-31.0) H Mean Corpuscular Hemoglobin Concent 31.8 G/DL (32.0-36.0) L Red Cell Distribution Width 13.6 % (11.6-14.8) Platelet Count 260 K/UL (150-450) Mean Platelet Volume 7.2 FL (6.5-10.1) Neutrophils (%) (Auto) 68.5 % (45.0-75.0) Lymphocytes (%) (Auto) 23.1 % (20.0-45.0) Monocytes (%) (Auto) 7.4 % (1.0-10.0) Eosinophils (%) (Auto) 0.6 % (0.0-3.0) Basophils (%) (Auto) 0.3 % (0.0-2.0) Sodium Level 142 MMOL/L (136-145) Potassium Level 4.3 MMOL/L (3.5-5.1) Chloride Level 105 MMOL/L (98-107) Carbon Dioxide Level 26 MMOL/L (21-32) Anion Gap 11 mmol/L (5-15) Blood Urea Nitrogen 24 mg/dL (7-18) H Creatinine 1.2 MG/DL (0.55-1.30) Estimat Glomerular Filtration Rate 42.8 mL/min (>60) Glucose Level 95 MG/DL (74-106) Calcium Level 9.7 MG/DL (8.5-10.1) Plan Problems: (1) Incontinence associated dermatitis Assessment & Plan: Patient identified admission to have incontinence associated and tightness around the sacral region. There is skin breakdown in the sacral cleft as well as the bilateral buttock and the sacral periwound with mild maceration of the epidermis but no open lesions. Patient is recently having diarrhea and at high risk for further breakdown. BMI of 29 albumin of 3.8 as the patient does have fairly good nutritional status at this time. To ensure that patient does not have further breakdown or opening of the skin will monitor for incontinence/diarrhea and treat accordingly. In the meantime continue with nutritional optimization as well as turning patient every 2 hours offloading pressure with pillows. Wash wounds daily with normal saline apply OPTi foam dressing to the sacral area okay to change every 3 days with skin protectant unless there is incontinence at which time change accordingly. Thank you will follow with recommendations (2) COVID-19 Assessment & Plan: COVID + ID input noted appreciated The cardiac and mediastinal silhouettes are unremarkable. Minor scattered areas of atelectasis in both lung bases. Negative for pneumothorax or pleural fluid collections. Jeramy Rhodes May 10, 2020 18:13
[2020-05-10 20:00] VITALS: BP 156/89
[2020-05-11] VITALS: BP 139/77
[2020-05-11 04:00] VITALS: BP 155/72
[2020-05-11 08:00] VITALS: BP 128/87
[2020-05-11] MEDS: Lisinopril 20mg tab ORAL SCH (09:30)
[2020-05-11] MEDS: Depakote 125mg Sprinkles ORAL SCH (09:30)
[2020-05-11] MEDS: Heparin 5000 units/ml inj SUBQ SCH ×2 (09:31→21:25)
[2020-05-11] MEDS: D5 1/2NS 1,000 ML IV SCH (09:40)
--- NOTE | 2020-05-11 10:02 | Pulmonology Progress Note ---
Subjective Constitutional: Denies: fever Gastrointestinal/Abdominal: Denies: nausea, vomiting, diarrhea Psychiatric: Denies: depression Skin: Denies: rash Musculoskeletal: Denies: pain Allergies: Coded Allergies: No Known Allergies (Unverified , 05/05/20) Subjective pulse ox stable on RA remains afebrile, no signs of resp distress responsive, but v demented repeated COVID 19 x2 NGT BCX + Staph hominis, off Zyvox Objective Last 24 Hour Vital Signs Date Time Temp Pulse Resp B/P (MAP) Pulse Ox O2 Delivery O2 Flow Rate FiO2 05/11/20 09:30 128/87 05/11/20 08:00 97.3 85 18 128/87 (101) 99 05/11/20 04:00 98.9 87 18 155/72 (99) 95 05/11/20 00:00 98.7 81 18 139/77 (97) 96 05/10/20 21:00 Room Air 05/10/20 20:00 98.3 75 18 156/89 (111) 98 05/10/20 16:00 97.9 93 19 115/52 (73) 94 05/10/20 12:00 97.8 85 18 135/82 (99) 96 Intake and Output 05/10/20 05/11/20 19:00 07:00 Intake Total 150 ml 180 ml Balance 150 ml 180 ml Intake Oral 150 ml 180 ml # Voids 2 2 # Bowel Movements 1 Objective General Appearance: no apparent distress, awake, demented, calm Lines, tubes and drains: peripheral HEENT: normocephalic, atraumatic, anicteric, mucous membranes moist Neck: non-tender, supple Respiratory/Chest: chest wall non-tender, lungs clear, no respiratory distress, no accessory muscle use Cardiovascular/Chest: normal rate Abdomen: normal bowel sounds, non tender, soft Genitourinary/Rectal: no CVAT Extremities: no calf tenderness, normal capillary refill, no edema Neurologic: alert , confused , no gross focal Musculoskeletal: atrophy Microbiology Date/Time Source Procedure Growth Status 05/09/20 16:58 Nasopharynx SARS-CoV-2 RdRp Gene Assay - Final Complete 05/08/20 12:30 Nasopharynx SARS-CoV-2 RdRp Gene Assay - Final Complete Current Medications Medications (Trade) Dose Ordered Sig/Trina Route PRN Reason Start Time Stop Time Status Last Admin Dose Admin Acetaminophen (Tylenol) 650 mg Q4H PRN ORAL Temp >100.5 05/06/20 00:15 06/05/20 00:14 Albuterol Sulfate (Proventil MDI) 2 puff Q4H PRN INH Shortness of Breath 05/06/20 12:00 08/04/20 11:59 Cefuroxime Axetil (Ceftin) 250 mg EVERY 12 HOURS ORAL 05/07/20 13:30 05/14/20 13:29 05/11/20 09:29 Dextrose/Sodium Chloride 1,000 ml @ 50 mls/hr Q20H IV 05/06/20 10:45 06/05/20 10:44 05/06/20 11:24 Diphenhydramine HCl (Benadryl) 25 mg Q6H PRN ORAL Itching 05/06/20 00:15 06/05/20 00:14 Divalproex Sodium (Depakote Sprinkles) 125 mg DAILY ORAL 05/06/20 09:00 06/05/20 08:59 05/11/20 09:30 Heparin Sodium (Porcine) (Heparin 5000 units/ml) 5,000 units EVERY 12 HOURS SUBQ 05/06/20 09:00 06/20/20 08:59 05/11/20 09:31 Lisinopril (PriniviL) 40 mg DAILY ORAL 05/06/20 09:00 06/05/20 08:59 05/11/20 09:30 Ondansetron HCl (Zofran) 4 mg Q6H PRN IVP Nausea & Vomiting 05/06/20 00:15 06/05/20 00:14 Assessment/Plan Assessment/Plan ASSESSMENT COVID 19 infection Complicated UTI with diarrhea and generalized weakness GP Bacteremia - ? real vs contamination -likely contaminant Hypertension Hyperlipidemia Dementia Mild dehydration Thrombocytopenia - already resolved PLAN OF CARE [facility] floor closely monitor resp status, pulse oximetry remains stable on RA; CXR no acute CP pathology hold off on steroids and abx for PNA, Remdesivivr not indicated in this case ID follows CRP NGT, D dimer 2.3, LDH -219 and ferritin 235; both stable IL6 still pending follow up CXR 05/10 - no acute CP pathology Albuterol via MDI prn DVT prophylaxis Venous Duplex BLE UA c/w with probable UTI UCX + E coli , on Ceftin since refused IV access BCX with Staph hominis likely contaminant, off Zyvox repeated rapid COVID 19 05/08 and 05/09 both NGT gentle IV hydration -dc upon discharge monitor volumes, renal parameters, lytes BP management with ANJALI BSSE aspiration precautions DNR/DNI status dc to assisted living vs SNF today no need for isolation : two consecutive COVID 19 negative need 2 more days of oral Ceftin for UTI case discussed and evaluated by supervising physician Liseth Miranda NP May 11, 2020 10:02
[2020-05-11 12:00] VITALS: BP 121/79
--- NOTE | 2020-05-11 14:56 | Surgery Progress Note ---
Surgery Progress Note Subjective Symptoms: improved, tolerating diet, passing flatus Objective Last 24 Hour Vital Signs Date Time Temp Pulse Resp B/P (MAP) Pulse Ox O2 Delivery O2 Flow Rate FiO2 05/11/20 12:00 97.5 85 20 121/79 (93) 99 05/11/20 09:30 128/87 05/11/20 09:00 Room Air 05/11/20 08:00 97.3 85 18 128/87 (101) 99 05/11/20 04:00 98.9 87 18 155/72 (99) 95 05/11/20 00:00 98.7 81 18 139/77 (97) 96 05/10/20 21:00 Room Air 05/10/20 20:00 98.3 75 18 156/89 (111) 98 05/10/20 16:00 97.9 93 19 115/52 (73) 94 I&O Intake and Output 05/10/20 05/11/20 18:59 06:59 Intake Total 150 ml 180 ml Balance 150 ml 180 ml Intake Oral 150 ml 180 ml # Voids 2 2 # Bowel Movements 1 Dressing: saturated Cardiovascular: RSR Respiratory: decreased breath sounds Abdomen: non-tender, present bowel sounds Extremities: no edema, no tenderness, no cyanosis Plan Problems: (1) Incontinence associated dermatitis Assessment & Plan: Patient identified admission to have incontinence associated and tightness around the sacral region. There is skin breakdown in the sacral cleft as well as the bilateral buttock and the sacral periwound with mild maceration of the epidermis but no open lesions. Patient is recently having diarrhea and at high risk for further breakdown. BMI of 29 albumin of 3.8 as the patient does have fairly good nutritional status at this time. To ensure that patient does not have further breakdown or opening of the skin will monitor for incontinence/diarrhea and treat accordingly. In the meantime continue with nutritional optimization as well as turning patient every 2 hours offloading pressure with pillows. Wash wounds daily with normal saline apply OPTi foam dressing to the sacral area okay to change every 3 days with skin protectant unless there is incontinence at which time change accordingly. Thank you will follow with recommendations (2) COVID-19 Assessment & Plan: COVID + ID input noted appreciated The cardiac and mediastinal silhouettes are unremarkable. Minor scattered areas of atelectasis in both lung bases. Negative for pneumothorax or pleural fluid collections. Jeramy Rhodes May 11, 2020 14:56
[2020-05-11 16:00] VITALS: BP 143/61
[2020-05-11 20:00] VITALS: BP 140/83
[2020-05-12] VITALS (7 sets, daily range): BP systolic 127–149; BP diastolic 71–92
[2020-05-12] MEDS: D5 1/2NS 1,000 ML IV SCH (06:45)
--- NOTE | 2020-05-12 08:11 | Pulmonology Progress Note ---
Subjective Constitutional: Denies: fever Gastrointestinal/Abdominal: Denies: nausea, vomiting, diarrhea Psychiatric: Denies: depression Skin: Denies: rash Musculoskeletal: Denies: pain Allergies: Coded Allergies: No Known Allergies (Unverified , 05/05/20) Subjective pulse ox stable on RA remains afebrile, no signs of resp distress responsive, but demented repeated COVID 19 x2 NGT BCX + Staph hominis, off Zyvox order for dc placed yesterday, not discharged due to placement issues Objective Last 24 Hour Vital Signs Date Time Temp Pulse Resp B/P (MAP) Pulse Ox O2 Delivery O2 Flow Rate FiO2 05/12/20 04:00 97.8 82 20 127/71 (89) 96 05/12/20 00:00 98.1 74 18 132/77 (95) 95 05/11/20 21:00 Room Air 05/11/20 20:00 97.5 88 20 140/83 (102) 96 05/11/20 16:00 97.5 82 20 143/61 (88) 96 05/11/20 12:00 97.5 85 20 121/79 (93) 99 05/11/20 09:30 128/87 05/11/20 09:00 Room Air Intake and Output 05/11/20 05/12/20 19:00 07:00 Intake Total 50 ml 30 ml Balance 50 ml 30 ml Intake Oral 50 ml 30 ml # Voids 2 Objective General Appearance: no apparent distress, awake, demented, calm Lines, tubes and drains: peripheral HEENT: normocephalic, atraumatic, anicteric, mucous membranes moist Neck: non-tender, supple Respiratory/Chest: chest wall non-tender, lungs clear, no respiratory distress, no accessory muscle use Cardiovascular/Chest: normal rate Abdomen: normal bowel sounds, non tender, soft Genitourinary/Rectal: no CVAT Extremities: no calf tenderness, normal capillary refill, no edema Neurologic: alert , confused , no gross focal Musculoskeletal: atrophy Microbiology Date/Time Source Procedure Growth Status 05/09/20 16:58 Nasopharynx SARS-CoV-2 RdRp Gene Assay - Final Complete Current Medications Medications (Trade) Dose Ordered Sig/Trina Route PRN Reason Start Time Stop Time Status Last Admin Dose Admin Acetaminophen (Tylenol) 650 mg Q4H PRN ORAL Temp >100.5 05/06/20 00:15 06/05/20 00:14 Albuterol Sulfate (Proventil MDI) 2 puff Q4H PRN INH Shortness of Breath 05/06/20 12:00 08/04/20 11:59 Cefuroxime Axetil (Ceftin) 250 mg EVERY 12 HOURS ORAL 05/07/20 13:30 05/14/20 13:29 05/11/20 21:24 Dextrose/Sodium Chloride 1,000 ml @ 50 mls/hr Q20H IV 05/06/20 10:45 06/05/20 10:44 05/06/20 11:24 Diphenhydramine HCl (Benadryl) 25 mg Q6H PRN ORAL Itching 05/06/20 00:15 06/05/20 00:14 Divalproex Sodium (Depakote Sprinkles) 125 mg DAILY ORAL 05/06/20 09:00 06/05/20 08:59 05/11/20 09:30 Heparin Sodium (Porcine) (Heparin 5000 units/ml) 5,000 units EVERY 12 HOURS SUBQ 05/06/20 09:00 06/20/20 08:59 05/11/20 21:25 Lisinopril (PriniviL) 40 mg DAILY ORAL 05/06/20 09:00 06/05/20 08:59 05/11/20 09:30 Ondansetron HCl (Zofran) 4 mg Q6H PRN IVP Nausea & Vomiting 05/06/20 00:15 06/05/20 00:14 Assessment/Plan Assessment/Plan ASSESSMENT COVID 19 infection Complicated UTI with diarrhea and generalized weakness GP Bacteremia - ? real vs contamination -likely contaminant Hypertension Hyperlipidemia Dementia Mild dehydration Thrombocytopenia - already resolved [facility] floor closely monitor resp status, pulse oximetry remains stable on RA; CXR no acute CP pathology hold off on steroids and abx for PNA, Remdesivivr not indicated in this case ID follows CRP NGT, D dimer 2.3, LDH -219 and ferritin 235; both stable IL6 still pending follow up CXR 05/10 - no acute CP pathology Albuterol via MDI prn DVT prophylaxis Venous Duplex BLE UA c/w with probable UTI UCX + E coli , on Ceftin since refused IV access BCX with Staph hominis likely contaminant, off Zyvox repeated rapid COVID 19 05/08 and 05/09 both NGT gentle IV hydration -dc upon discharge monitor volumes, renal parameters, lytes BP management with ANJALI BSSE aspiration precautions DNR/DNI status dc to assisted living vs SNF today ( not dc 05/11 as ordered) no need for isolation : two consecutive COVID 19 negative need 1 more days of oral Ceftin for UTI case discussed and evaluated by supervising physician Liseth Miranda NP May 12, 2020 08:11
[2020-05-12] MEDS: Depakote 125mg Sprinkles ORAL SCH (10:06)
[2020-05-12] MEDS: Lisinopril 20mg tab ORAL SCH (10:07)
[2020-05-12] MEDS: Heparin 5000 units/ml inj SUBQ SCH ×2 (10:08→20:29)
--- NOTE | 2020-05-12 14:54 | Surgery Progress Note ---
Surgery Progress Note Subjective Additional Comments oj cute events labs noted micro reviewed comfortable Objective Last 24 Hour Vital Signs Date Time Temp Pulse Resp B/P (MAP) Pulse Ox O2 Delivery O2 Flow Rate FiO2 05/12/20 10:07 149/86 05/12/20 08:11 Room Air 05/12/20 08:00 98.4 89 19 149/86 (107) 97 05/12/20 04:00 97.8 82 20 127/71 (89) 96 05/12/20 00:00 98.1 74 18 132/77 (95) 95 05/11/20 21:00 Room Air 05/11/20 20:00 97.5 88 20 140/83 (102) 96 05/11/20 16:00 97.5 82 20 143/61 (88) 96 I&O Intake and Output 05/11/20 05/12/20 19:00 07:00 Intake Total 50 ml 30 ml Balance 50 ml 30 ml Intake Oral 50 ml 30 ml # Voids 2 Dressing: saturated Cardiovascular: RSR Respiratory: decreased breath sounds Abdomen: non-tender, present bowel sounds Extremities: no edema, no tenderness, no cyanosis Plan Problems: (1) Incontinence associated dermatitis Assessment & Plan: Patient identified admission to have incontinence associated and tightness around the sacral region. There is skin breakdown in the sacral cleft as well as the bilateral buttock and the sacral periwound with mild maceration of the epidermis but no open lesions. Patient is recently having diarrhea and at high risk for further breakdown. BMI of 29 albumin of 3.8 as the patient does have fairly good nutritional status at this time. To ensure that patient does not have further breakdown or opening of the skin will monitor for incontinence/diarrhea and treat accordingly. In the meantime continue with nutritional optimization as well as turning patient every 2 hours offloading pressure with pillows. Wash wounds daily with normal saline apply OPTi foam dressing to the sacral area okay to change every 3 days with skin protectant unless there is incontinence at which time change accordingly. Thank you will follow with recommendations (2) COVID-19 Assessment & Plan: COVID + ID input noted appreciated The cardiac and mediastinal silhouettes are unremarkable. Minor scattered areas of atelectasis in both lung bases. Negative for pneumothorax or pleural fluid collections. Jeramy Rhodes May 12, 2020 14:53
--- NOTE | 2020-05-12 16:38 | Infectious Diseases Prog Note ---
Assessment/Plan Assessment/Plan ASSESSMENT AND PLAN: 1. 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 COVID-19 infection. Continue isolation. There is no indication for remdesivir or dexamethasone at this time. Saturation is 96% on room air without any respiratory symptoms - f/u rapid test neg x 2, consider discontinue isolation 3. Patient has history of hypertension. 4. Dementia. 5. Blood pressure treatment per primary care team. 6. Dyslipidemia. 7. Thrombocytopenia. 8. Dehydration. 9. IV fluids. 10. Continue treatment per primary consultants. 11. No known drug allergies. 12. Social history is negative. 13. Family history is noncontributory. 14. MAR is noted. 15. Case was discussed with RN. Subjective Constitutional: Reports: fatigue; Denies: fever HEENT: Denies: congestion Respiratory: Denies: shortness of breath, productive cough Cardiovascular: Denies: chest pain Gastrointestinal/Abdominal: Denies: nausea, vomiting, diarrhea Genitourinary: Denies: dysuria, hematuria, frequency Neurologic: Denies: headache, weakness Skin: Denies: rash Hematologic: Denies: bleeding Allergies: Coded Allergies: No Known Allergies (Unverified , 05/05/20) Objective Last 24 Hour Vital Signs Date Time Temp Pulse Resp B/P (MAP) Pulse Ox O2 Delivery O2 Flow Rate FiO2 05/12/20 16:00 97.4 81 19 134/76 (95) 98 05/12/20 12:00 97.9 81 19 137/81 (99) 98 05/12/20 10:07 149/86 05/12/20 08:11 Room Air 05/12/20 08:00 98.4 89 19 149/86 (107) 97 05/12/20 04:00 97.8 82 20 127/71 (89) 96 05/12/20 00:00 98.1 74 18 132/77 (95) 95 05/11/20 21:00 Room Air 05/11/20 20:00 97.5 88 20 140/83 (102) 96 Height (Feet): 5 Height (Inches): 5.00 Weight (Pounds): 175 General Appearance: no acute distress HEENT: normocephalic, atraumatic, anicteric, mucous membranes moist Respiratory/Chest: lungs clear, normal breath sounds, no respiratory distress, no accessory muscle use Cardiovascular: normal rate, regular rhythm, no gallop/murmur, no JVD Abdomen: normal bowel sounds, soft, non tender, no organomegaly, non distended Genitourinary: other - no paredes Extremities: no cyanosis Skin: no rash Neurologic/Psychiatric: controls technician II-XII 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 COMPARISON: No relevant prior studies available. FINDINGS: The cardiac and mediastinal silhouettes are unremarkable. Minor scattered areas of atelectasis in both lung bases. Negative for pneumothorax or pleural fluid collections. Chest x-ray - 05/10/20 - Procedure: XRAY Chest 1v Indication: Shortness of breath Technique: One view of the chest Comparison: 05/05/2020 Findings: Lungs and pleural spaces are clear. Heart size is normal. No significant change Impression: No acute process Microbiology Date/Time Source Procedure Growth Status 05/09/20 16:58 Nasopharynx SARS-CoV-2 RdRp Gene Assay - Final Complete 05/05/20 21:30 Urine,Clean Catch Urine Culture - Final Escherichia Coli Complete 05/05/20 21:30 Blood Blood Culture - Final NO GROWTH AFTER 5 DAYS Complete 05/05/20 20:30 Rectum - Final NO CARBAPENEM-RESISTANT ENTEROBACTERI... Complete Microbiology Date/Time Source Procedure Growth Status 05/09/20 16:58 Nasopharynx SARS-CoV-2 RdRp Gene Assay - Final Complete Labs Test 05/10/20 05:50 White Blood Count 10.7 K/UL (4.8-10.8) Red Blood Count 5.00 M/UL (4.20-5.40) Hemoglobin 16.4 G/DL (12.0-16.0) Hematocrit 51.5 % (37.0-47.0) Mean Corpuscular Volume 103 FL (80-99) Mean Corpuscular Hemoglobin 32.8 PG (27.0-31.0) Mean Corpuscular Hemoglobin Concent 31.8 G/DL (32.0-36.0) Red Cell Distribution Width 13.6 % (11.6-14.8) Platelet Count 260 K/UL (150-450) Mean Platelet Volume 7.2 FL (6.5-10.1) Neutrophils (%) (Auto) 68.5 % (45.0-75.0) Lymphocytes (%) (Auto) 23.1 % (20.0-45.0) Monocytes (%) (Auto) 7.4 % (1.0-10.0) Eosinophils (%) (Auto) 0.6 % (0.0-3.0) Basophils (%) (Auto) 0.3 % (0.0-2.0) Sodium Level 142 MMOL/L (136-145) Potassium Level 4.3 MMOL/L (3.5-5.1) Chloride Level 105 MMOL/L (98-107) Carbon Dioxide Level 26 MMOL/L (21-32) Anion Gap 11 mmol/L (5-15) Blood Urea Nitrogen 24 mg/dL (7-18) Creatinine 1.2 MG/DL (0.55-1.30) Estimat Glomerular Filtration Rate 42.8 mL/min (>60) Glucose Level 95 MG/DL (74-106) Calcium Level 9.7 MG/DL (8.5-10.1) Current Medications Medications (Trade) Dose Ordered Sig/Trina Route PRN Reason Start Time Stop Time Status Last Admin Dose Admin Acetaminophen (Tylenol) 650 mg Q4H PRN ORAL Temp >100.5 05/06/20 00:15 06/05/20 00:14 Albuterol Sulfate (Proventil MDI) 2 puff Q4H PRN INH Shortness of Breath 05/06/20 12:00 08/04/20 11:59 Cefuroxime Axetil (Ceftin) 250 mg EVERY 12 HOURS ORAL 05/07/20 13:30 05/14/20 13:29 05/12/20 10:06 Dextrose/Sodium Chloride 1,000 ml @ 50 mls/hr Q20H IV 05/06/20 10:45 06/05/20 10:44 05/06/20 11:24 Diphenhydramine HCl (Benadryl) 25 mg Q6H PRN ORAL Itching 05/06/20 00:15 06/05/20 00:14 Divalproex Sodium (Depakote Sprinkles) 125 mg DAILY ORAL 05/06/20 09:00 06/05/20 08:59 05/12/20 10:06 Heparin Sodium (Porcine) (Heparin 5000 units/ml) 5,000 units EVERY 12 HOURS SUBQ 05/06/20 09:00 06/20/20 08:59 05/12/20 10:08 Lisinopril (PriniviL) 40 mg DAILY ORAL 05/06/20 09:00 06/05/20 08:59 05/12/20 10:07 Ondansetron HCl (Zofran) 4 mg Q6H PRN IVP Nausea & Vomiting 05/06/20 00:15 06/05/20 00:14 Wale Schofield MD May 12, 2020 16:38
[2020-05-13] VITALS: BP 127/69
[2020-05-13] MEDS: D5 1/2NS 1,000 ML IV SCH ×2 (02:45→23:09)
[2020-05-13 04:00] VITALS: BP 139/64
[2020-05-13 08:00] VITALS: BP 151/96
--- NOTE | 2020-05-13 08:09 | Pulmonology Progress Note ---
Subjective Constitutional: Reports: fatigue; Denies: fever Gastrointestinal/Abdominal: Denies: nausea, vomiting, diarrhea Psychiatric: Denies: depression Skin: Denies: rash Musculoskeletal: Denies: pain Allergies: Coded Allergies: No Known Allergies (Unverified , 05/05/20) Subjective pulse ox stable on RA remains afebrile, no signs of resp distress responsive, but demented repeated COVID 19 x2 NGT BCX + Staph hominis, contaminant -> off Zyvox order for dc placed 05/11 and 05/12 not dc tequila to placement issues Objective Last 24 Hour Vital Signs Date Time Temp Pulse Resp B/P (MAP) Pulse Ox O2 Delivery O2 Flow Rate FiO2 05/13/20 04:00 98.6 94 20 139/64 (89) 95 05/13/20 00:00 98.2 84 18 127/69 (88) 95 05/12/20 22:00 98.6 86 20 138/92 (107) 95 05/12/20 21:00 Room Air 05/12/20 20:00 97.4 81 19 134/76 (95) 98 05/12/20 16:00 97.4 81 19 134/76 (95) 98 05/12/20 12:00 97.9 81 19 137/81 (99) 98 05/12/20 10:07 149/86 05/12/20 08:11 Room Air Intake and Output 05/12/20 05/13/20 19:00 07:00 Intake Total 200 ml 0 ml Balance 200 ml 0 ml Intake Oral 0 ml Other 200 ml # Voids 2 Objective General Appearance: no apparent distress, awake, demented, calm Lines, tubes and drains: peripheral HEENT: normocephalic, atraumatic, anicteric, mucous membranes moist Neck: non-tender, supple Respiratory/Chest: chest wall non-tender, lungs clear, no respiratory distress, no accessory muscle use Cardiovascular/Chest: normal rate Abdomen: normal bowel sounds, non tender, soft Genitourinary/Rectal: no CVAT Extremities: no calf tenderness, normal capillary refill, no edema Neurologic: alert , confused , no gross focal Musculoskeletal: atrophy Current Medications Medications (Trade) Dose Ordered Sig/Trina Route PRN Reason Start Time Stop Time Status Last Admin Dose Admin Acetaminophen (Tylenol) 650 mg Q4H PRN ORAL Temp >100.5 05/06/20 00:15 06/05/20 00:14 Albuterol Sulfate (Proventil MDI) 2 puff Q4H PRN INH Shortness of Breath 05/06/20 12:00 08/04/20 11:59 Dextrose/Sodium Chloride 1,000 ml @ 50 mls/hr Q20H IV 05/06/20 10:45 06/05/20 10:44 05/06/20 11:24 Diphenhydramine HCl (Benadryl) 25 mg Q6H PRN ORAL Itching 05/06/20 00:15 06/05/20 00:14 Divalproex Sodium (Depakote Sprinkles) 125 mg DAILY ORAL 05/06/20 09:00 06/05/20 08:59 05/12/20 10:06 Heparin Sodium (Porcine) (Heparin 5000 units/ml) 5,000 units EVERY 12 HOURS SUBQ 05/06/20 09:00 06/20/20 08:59 05/12/20 20:29 Lisinopril (PriniviL) 40 mg DAILY ORAL 05/06/20 09:00 06/05/20 08:59 05/12/20 10:07 Ondansetron HCl (Zofran) 4 mg Q6H PRN IVP Nausea & Vomiting 05/06/20 00:15 06/05/20 00:14 Assessment/Plan Assessment/Plan ASSESSMENT COVID 19 infection Complicated UTI with diarrhea and generalized weakness GP Bacteremia - ? real vs contamination -likely contaminant Hypertension Hyperlipidemia Dementia Mild dehydration Thrombocytopenia - already resolved [facility] OF CARE [facility] floor closely monitor resp status, pulse oximetry remains stable on RA; CXR no acute CP pathology hold off on steroids and abx for PNA, Remdesivivr not indicated in this case ID follows CRP NGT, D dimer 2.3, LDH -219 and ferritin 235; both stable IL6 still pending follow up CXR 05/10 - no acute CP pathology Albuterol via MDI prn DVT prophylaxis Venous Duplex BLE UA c/w with probable UTI UCX + E coli , completed Ceftin BCX with Staph hominis likely contaminant, off Zyvox repeated rapid COVID 19 05/08 and 05/09 both NGT gentle IV hydration -dc upon discharge monitor volumes, renal parameters, lytes BP management with ANJALI BSSE aspiration precautions DNR/DNI status dc to assisted living vs SNF today ( not dc 05/11 as ordered) no need for isolation : two consecutive COVID 19 negative per CM : assisted living not accepted until 05/21 ( despite two NGT COVID) needs to go for a short term SNF spoke with nurse to relay message to CM, dc order in place case discussed and evaluated by supervising physician Liseth Miranda NP May 13, 2020 08:09
[2020-05-13] MEDS: Depakote 125mg Sprinkles ORAL SCH (08:27)
[2020-05-13] MEDS: Lisinopril 20mg tab ORAL SCH (08:27)
[2020-05-13] MEDS: Heparin 5000 units/ml inj SUBQ SCH ×2 (08:30→21:10)
[2020-05-13 08:32] LABS: BASOPHILS % (AUTO) 0.4 % (0.0-2.0); EOSINOPHILS % (AUTO) 1.6 % (0.0-3.0); HEMATOCRIT 47.5 % (37.0-47.0); HEMOGLOBIN 14.8 G/DL (12.0-16.0); LYMPHOCYTES % (AUTO) 27.6 % (20.0-45.0); MEAN CORPUSCULAR VOLUME 105 FL (80-99); MONOCYTES % (AUTO) 7.7 % (1.0-10.0); NEUTROPHILS % (AUTO) 62.6 % (45.0-75.0); PLATELET COUNT 283 K/UL (150-450); RED BLOOD COUNT 4.54 M/UL (4.20-5.40); RED CELL DISTRIBUTION WIDTH 13.9 % (11.6-14.8); WHITE BLOOD COUNT 8.1 K/UL (4.8-10.8)
[2020-05-13 08:50] LABS: ALBUMIN 3.5 G/DL (3.4-5.0); ALBUMIN/GLOBULIN RATIO 0.8 (1.0-2.7); BILIRUBIN,TOTAL 0.4 MG/DL (0.2-1.0); CALCIUM 9.3 MG/DL (8.5-10.1)
[2020-05-13 12:02] VITALS: BP 138/84
[2020-05-13 16:00] VITALS: BP 150/78
--- NOTE | 2020-05-13 17:18 | Surgery Progress Note ---
Surgery Progress Note Subjective Additional Comments no acute events Objective Last 24 Hour Vital Signs Date Time Temp Pulse Resp B/P (MAP) Pulse Ox O2 Delivery O2 Flow Rate FiO2 05/13/20 16:00 97.9 93 19 150/78 (102) 97 05/13/20 12:02 97.3 90 19 138/84 (102) 96 05/13/20 09:00 Room Air 05/13/20 08:27 151/96 05/13/20 08:00 97.2 92 19 151/96 (114) 97 05/13/20 04:00 98.6 94 20 139/64 (89) 95 05/13/20 00:00 98.2 84 18 127/69 (88) 95 05/12/20 22:00 98.6 86 20 138/92 (107) 95 05/12/20 21:00 Room Air 05/12/20 20:00 97.4 81 19 134/76 (95) 98 I&O Intake and Output 05/12/20 05/13/20 19:00 07:00 Intake Total 200 ml 0 ml Balance 200 ml 0 ml Intake Oral 0 ml Other 200 ml # Voids 2 Dressing: saturated Cardiovascular: RSR Respiratory: decreased breath sounds Abdomen: non-tender, present bowel sounds Extremities: no edema, no tenderness, no cyanosis Laboratory Tests Test 05/13/20 06:20 White Blood Count 8.1 K/UL (4.8-10.8) Red Blood Count 4.54 M/UL (4.20-5.40) Hemoglobin 14.8 G/DL (12.0-16.0) Hematocrit 47.5 % (37.0-47.0) H Mean Corpuscular Volume 105 FL (80-99) H Mean Corpuscular Hemoglobin 32.5 PG (27.0-31.0) H Mean Corpuscular Hemoglobin Concent 31.1 G/DL (32.0-36.0) L Red Cell Distribution Width 13.9 % (11.6-14.8) Platelet Count 283 K/UL (150-450) Mean Platelet Volume 7.1 FL (6.5-10.1) Neutrophils (%) (Auto) 62.6 % (45.0-75.0) Lymphocytes (%) (Auto) 27.6 % (20.0-45.0) Monocytes (%) (Auto) 7.7 % (1.0-10.0) Eosinophils (%) (Auto) 1.6 % (0.0-3.0) Basophils (%) (Auto) 0.4 % (0.0-2.0) Sodium Level 146 MMOL/L (136-145) H Potassium Level 4.0 MMOL/L (3.5-5.1) Chloride Level 110 MMOL/L (98-107) H Carbon Dioxide Level 25 MMOL/L (21-32) Anion Gap 11 mmol/L (5-15) Blood Urea Nitrogen 35 mg/dL (7-18) H Creatinine 1.0 MG/DL (0.55-1.30) Estimat Glomerular Filtration Rate 52.8 mL/min (>60) Glucose Level 91 MG/DL (74-106) Calcium Level 9.3 MG/DL (8.5-10.1) Total Bilirubin 0.4 MG/DL (0.2-1.0) Aspartate Amino Transf (AST/SGOT) 61 U/L (15-37) H Alanine Aminotransferase (ALT/SGPT) 58 U/L (12-78) Alkaline Phosphatase 35 U/L (46-116) L Total Protein 7.8 G/DL (6.4-8.2) Albumin 3.5 G/DL (3.4-5.0) Globulin 4.3 g/dL Albumin/Globulin Ratio 0.8 (1.0-2.7) L Plan Problems: (1) Incontinence associated dermatitis Assessment & Plan: Patient identified admission to have incontinence associated and tightness around the sacral region. There is skin breakdown in the sacral cleft as well as the bilateral buttock and the sacral periwound with mild maceration of the epidermis but no open lesions. Patient is recently having diarrhea and at high risk for further breakdown. BMI of 29 albumin of 3.8 as the patient does have fairly good nutritional status at this time. To ensure that patient does not have further breakdown or opening of the skin will monitor for incontinence/diarrhea and treat accordingly. In the meantime continue with nutritional optimization as well as turning patient every 2 hours offloading pressure with pillows. Wash wounds daily with normal saline apply OPTi foam dressing to the sacral area okay to change every 3 days with skin protectant unless there is incontinence at which time change accordingly. Thank you will follow with recommendations (2) COVID-19 Assessment & Plan: COVID + ID input noted appreciated The cardiac and mediastinal silhouettes are unremarkable. Minor scattered areas of atelectasis in both lung bases. Negative for pneumothorax or pleural fluid collections. Jeramy Rhodes May 13, 2020 17:18
[2020-05-13 20:00] VITALS: BP 142/78
[2020-05-14] VITALS: BP 133/75
[2020-05-14 04:00] VITALS: BP 121/72
[2020-05-14 08:00] VITALS: BP 156/97
[2020-05-14] MEDS: Lisinopril 20mg tab ORAL SCH (08:34)
[2020-05-14] MEDS: Depakote 125mg Sprinkles ORAL SCH (08:34)
[2020-05-14] MEDS: Heparin 5000 units/ml inj SUBQ SCH ×2 (08:40→20:23)
--- NOTE | 2020-05-14 10:02 | Pulmonology Progress Note ---
Subjective Constitutional: Reports: fatigue; Denies: fever Gastrointestinal/Abdominal: Denies: nausea, vomiting, diarrhea Psychiatric: Denies: depression Skin: Denies: rash Musculoskeletal: Denies: pain Allergies: Coded Allergies: No Known Allergies (Unverified , 05/05/20) Subjective pulse ox stable on RA remains afebrile, no signs of resp distress repeated COVID 19 x2 NGT BCX + Staph hominis, contaminant -> off Zyvox order for dc placed 05/11 and 05/12 not dc due to placement issues dc plan ongoing Objective Last 24 Hour Vital Signs Date Time Temp Pulse Resp B/P (MAP) Pulse Ox O2 Delivery O2 Flow Rate FiO2 05/14/20 08:34 156/97 05/14/20 08:00 97.3 71 19 156/97 (116) 99 05/14/20 04:00 98.6 85 18 121/72 (88) 96 05/14/20 00:00 97.2 73 19 133/75 (94) 97 05/13/20 21:00 Room Air 05/13/20 20:00 98.0 78 18 142/78 (99) 98 05/13/20 16:00 97.9 93 19 150/78 (102) 97 05/13/20 12:02 97.3 90 19 138/84 (102) 96 Intake and Output 05/13/20 05/14/20 19:00 07:00 Intake Total 250 ml 400 ml Balance 250 ml 400 ml IV Total 250 ml 400 ml # Voids 1 2 Objective General Appearance: no apparent distress, awake, demented, calm Lines, tubes and drains: peripheral HEENT: normocephalic, atraumatic, anicteric, mucous membranes moist Neck: non-tender, supple Respiratory/Chest: chest wall non-tender, lungs clear, no respiratory distress, no accessory muscle use Cardiovascular/Chest: normal rate Abdomen: normal bowel sounds, non tender, soft Genitourinary/Rectal: no CVAT Extremities: no calf tenderness, normal capillary refill, no edema Neurologic: alert , confused , no gross focal Musculoskeletal: atrophy Current Medications Medications (Trade) Dose Ordered Sig/Trina Route PRN Reason Start Time Stop Time Status Last Admin Dose Admin Acetaminophen (Tylenol) 650 mg Q4H PRN ORAL Temp >100.5 05/06/20 00:15 06/05/20 00:14 Albuterol Sulfate (Proventil MDI) 2 puff Q4H PRN INH Shortness of Breath 05/06/20 12:00 08/04/20 11:59 Dextrose/Sodium Chloride 1,000 ml @ 50 mls/hr Q20H IV 05/06/20 10:45 05/14/20 12:00 05/13/20 23:09 Diphenhydramine HCl (Benadryl) 25 mg Q6H PRN ORAL Itching 05/06/20 00:15 06/05/20 00:14 Divalproex Sodium (Depakote Sprinkles) 125 mg DAILY ORAL 05/06/20 09:00 06/05/20 08:59 05/14/20 08:34 Heparin Sodium (Porcine) (Heparin 5000 units/ml) 5,000 units EVERY 12 HOURS SUBQ 05/06/20 09:00 06/20/20 08:59 05/14/20 08:40 Lisinopril (PriniviL) 40 mg DAILY ORAL 05/06/20 09:00 06/05/20 08:59 05/14/20 08:34 Ondansetron HCl (Zofran) 4 mg Q6H PRN IVP Nausea & Vomiting 05/06/20 00:15 06/05/20 00:14 Assessment/Plan Assessment/Plan ASSESSMENT COVID 19 infection Complicated UTI with diarrhea and generalized weakness GP Bacteremia - ? real vs contamination -likely contaminant Hypertension Hyperlipidemia Dementia Mild dehydration Thrombocytopenia - already resolved [facility]AN OF CARE [facility] floor closely monitor resp status, pulse oximetry remains stable on RA; CXR no acute CP pathology hold off on steroids and abx for PNA, Remdesivivr not indicated in this case ID follows CRP NGT, D dimer 2.3, LDH -219 and ferritin 235; both stable IL6 still pending follow up CXR 05/10 - no acute CP pathology Albuterol via MDI prn DVT prophylaxis Venous Duplex BLE UA c/w with probable UTI UCX + E coli , completed Ceftin BCX with Staph hominis likely contaminant, off Zyvox repeated rapid COVID 19 05/08 and 05/09 both NGT gentle IV hydration -dc upon discharge monitor volumes, renal parameters, lytes BP management with ANJALI BSSE aspiration precautions DNR/DNI status dc to assisted living vs SNF ( not dc 05/11 as ordered) no need for isolation : two consecutive COVID 19 negative per CM : assisted living not accepted until 05/21 ( despite two NGT COVID) needs to go for a short term SNF dc order in place, dc plan ongoing case discussed and evaluated by supervising physician Liseth Miranda NP May 14, 2020 10:02 Pradeep Ramos MD May 14, 2020 15:07
[2020-05-14 12:02] VITALS: BP 154/99
[2020-05-14 16:00] VITALS: BP 129/67
--- NOTE | 2020-05-14 19:04 | Infectious Diseases Prog Note ---
Assessment/Plan Assessment/Plan ASSESSMENT AND PLAN: 1. 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 COVID-19 infection. Continue isolation. There is no indication for remdesivir or dexamethasone at this time. Saturation is 96% on room air without any respiratory symptoms - f/u rapid test neg x 2, consider discontinue isolation 3. Patient has history of hypertension. 4. Dementia. 5. Blood pressure treatment per primary care team. 6. Dyslipidemia. 7. Thrombocytopenia. 8. Dehydration. 9. IV fluids. 10. Continue treatment per primary consultants. 11. No known drug allergies. 12. Social history is negative. 13. Family history is noncontributory. 14. MAR is noted. 15. Case was discussed with RN. Subjective Constitutional: Reports: fatigue; Denies: fever Respiratory: Denies: shortness of breath Cardiovascular: Denies: chest pain Gastrointestinal/Abdominal: Denies: nausea, vomiting, diarrhea Genitourinary: Reports: other - no paredes Neurologic: Denies: headache Psychiatric: Denies: depression Skin: Denies: rash Hematologic: Denies: bleeding Musculoskeletal: Denies: pain Allergies: Coded Allergies: No Known Allergies (Unverified , 05/05/20) Objective Last 24 Hour Vital Signs Date Time Temp Pulse Resp B/P (MAP) Pulse Ox O2 Delivery O2 Flow Rate FiO2 05/14/20 16:00 97.2 73 18 129/67 (87) 98 05/14/20 12:02 97.5 78 18 154/99 (117) 100 05/14/20 09:00 Room Air 05/14/20 08:34 156/97 05/14/20 08:00 97.3 71 19 156/97 (116) 99 05/14/20 04:00 98.6 85 18 121/72 (88) 96 05/14/20 00:00 97.2 73 19 133/75 (94) 97 05/13/20 21:00 Room Air 05/13/20 20:00 98.0 78 18 142/78 (99) 98 Height (Feet): 5 Height (Inches): 5.00 Weight (Pounds): 175 General Appearance: no acute distress HEENT: normocephalic, atraumatic, anicteric, mucous membranes moist Respiratory/Chest: lungs clear, normal breath sounds, no respiratory distress, no accessory muscle use Cardiovascular: normal rate, regular rhythm, no gallop/murmur, no JVD Abdomen: normal bowel sounds, soft, non tender, no organomegaly Genitourinary: other - no paredes Extremities: no cyanosis Skin: no rash 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 COMPARISON: No relevant prior studies available. FINDINGS: The cardiac and mediastinal silhouettes are unremarkable. Minor scattered areas of atelectasis in both lung bases. Negative for pneumothorax or pleural fluid collections. Chest x-ray - 05/10/20 - Procedure: XRAY Chest 1v Indication: Shortness of breath Technique: One view of the chest Comparison: 05/05/2020 Findings: Lungs and pleural spaces are clear. Heart size is normal. No significant change Impression: No acute process Microbiology Date/Time Source Procedure Growth Status 05/09/20 16:58 Nasopharynx SARS-CoV-2 RdRp Gene Assay - Final Complete 05/05/20 21:30 Urine,Clean Catch Urine Culture - Final Escherichia Coli Complete 05/05/20 21:30 Blood Blood Culture - Final NO GROWTH AFTER 5 DAYS Complete 05/05/20 20:30 Rectum - Final NO CARBAPENEM-RESISTANT ENTEROBACTERI... Complete Labs Test 05/13/20 06:20 White Blood Count 8.1 K/UL (4.8-10.8) Red Blood Count 4.54 M/UL (4.20-5.40) Hemoglobin 14.8 G/DL (12.0-16.0) Hematocrit 47.5 % (37.0-47.0) Mean Corpuscular Volume 105 FL (80-99) Mean Corpuscular Hemoglobin 32.5 PG (27.0-31.0) Mean Corpuscular Hemoglobin Concent 31.1 G/DL (32.0-36.0) Red Cell Distribution Width 13.9 % (11.6-14.8) Platelet Count 283 K/UL (150-450) Mean Platelet Volume 7.1 FL (6.5-10.1) Neutrophils (%) (Auto) 62.6 % (45.0-75.0) Lymphocytes (%) (Auto) 27.6 % (20.0-45.0) Monocytes (%) (Auto) 7.7 % (1.0-10.0) Eosinophils (%) (Auto) 1.6 % (0.0-3.0) Basophils (%) (Auto) 0.4 % (0.0-2.0) Sodium Level 146 MMOL/L (136-145) Potassium Level 4.0 MMOL/L (3.5-5.1) Chloride Level 110 MMOL/L (98-107) Carbon Dioxide Level 25 MMOL/L (21-32) Anion Gap 11 mmol/L (5-15) Blood Urea Nitrogen 35 mg/dL (7-18) Creatinine 1.0 MG/DL (0.55-1.30) Estimat Glomerular Filtration Rate 52.8 mL/min (>60) Glucose Level 91 MG/DL (74-106) Calcium Level 9.3 MG/DL (8.5-10.1) Total Bilirubin 0.4 MG/DL (0.2-1.0) Aspartate Amino Transf (AST/SGOT) 61 U/L (15-37) Alanine Aminotransferase (ALT/SGPT) 58 U/L (12-78) Alkaline Phosphatase 35 U/L (46-116) Total Protein 7.8 G/DL (6.4-8.2) Albumin 3.5 G/DL (3.4-5.0) Globulin 4.3 g/dL Albumin/Globulin Ratio 0.8 (1.0-2.7) Current Medications Medications (Trade) Dose Ordered Sig/Trina Route PRN Reason Start Time Stop Time Status Last Admin Dose Admin Acetaminophen (Tylenol) 650 mg Q4H PRN ORAL Temp >100.5 05/06/20 00:15 06/05/20 00:14 Albuterol Sulfate (Proventil MDI) 2 puff Q4H PRN INH Shortness of Breath 05/06/20 12:00 08/04/20 11:59 Amlodipine Besylate (Norvasc) 5 mg DAILY ORAL 05/15/20 09:00 06/14/20 08:59 Diphenhydramine HCl (Benadryl) 25 mg Q6H PRN ORAL Itching 05/06/20 00:15 06/05/20 00:14 Divalproex Sodium (Depakote Sprinkles) 125 mg DAILY ORAL 05/06/20 09:00 06/05/20 08:59 05/14/20 08:34 Heparin Sodium (Porcine) (Heparin 5000 units/ml) 5,000 units EVERY 12 HOURS SUBQ 05/06/20 09:00 06/20/20 08:59 05/14/20 08:40 Lisinopril (PriniviL) 40 mg DAILY ORAL 05/06/20 09:00 06/05/20 08:59 05/14/20 08:34 Ondansetron HCl (Zofran) 4 mg Q6H PRN IVP Nausea & Vomiting 05/06/20 00:15 06/05/20 00:14 Wale Schofield MD May 14, 2020 19:04
--- NOTE | 2020-05-14 19:15 | Surgery Progress Note ---
Surgery Progress Note Subjective Additional Comments no acute events Objective Last 24 Hour Vital Signs Date Time Temp Pulse Resp B/P (MAP) Pulse Ox O2 Delivery O2 Flow Rate FiO2 05/14/20 16:00 97.2 73 18 129/67 (87) 98 05/14/20 12:02 97.5 78 18 154/99 (117) 100 05/14/20 09:00 Room Air 05/14/20 08:34 156/97 05/14/20 08:00 97.3 71 19 156/97 (116) 99 05/14/20 04:00 98.6 85 18 121/72 (88) 96 05/14/20 00:00 97.2 73 19 133/75 (94) 97 05/13/20 21:00 Room Air 05/13/20 20:00 98.0 78 18 142/78 (99) 98 I&O Intake and Output 05/13/20 05/14/20 19:00 07:00 Intake Total 250 ml 400 ml Balance 250 ml 400 ml IV Total 250 ml 400 ml # Voids 1 2 Dressing: saturated Cardiovascular: RSR Respiratory: decreased breath sounds Abdomen: non-tender, present bowel sounds Extremities: no edema, no tenderness, no cyanosis Plan Problems: (1) Incontinence associated dermatitis Assessment & Plan: Patient identified admission to have incontinence associated and tightness around the sacral region. There is skin breakdown in the sacral cleft as well as the bilateral buttock and the sacral periwound with mild maceration of the epidermis but no open lesions. Patient is recently having diarrhea and at high risk for further breakdown. BMI of 29 albumin of 3.8 as the patient does have fairly good nutritional status at this time. To ensure that patient does not have further breakdown or opening of the skin will monitor for incontinence/diarrhea and treat accordingly. In the meantime continue with nutritional optimization as well as turning patient every 2 hours offloading pressure with pillows. Wash wounds daily with normal saline apply OPTi foam dressing to the sacral area okay to change every 3 days with skin protectant unless there is incontinence at which time change accordingly. Thank you will follow with recommendations (2) COVID-19 Assessment & Plan: COVID + ID input noted appreciated The cardiac and mediastinal silhouettes are unremarkable. Minor scattered areas of atelectasis in both lung bases. Negative for pneumothorax or pleural fluid collections. Jeramy Rhodes May 14, 2020 19:15
[2020-05-14 20:00] VITALS: BP 131/69
[2020-05-15] VITALS: BP 137/77
[2020-05-15 04:00] VITALS: BP 129/79
[2020-05-15 08:00] VITALS: BP 162/71
[2020-05-15] MEDS: Depakote 125mg Sprinkles ORAL SCH (09:00)
[2020-05-15] MEDS: Lisinopril 20mg tab ORAL SCH (09:00)
[2020-05-15] MEDS: Heparin 5000 units/ml inj SUBQ SCH ×2 (09:08→20:57)
--- NOTE | 2020-05-15 09:48 | Pulmonology Progress Note ---
Subjective Constitutional: Reports: fatigue; Denies: fever Gastrointestinal/Abdominal: Denies: nausea, vomiting, diarrhea Psychiatric: Denies: depression Skin: Denies: rash Musculoskeletal: Denies: pain Allergies: Coded Allergies: No Known Allergies (Unverified , 05/05/20) Subjective pulse ox stable on RA remains afebrile, no signs of resp distress repeated COVID 19 x2 NGT BCX + Staph hominis, contaminant -> off Zyvox order for dc placed 05/11 not dc due to placement issues dc plan ongoing Objective Last 24 Hour Vital Signs Date Time Temp Pulse Resp B/P (MAP) Pulse Ox O2 Delivery O2 Flow Rate FiO2 05/15/20 09:00 103 162/71 05/15/20 09:00 162/71 05/15/20 08:00 97.7 103 22 162/71 (101) 96 05/15/20 04:00 97.9 88 18 129/79 (96) 98 05/15/20 00:00 98.6 69 18 137/77 (97) 98 05/14/20 21:47 Room Air 05/14/20 20:00 97.5 72 18 131/69 (89) 98 05/14/20 16:00 97.2 73 18 129/67 (87) 98 05/14/20 12:02 97.5 78 18 154/99 (117) 100 Intake and Output 05/14/20 05/15/20 19:00 07:00 Intake Total 250 ml Balance 250 ml IV Total 250 ml # Voids 2 1 Objective General Appearance: no apparent distress, awake, demented, calm Lines, tubes and drains: peripheral HEENT: normocephalic, atraumatic, anicteric, mucous membranes moist Neck: non-tender, supple Respiratory/Chest: chest wall non-tender, lungs clear, no respiratory distress, no accessory muscle use Cardiovascular/Chest: normal rate Abdomen: normal bowel sounds, non tender, soft Genitourinary/Rectal: no CVAT Extremities: no calf tenderness, normal capillary refill, no edema Neurologic: alert , confused , no gross focal Musculoskeletal: atrophy Current Medications Medications (Trade) Dose Ordered Sig/Trina Route PRN Reason Start Time Stop Time Status Last Admin Dose Admin Acetaminophen (Tylenol) 650 mg Q4H PRN ORAL Temp >100.5 05/06/20 00:15 06/05/20 00:14 Albuterol Sulfate (Proventil MDI) 2 puff Q4H PRN INH Shortness of Breath 05/06/20 12:00 08/04/20 11:59 Amlodipine Besylate (Norvasc) 5 mg DAILY ORAL 05/15/20 09:00 06/14/20 08:59 05/15/20 09:00 Diphenhydramine HCl (Benadryl) 25 mg Q6H PRN ORAL Itching 05/06/20 00:15 06/05/20 00:14 Divalproex Sodium (Depakote Sprinkles) 125 mg DAILY ORAL 05/06/20 09:00 06/05/20 08:59 05/15/20 09:00 Heparin Sodium (Porcine) (Heparin 5000 units/ml) 5,000 units EVERY 12 HOURS SUBQ 05/06/20 09:00 06/20/20 08:59 05/15/20 09:08 Lisinopril (PriniviL) 40 mg DAILY ORAL 05/06/20 09:00 06/05/20 08:59 05/15/20 09:00 Ondansetron HCl (Zofran) 4 mg Q6H PRN IVP Nausea & Vomiting 05/06/20 00:15 06/05/20 00:14 Assessment/Plan Assessment/Plan ASSESSMENT COVID 19 infection Complicated UTI with diarrhea and generalized weakness GP Bacteremia - ? real vs contamination -likely contaminant Hypertension Hyperlipidemia Dementia Mild dehydration Thrombocytopenia - already resolved [facility] floor closely monitor resp status, pulse oximetry remains stable on RA; CXR no acute CP pathology hold off on steroids and abx for PNA, Remdesivivr not indicated in this case ID follows CRP NGT, D dimer 2.3, LDH -219 and ferritin 235; both stable IL6 still pending follow up CXR 05/10 - no acute CP pathology Albuterol via MDI prn DVT prophylaxis Venous Duplex BLE UA c/w with probable UTI UCX + E coli , completed Ceftin BCX with Staph hominis likely contaminant, off Zyvox repeated rapid COVID 19 05/08 and 05/09 both NGT gentle IV hydration -dc monitor volumes, renal parameters, lytes BP management with ANJALI BSSE aspiration precautions DNR/DNI status dc to assisted living vs SNF ( not dc 05/11 as ordered) no need for isolation : two consecutive COVID 19 negative per CM : assisted living not accepted until 05/19 ( despite two NGT COVID) needs to go for a short term SNF dc order in place, dc plan ongoing case discussed and evaluated by supervising physician Liseth Miranda NP May 15, 2020 09:48 Pradeep Ramos MD May 15, 2020 12:19
[2020-05-15 12:00] VITALS: BP 140/72
--- NOTE | 2020-05-15 15:21 | Surgery Progress Note ---
Surgery Progress Note Subjective Additional Comments no acute events resting comfortable no n/v Objective Last 24 Hour Vital Signs Date Time Temp Pulse Resp B/P (MAP) Pulse Ox O2 Delivery O2 Flow Rate FiO2 05/15/20 12:00 97.6 20 140/72 (94) 96 05/15/20 09:00 Room Air 05/15/20 09:00 103 162/71 05/15/20 09:00 162/71 05/15/20 08:00 97.7 103 22 162/71 (101) 96 05/15/20 04:00 97.9 88 18 129/79 (96) 98 05/15/20 00:00 98.6 69 18 137/77 (97) 98 05/14/20 21:47 Room Air 05/14/20 20:00 97.5 72 18 131/69 (89) 98 05/14/20 16:00 97.2 73 18 129/67 (87) 98 I&O Intake and Output 05/14/20 05/15/20 19:00 07:00 Intake Total 250 ml Balance 250 ml IV Total 250 ml # Voids 2 1 Dressing: saturated Cardiovascular: RSR Respiratory: decreased breath sounds Abdomen: soft, non-tender, present bowel sounds, non-distended Extremities: no tenderness, no cyanosis Plan Problems: (1) Incontinence associated dermatitis Assessment & Plan: Patient identified admission to have incontinence associated and tightness around the sacral region. There is skin breakdown in the sacral cleft as well as the bilateral buttock and the sacral periwound with mild ma ceration of the epidermis but no open lesions. Patient is recently having diarrhea and at high risk for further breakdown. BMI of 29 albumin of 3.8 as the patient does have fairly good nutritional status at this time. To ensure that patient does not have further breakdown or opening of the skin will monitor for incontinence/diarrhea and treat accordingly. In the meantime continue with nutritional optimization as well as turning patient every 2 hours offloading pressure with pillows. Wash wounds daily with normal saline apply OPTi foam dressing to the sacral area okay to change every 3 days with skin protectant unless there is incontinence at which time change accordingly. Thank you will follow with recommendations DAILY ESTIMATED NEEDS: Needs based on cardiac/ 62.5kg abw 25-30 kcals/kg 2120-0451 total kcals 1-1.3 g protein/kg 62-81 g total protein 25-30 mL/kg 1560-0911 total fluid mLs NUTRITION DIAGNOSIS: Inadequate oral intake R/T decreased appetite, decreased cognitive fxn, clinical condition as evidenced by refusing most meals, h/o dementia, recent COVID-19+. PO DIET RECOMMENDATIONS: Maintain liberalized regular/ texture as tolerated ENTERAL NUTRITION RECOMMENDATIONS: * consider non oral feeds if part of POC * ADDITIONAL RECOMMENDATIONS: * Calibrated bedscale wt: daily wts w/ variance 70's -> 97kg this AM * Consider appetite stimulant due to consistently poor PO * Monitor hydration status: poor PO, no IV access * Monitor lytes, replete as needed * Wound healing: MVI x 1, Vit C 250mg QD Abisai BID as tolerated * Ensure Enlive TID w/ meals for now, monitor acceptance (2) COVID-19 Assessment & Plan: COVID + ID input noted appreciated The cardiac and mediastinal silhouettes are unremarkable. Minor scattered areas of atelectasis in both lung bases. Negative for pneumothorax or pleural fluid collections. Jeramy Rhodes May 15, 2020 15:21
[2020-05-15 16:00] VITALS: BP 173/80
[2020-05-15 20:00] VITALS: BP 125/65
[2020-05-16] VITALS: BP 110/80
[2020-05-16 04:00] VITALS: BP 138/76
[2020-05-16 08:00] VITALS: BP 137/81
[2020-05-16] MEDS: Lisinopril 20mg tab ORAL SCH (09:00)
[2020-05-16] MEDS: Heparin 5000 units/ml inj SUBQ SCH ×2 (09:00→21:08)
[2020-05-16] MEDS: Depakote 125mg Sprinkles ORAL SCH (09:00)
--- NOTE | 2020-05-16 10:50 | Pulmonology Progress Note ---
Subjective Constitutional: Reports: fatigue; Denies: fever Gastrointestinal/Abdominal: Denies: nausea, vomiting, diarrhea Psychiatric: Denies: depression Skin: Denies: rash Musculoskeletal: Denies: pain Allergies: Coded Allergies: No Known Allergies (Unverified , 05/05/20) Subjective pulse ox stable on RA remains afebrile, no signs of resp distress repeated COVID 19 x2 NGT BCX + Staph hominis, contaminant -> off Zyvox poor appetite received IV fluids 05/15 order for dc placed 05/11 not dc due to placement issues dc plan ongoing , awaiting authorization for SNF Objective Last 24 Hour Vital Signs Date Time Temp Pulse Resp B/P (MAP) Pulse Ox O2 Delivery O2 Flow Rate FiO2 05/16/20 04:00 97.7 100 16 138/76 (96) 97 05/16/20 00:00 98.1 100 16 110/80 (90) 95 05/15/20 20:20 Room Air 05/15/20 20:00 99.3 97 14 125/65 (85) 96 05/15/20 16:00 97.9 20 173/80 (111) 96 05/15/20 12:00 97.6 20 140/72 (94) 96 Intake and Output 05/15/20 05/16/20 18:59 06:59 # Voids 1 Objective General Appearance: no apparent distress, awake, demented, calm Lines, tubes and drains: peripheral HEENT: normocephalic, atraumatic, anicteric, mucous membranes moist Neck: non-tender, supple Respiratory/Chest: chest wall non-tender, lungs clear, no respiratory distress, no accessory muscle use Cardiovascular/Chest: normal rate Abdomen: normal bowel sounds, non tender, soft Genitourinary/Rectal: no CVAT Extremities: no calf tenderness, normal capillary refill, no edema Neurologic: alert , confused , no gross focal Musculoskeletal: atrophy Current Medications Medications (Trade) Dose Ordered Sig/Trina Route PRN Reason Start Time Stop Time Status Last Admin Dose Admin Acetaminophen (Tylenol) 650 mg Q4H PRN ORAL Temp >100.5 05/06/20 00:15 06/05/20 00:14 Albuterol Sulfate (Proventil MDI) 2 puff Q4H PRN INH Shortness of Breath 05/06/20 12:00 08/04/20 11:59 Amlodipine Besylate (Norvasc) 5 mg DAILY ORAL 05/15/20 09:00 06/14/20 08:59 05/15/20 09:00 Diphenhydramine HCl (Benadryl) 25 mg Q6H PRN ORAL Itching 05/06/20 00:15 06/05/20 00:14 Divalproex Sodium (Depakote Sprinkles) 125 mg DAILY ORAL 05/06/20 09:00 06/05/20 08:59 05/15/20 09:00 Heparin Sodium (Porcine) (Heparin 5000 units/ml) 5,000 units EVERY 12 HOURS SUBQ 05/06/20 09:00 06/20/20 08:59 05/15/20 20:57 Lisinopril (PriniviL) 40 mg DAILY ORAL 05/06/20 09:00 06/05/20 08:59 05/15/20 09:00 Ondansetron HCl (Zofran) 4 mg Q6H PRN IVP Nausea & Vomiting 05/06/20 00:15 06/05/20 00:14 Assessment/Plan Assessment/Plan ASSESSMENT COVID 19 infection Complicated UTI with diarrhea and generalized weakness GP Bacteremia - ? real vs contamination -likely contaminant Hypertension Hyperlipidemia Dementia Mild dehydration Protein calorie malnutrition Thrombocytopenia - already resolved [facility] OF CARE [facility] floor closely monitor resp status, pulse oximetry remains stable on RA; CXR no acute CP pathology hold off on steroids and abx for PNA, Remdesivivr not indicated in this case ID follows CRP NGT, D dimer 2.3, LDH -219 and ferritin 235; both stable IL6 still pending -probably never sent follow up CXR 05/10 - no acute CP pathology Albuterol via MDI prn DVT prophylaxis Venous Duplex BLE UA c/w with probable UTI UCX + E coli , completed Ceftin BCX with Staph hominis likely contaminant, off Zyvox repeated rapid COVID 19 05/08 and 05/09 both NGT gentle IV hydration -dc monitor volumes, renal parameters, lytes BP management with ANJALI BSSE aspiration precautions push oral fluids protean supplements as per RD recs DNR/DNI status dc to assisted living vs SNF ( not dc 05/11 as ordered) no need for isolation : two consecutive COVID 19 negative per CM : assisted living not accepted until 11/21 ( despite two NGT COVID) needs to go for a short term SNF dc order in place for SNF/[place] - awaiting authorization /as per ELVIRA Dickey case discussed and evaluated by supervising physician Liseth Miranda NP May 16, 2020 10:50
[2020-05-16 12:00] VITALS: BP 132/78
--- NOTE | 2020-05-16 13:48 | Surgery Progress Note ---
Surgery Progress Note Subjective Additional Comments no acute events Objective Last 24 Hour Vital Signs Date Time Temp Pulse Resp B/P (MAP) Pulse Ox O2 Delivery O2 Flow Rate FiO2 05/16/20 12:00 98.4 105 20 132/78 (96) 96 05/16/20 09:00 Room Air 05/16/20 08:00 97.8 103 20 137/81 (99) 95 05/16/20 04:00 97.7 100 16 138/76 (96) 97 05/16/20 00:00 98.1 100 16 110/80 (90) 95 05/15/20 20:20 Room Air 05/15/20 20:00 99.3 97 14 125/65 (85) 96 05/15/20 16:00 97.9 20 173/80 (111) 96 I&O Intake and Output 05/15/20 05/16/20 19:00 07:00 # Voids 1 Dressing: saturated Cardiovascular: RSR Respiratory: decreased breath sounds Abdomen: soft, non-tender, present bowel sounds Extremities: no tenderness, no cyanosis Plan Problems: (1) Incontinence associated dermatitis Assessment & Plan: Patient identified admission to have incontinence associated and tightness around the sacral region. There is skin breakdown in the sacral cleft as well as the bilateral buttock and the sacral periwound with mild maceration of the epidermis but no open lesions. Patient is recently having diarrhea and at high risk for further breakdown. BMI of 29 albumin of 3.8 as the patient does have fairly good nutritional status at this time. To ensure that patient does not have further breakdown or opening of the skin will monitor for incontinence/diarrhea and treat accordingly. In the meantime continue with nutritional optimization as well as turning patient every 2 hours offloading pressure with pillows. Wash wounds daily with normal saline apply OPTi foam deni ssing to the sacral area okay to change every 3 days with skin protectant unless there is incontinence at which time change accordingly. Thank you will follow with recommendations DAILY ESTIMATED NEEDS: Needs based on cardiac/ 62.5kg abw 25-30 kcals/kg 2739-6771 total kcals 1-1.3 g protein/kg 62-81 g total protein 25-30 mL/kg 2602-8854 total fluid mLs NUTRITION DIAGNOSIS: Inadequate oral intake R/T decreased appetite, decreased cognitive fxn, clinical condition as evidenced by refusing most meals, h/o dementia, recent COVID-19+. PO DIET RECOMMENDATIONS: Maintain liberalized regular/ texture as tolerated ENTERAL NUTRITION RECOMMENDATIONS: * consider non oral feeds if part of POC * ADDITIONAL RECOMMENDATIONS: * Calibrated bedscale wt: daily wts w/ variance 70's -> 97kg this AM * Consider appetite stimulant due to consistently poor PO * Monitor hydration status: poor PO, no IV access * Monitor lytes, replete as needed * Wound healing: MVI x 1, Vit C 250mg QD Abisai BID as tolerated * Ensure Enlive TID w/ meals for now, monitor acceptance (2) COVID-19 Assessment & Plan: COVID + ID input noted appreciated The cardiac and mediastinal silhouettes are unremarkable. Minor scattered areas of atelectasis in both lung bases. Negative for pneumothorax or pleural fluid collections. Jeramy Rhodes May 16, 2020 13:48
--- NOTE | 2020-05-16 13:58 | Infectious Diseases Prog Note ---
Assessment/Plan Assessment/Plan ASSESSMENT AND PLAN: 1. 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 COVID-19 infection. Continue isolation. There is no indication for remdesivir or dexamethasone at this time. Saturation is 96% on room air without any respiratory symptoms - f/u rapid test neg x 2, consider discontinue isolation 3. Patient has history of hypertension. 4. Dementia. 5. Blood pressure treatment per primary care team. 6. Dyslipidemia. 7. Thrombocytopenia. 8. Dehydration. 9. IV fluids. 10. Continue treatment per primary consultants. 11. No known drug allergies. 12. Social history is negative. 13. Family history is noncontributory. 14. MAR is noted. 15. Case was discussed with RN. Subjective Constitutional: Denies: fever HEENT: Denies: congestion Respiratory: Denies: shortness of breath Cardiovascular: Denies: chest pain Gastrointestinal/Abdominal: Denies: nausea, vomiting, diarrhea Genitourinary: Denies: other Neurologic: Denies: headache, weakness Psychiatric: Denies: depression Skin: Denies: rash Hematologic: Denies: bleeding Musculoskeletal: Denies: pain Allergies: Coded Allergies: No Known Allergies (Unverified , 05/05/20) Objective Last 24 Hour Vital Signs Date Time Temp Pulse Resp B/P (MAP) Pulse Ox O2 Delivery O2 Flow Rate FiO2 05/16/20 12:00 98.4 105 20 132/78 (96) 96 05/16/20 09:00 Room Air 05/16/20 08:00 97.8 103 20 137/81 (99) 95 05/16/20 04:00 97.7 100 16 138/76 (96) 97 05/16/20 00:00 98.1 100 16 110/80 (90) 95 05/15/20 20:20 Room Air 05/15/20 20:00 99.3 97 14 125/65 (85) 96 05/15/20 16:00 97.9 20 173/80 (111) 96 Height (Feet): 5 Height (Inches): 5.00 Weight (Pounds): 175 General Appearance: no acute distress HEENT: normocephalic, atraumatic, anicteric, mucous membranes moist Respiratory/Chest: lungs clear, normal breath sounds, no respiratory distress, no accessory muscle use Cardiovascular: normal rate, regular rhythm, no gallop/murmur Abdomen: normal bowel sounds, soft, non tender, no organomegaly, non distended Genitourinary: other - no paredes Extremities: no cyanosis Skin: no rash 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 COMPARISON: No relevant prior studies available. FINDINGS: The cardiac and mediastinal silhouettes are unremarkable. Minor scattered areas of atelectasis in both lung bases. Negative for pneumothorax or pleural fluid collections. Chest x-ray - 05/10/20 - Procedure: XRAY Chest 1v Indication: Shortness of breath Technique: One view of the chest Comparison: 05/05/2020 Findings: Lungs and pleural spaces are clear. Heart size is normal. No significant change Impression: No acute process Microbiology Date/Time Source Procedure Growth Status 05/09/20 16:58 Nasopharynx SARS-CoV-2 RdRp Gene Assay - Final Complete 05/05/20 21:30 Urine,Clean Catch Urine Culture - Final Escherichia Coli Complete 05/05/20 21:30 Blood Blood Culture - Final NO GROWTH AFTER 5 DAYS Complete 05/05/20 20:30 Rectum - Final NO CARBAPENEM-RESISTANT ENTEROBACTERI... Complete wbc - 8.1 hgb - 14.8 cr - 1.0 Current Medications Medications (Trade) Dose Ordered Sig/Trina Route PRN Reason Start Time Stop Time Status Last Admin Dose Admin Acetaminophen (Tylenol) 650 mg Q4H PRN ORAL Temp >100.5 05/06/20 00:15 06/05/20 00:14 Albuterol Sulfate (Proventil MDI) 2 puff Q4H PRN INH Shortness of Breath 05/06/20 12:00 08/04/20 11:59 Amlodipine Besylate (Norvasc) 5 mg DAILY ORAL 05/15/20 09:00 06/14/20 08:59 05/15/20 09:00 Diphenhydramine HCl (Benadryl) 25 mg Q6H PRN ORAL Itching 05/06/20 00:15 06/05/20 00:14 Divalproex Sodium (Depakote Sprinkles) 125 mg DAILY ORAL 05/06/20 09:00 06/05/20 08:59 05/15/20 09:00 Heparin Sodium (Porcine) (Heparin 5000 units/ml) 5,000 units EVERY 12 HOURS SUBQ 05/06/20 09:00 06/20/20 08:59 05/15/20 20:57 Lisinopril (PriniviL) 40 mg DAILY ORAL 05/06/20 09:00 06/05/20 08:59 05/15/20 09:00 Ondansetron HCl (Zofran) 4 mg Q6H PRN IVP Nausea & Vomiting 05/06/20 00:15 06/05/20 00:14 Wale Schofield MD May 16, 2020 13:58
[2020-05-16 16:00] VITALS: BP 135/75
[2020-05-16 20:00] VITALS: BP 144/88
[2020-05-17] VITALS: BP 117/75
[2020-05-17 08:00] VITALS: BP 140/78
[2020-05-17] MEDS: Heparin 5000 units/ml inj SUBQ SCH ×3 (09:00→20:54)
[2020-05-17] MEDS: Lisinopril 20mg tab ORAL SCH (09:26)
[2020-05-17] MEDS: Depakote 125mg Sprinkles ORAL SCH (09:27)
--- NOTE | 2020-05-17 10:26 | Pulmonology Progress Note ---
Subjective Constitutional: Denies: fever Gastrointestinal/Abdominal: Denies: nausea, vomiting, diarrhea Psychiatric: Denies: depression Skin: Denies: rash Musculoskeletal: Denies: pain Allergies: Coded Allergies: No Known Allergies (Unverified , 05/05/20) Subjective pulse ox stable on RA remains afebrile, no signs of resp distress repeated COVID 19 x2 NGT BCX + Staph hominis, contaminant -> off Zyvox poor appetite received IV fluids 05/15 order for dc placed 05/11 not dc due to placement issues dc plan ongoing , awaiting authorization for SNF, tentatively planning dc for today [facility] Objective Last 24 Hour Vital Signs Date Time Temp Pulse Resp B/P (MAP) Pulse Ox O2 Delivery O2 Flow Rate FiO2 05/17/20 09:27 95 140/78 05/17/20 09:26 140/78 05/17/20 08:00 98.2 95 19 140/78 (98) 95 05/17/20 00:00 97.2 100 14 117/75 (89) 96 05/16/20 21:00 Room Air 05/16/20 20:00 98.5 107 18 144/88 (106) 94 05/16/20 16:00 97.8 102 20 135/75 (95) 96 05/16/20 12:00 98.4 105 20 132/78 (96) 96 Intake and Output 05/16/20 05/17/20 19:00 07:00 Intake Total 100 ml Balance 100 ml Intake Oral 100 ml # Voids 3 3 Objective General Appearance: no apparent distress, awake, demented, calm Lines, tubes and drains: peripheral HEENT: normocephalic, atraumatic, anicteric, mucous membranes moist Neck: non-tender, supple Respiratory/Chest: chest wall non-tender, lungs clear, no respiratory distress, no accessory muscle use Cardiovascular/Chest: normal rate Abdomen: normal bowel sounds, non tender, soft Genitourinary/Rectal: no CVAT Extremities: no calf tenderness, normal capillary refill, no edema Neurologic: alert , confused , no gross focal Musculoskeletal: atrophy Current Medications Medications (Trade) Dose Ordered Sig/Trina Route PRN Reason Start Time Stop Time Status Last Admin Dose Admin Acetaminophen (Tylenol) 650 mg Q4H PRN ORAL Temp >100.5 05/06/20 00:15 06/05/20 00:14 Albuterol Sulfate (Proventil MDI) 2 puff Q4H PRN INH Shortness of Breath 05/06/20 12:00 08/04/20 11:59 Amlodipine Besylate (Norvasc) 5 mg DAILY ORAL 05/15/20 09:00 06/14/20 08:59 05/17/20 09:27 Diphenhydramine HCl (Benadryl) 25 mg Q6H PRN ORAL Itching 05/06/20 00:15 06/05/20 00:14 Divalproex Sodium (Depakote Sprinkles) 125 mg DAILY ORAL 05/06/20 09:00 06/05/20 08:59 05/17/20 09:27 Heparin Sodium (Porcine) (Heparin 5000 units/ml) 5,000 units EVERY 12 HOURS SUBQ 05/06/20 09:00 06/20/20 08:59 05/16/20 21:08 Lisinopril (PriniviL) 40 mg DAILY ORAL 05/06/20 09:00 06/05/20 08:59 05/17/20 09:26 Ondansetron HCl (Zofran) 4 mg Q6H PRN IVP Nausea & Vomiting 05/06/20 00:15 06/05/20 00:14 Assessment/Plan Assessment/Plan ASSESSMENT COVID infection Complicated UTI with diarrhea and generalized weakness GP Bacteremia - ? real vs contamination -likely contaminant Hypertension Hyperlipidemia Dementia Mild dehydration Protein calorie malnutrition Thrombocytopenia - already resolved [facility]AN OF CARE [facility] floor closely monitor resp status, pulse oximetry remains stable on RA; CXR no acute CP pathology hold off on steroids and abx for PNA, Remdesivivr not indicated in this case ID follows CRP NGT, D dimer 2.3, LDH -219 and ferritin 235; both stable IL6 still pending -probably never sent follow up CXR 05/10 - no acute CP pathology Albuterol via MDI prn DVT prophylaxis Venous Duplex BLE 05/15 NGT UA c/w with probable UTI UCX + E coli , completed Ceftin BCX with Staph hominis likely contaminant, off Zyvox repeated rapid COVID 19 05/08 and 05/09 both NGT gentle IV hydration -dc monitor volumes, renal parameters, lytes BP management with ANJALI BSSE aspiration precautions push oral fluids protean supplements as per RD recs DNR/DNI status dc to assisted living vs SNF ( not dc 05/11 as ordered) no need for isolation : two consecutive COVID 19 negative per CM : assisted living not accepted until 05/19 ( despite two NGT COVID) needs to go for a short term SNF dc order in place for SNF/[facility] - awaiting authorization /as per CM Keli case discussed and evaluated by supervising physician Liseth Miranda NP May 17, 2020 10:26 Pradeep Ramos MD May 17, 2020 11:45
--- NOTE | 2020-05-17 13:09 | Surgery Progress Note ---
Surgery Progress Note Subjective Symptoms: improved, tolerating diet, passing flatus Objective Last 24 Hour Vital Signs Date Time Temp Pulse Resp B/P (MAP) Pulse Ox O2 Delivery O2 Flow Rate FiO2 05/17/20 09:27 95 140/78 05/17/20 09:26 140/78 05/17/20 09:00 Room Air 05/17/20 08:00 98.2 95 19 140/78 (98) 95 05/17/20 00:00 97.2 100 14 117/75 (89) 96 05/16/20 21:00 Room Air 05/16/20 20:00 98.5 107 18 144/88 (106) 94 05/16/20 16:00 97.8 102 20 135/75 (95) 96 I&O Intake and Output 05/16/20 05/17/20 19:00 07:00 Intake Total 100 ml Balance 100 ml Intake Oral 100 ml # Voids 3 3 Dressing: saturated Cardiovascular: RSR Respiratory: decreased breath sounds Abdomen: non-tender, present bowel sounds, non-distended Extremities: no edema, no tenderness, no cyanosis Plan Problems: (1) Incontinence associated dermatitis Assessment & Plan: Patient identified admission to have incontinence associated and tightness around the sacral region. There is skin breakdown in the sacral cleft as well as the bilateral buttock and the sacral periwound with mild maceration of the epidermis but no open lesions. Patient is recently having diarrhea and at high risk for further breakdown. BMI of 29 albumin of 3.8 as the patient does have fairly good nutritional status at this time. To ensure that patient does not have further breakdown or opening of the skin will monitor for incontinence/diarrhea and treat accordingly. In the meantime continue with nutritional optimization as well as turning patient every 2 hours offloading pressure with pillows. Wash wounds daily with normal saline apply OPTi foam dressing to the sacral area okay to change every 3 days with skin protectant unless there is incontinence at which time change accordingly. Thank you will follow with recommendations DAILY ESTIMATED NEEDS: Needs based on cardiac/ 62.5kg abw 25-30 kcals/kg 1444-2304 total kcals 1-1.3 g protein/kg 62-81 g total protein 25-30 mL/kg 7314-7679 total fluid mLs NUTRITION DIAGNOSIS: Inadequate oral intake R/T decreased appetite, decreased cognitive fxn, clinical condition as evidenced by refusing most meals, h/o dementia, recent COVID-19+. PO DIET RECOMMENDATIONS: Maintain liberalized regular/ texture as tolerated ENTERAL NUTRITION RECOMMENDATIONS: * consider non oral feeds if part of POC * ADDITIONAL RECOMMENDATIONS: * Calibrated bedscale wt: daily wts w/ variance 70's -> 97kg this AM * Consider appetite stimulant due to consistently poor PO * Monitor hydration status: poor PO, no IV access * Monitor lytes, replete as needed * Wound healing: MVI x 1, Vit C 250mg QD Abisai BID as tolerated * Ensure Enlive TID w/ meals for now, monitor acceptance (2) COVID-19 Assessment & Plan: COVID + ID input noted appreciated The cardiac and mediastinal silhouettes are unremarkable. Minor scattered areas of atelectasis in both lung bases. Negative for pneumothorax or pleural fluid collections. Jeramy Rhodes May 17, 2020 13:09
[2020-05-17 16:00] VITALS: BP 116/75
[2020-05-17 20:00] VITALS: BP 136/77
[2020-05-18] VITALS (8 sets, daily range): BP systolic 98–145; BP diastolic 60–97
[2020-05-18] MEDS: Depakote 125mg Sprinkles ORAL SCH (09:00)
[2020-05-18] MEDS: Lisinopril 20mg tab ORAL SCH (09:00)
[2020-05-18] MEDS: Heparin 5000 units/ml inj SUBQ SCH ×2 (09:00→20:13)
--- NOTE | 2020-05-18 10:36 | Pulmonology Progress Note ---
Subjective Constitutional: Denies: fever Gastrointestinal/Abdominal: Denies: nausea, vomiting, diarrhea Psychiatric: Denies: depression Skin: Denies: rash Musculoskeletal: Denies: pain Allergies: Coded Allergies: No Known Allergies (Unverified , 05/05/20) Subjective pulse ox stable on RA remains afebrile, no signs of resp distress repeated COVID 19 x2 NGT BCX + Staph hominis, contaminant -> off Zyvox poor appetite received IV fluids 05/15 order for dc placed 05/11 not dc due to placement issues dc plan ongoing , awaiting authorization for SNF, tentatively planning dc for [facility]/pending authorization Objective Last 24 Hour Vital Signs Date Time Temp Pulse Resp B/P (MAP) Pulse Ox O2 Delivery O2 Flow Rate FiO2 05/18/20 09:00 105 117/78 05/18/20 09:00 117/78 05/18/20 08:00 105 20 117/78 (91) 96 05/18/20 04:00 97.8 106 20 139/74 (95) 94 05/18/20 00:00 96.5 112 20 145/76 (99) 93 05/17/20 21:00 Room Air 05/17/20 20:00 98.1 100 19 136/77 (96) 95 05/17/20 16:00 97.9 113 18 116/75 (89) 92 Intake and Output 05/17/20 05/18/20 19:00 07:00 Intake Total 30 ml Balance 30 ml Intake Oral 30 ml # Voids 3 Objective General Appearance: no apparent distress, awake, demented, calm Lines, tubes and drains: peripheral HEENT: normocephalic, atraumatic, anicteric, mucous membranes moist Neck: non-tender, supple Respiratory/Chest: chest wall non-tender, lungs clear, no respiratory distress, no accessory muscle use Cardiovascular/Chest: normal rate, occas low tachy 105 -108 Abdomen: normal bowel sounds, non tender, soft Genitourinary/Rectal: no CVAT Extremities: no calf tenderness, normal capillary refill, no edema Neurologic: alert , confused , no gross focal Musculoskeletal: atrophy Current Medications Medications (Trade) Dose Ordered Sig/Trina Route PRN Reason Start Time Stop Time Status Last Admin Dose Admin Acetaminophen (Tylenol) 650 mg Q4H PRN ORAL Temp >100.5 05/06/20 00:15 06/05/20 00:14 Albuterol Sulfate (Proventil MDI) 2 puff Q4H PRN INH Shortness of Breath 05/06/20 12:00 08/04/20 11:59 Amlodipine Besylate (Norvasc) 5 mg DAILY ORAL 05/15/20 09:00 06/14/20 08:59 05/18/20 09:00 Diphenhydramine HCl (Benadryl) 25 mg Q6H PRN ORAL Itching 05/06/20 00:15 06/05/20 00:14 Divalproex Sodium (Depakote Sprinkles) 125 mg DAILY ORAL 05/06/20 09:00 06/05/20 08:59 05/18/20 09:00 Heparin Sodium (Porcine) (Heparin 5000 units/ml) 5,000 units EVERY 12 HOURS SUBQ 05/06/20 09:00 06/20/20 08:59 05/18/20 09:00 Lisinopril (PriniviL) 40 mg DAILY ORAL 05/06/20 09:00 06/05/20 08:59 05/18/20 09:00 Ondansetron HCl (Zofran) 4 mg Q6H PRN IVP Nausea & Vomiting 05/06/20 00:15 06/05/20 00:14 Assessment/Plan Assessment/Plan ASSESSMENT COVID 19 infection Complicated UTI with diarrhea and generalized weakness GP Bacteremia - ? real vs contamination -likely contaminant Hypertension Hyperlipidemia Dementia Mild dehydration Protein calorie malnutrition Thrombocytopenia - already resolved PLAN OF CARE [facility] floor closely monitor resp status, pulse oximetry remains stable on RA; CXR no acute CP pathology hold off on steroids and abx for PNA, Remdesivivr not indicated in this case ID follows CRP NGT, D dimer 2.3, LDH -219 and ferritin 235; both stable IL6 still pending -probably never sent follow up CXR 05/10 - no acute CP pathology Albuterol via MDI prn DVT prophylaxis Venous Duplex BLE 05/15 NGT UA c/w with probable UTI UCX + E coli , completed Ceftin BCX with Staph hominis likely contaminant, off Zyvox repeated rapid COVID 19 05/08 and 05/09 both NGT gentle IV hydration -dc monitor volumes, renal parameters, lytes BP management with ANJALI BSSE aspiration precautions push oral fluids protean supplements as per RD recs DNR/DNI status dc to assisted living vs SNF ( not dc 05/11 as ordered) no need for isolation : two consecutive COVID 19 negative per CM : assisted living not accepted until 05/19 ( despite two NGT COVID) needs to go for a short term SNF dc order in place for SNF/[facility] - awaiting authorization /as per CM Keli case discussed and evaluated by supervising physician Liseth Miranda NP May 18, 2020 10:36 Pradeep Ramos MD May 18, 2020 14:26
--- NOTE | 2020-05-18 16:45 | Surgery Progress Note ---
Surgery Progress Note Subjective Additional Comments no acute events comfortable stable Objective Last 24 Hour Vital Signs Date Time Temp Pulse Resp B/P (MAP) Pulse Ox O2 Delivery O2 Flow Rate FiO2 05/18/20 16:00 97.8 93 20 119/67 (84) 96 05/18/20 12:03 Room Air 05/18/20 12:00 97.9 65 20 138/97 (111) 92 05/18/20 11:59 97.9 65 20 138/92 (107) 95 05/18/20 09:00 Room Air 05/18/20 09:00 105 117/78 05/18/20 09:00 117/78 05/18/20 08:00 105 20 117/78 (91) 96 05/18/20 04:00 97.8 106 20 139/74 (95) 94 05/18/20 00:00 96.5 112 20 145/76 (99) 93 05/17/20 21:00 Room Air 05/17/20 20:00 98.1 100 19 136/77 (96) 95 I&O Intake and Output 05/17/20 05/18/20 19:00 07:00 Intake Total 30 ml Balance 30 ml Intake Oral 30 ml # Voids 3 Dressing: saturated Cardiovascular: RSR Respiratory: decreased breath sounds Abdomen: non-tender, present bowel sounds Extremities: no edema, no tenderness, no cyanosis Plan Problems: (1) Incontinence associated dermatitis Assessment & Plan: Patient identified admission to have incontinence associated and tightness around the sacral region. There is skin breakdown in the sacral cleft as well as the bilateral buttock and the sacral periwound with mild maceration of the epidermis but no open lesions. Patient is recently having diarrhea and at high risk for further breakdown. BMI of 29 albumin of 3.8 as the patient does have fairly good nutritional status at this time. To ensure that patient does not have further breakdown or opening of the skin will monitor for incontinence/diarrhea and treat accordingly. In the meantime continue with nutritional optimization as well as turning patient every 2 hours offloading pressure with pillows. Wash wounds daily with normal saline apply OPTi foam dressing to the sacral area okay to change every 3 days with skin protectant unless there is incontinence at which time change accordingly. Thank you will follow with recommendations DAILY ESTIMATED NEEDS: Needs based on cardiac/ 62.5kg abw 25-30 kcals/kg 7602-2126 total kcals 1-1.3 g protein/kg 62-81 g total protein 25-30 mL/kg 1585-7704 total fluid mLs NUTRITION DIAGNOSIS: Inadequate oral intake R/T decreased appetite, decreased cognitive fxn, clinical condition as evidenced by refusing most meals, h/o dementia, recent COVID-19+. (CURRENT DIET:REGULAR/ SOFT) PO DIET RECOMMENDATIONS--->>> Maintain liberalized regular/ texture as tolerated ENTERAL NUTRITION RECOMMENDATIONS: * consider non oral feeds if part of POC * ADDITIONAL RECOMMENDATIONS: * Calibrated bedscale wt: daily wts w/ variance 70's -> 97kg this AM * Consider appetite stimulant due to consistently poor PO * Monitor hydration status: poor PO, no IV access * Monitor lytes, replete as needed * Wound healing: MVI x 1, Vit C 250mg QD Abisai BID as tolerated * Ensure Enlive TID w/ meals for now, monitor acceptance (2) COVID-19 Assessment & Plan: COVID + ID input noted appreciated The cardiac and mediastinal silhouettes are unremarkable. Minor scattered areas of atelectasis in both lung bases. Negative for pneumothorax or pleural fluid collections. Jeramy Rhodes May 18, 2020 16:45
--- NOTE | 2020-05-18 17:07 | Cardiology Report ---
APPROVED REPORT EKG Measurement Heart [id number] <Conclusion> Normal sinus rhythm Left axis deviation Abnormal ECG
[2020-05-19 04:00] VITALS: BP 95/59
[2020-05-19 07:29] LABS: BASOPHILS % (AUTO) 0.3 % (0.0-2.0); EOSINOPHILS % (AUTO) 0.2 % (0.0-3.0); HEMATOCRIT 52.8 % (37.0-47.0); HEMOGLOBIN 16.3 G/DL (12.0-16.0); LYMPHOCYTES % (AUTO) 20.5 % (20.0-45.0); MEAN CORPUSCULAR VOLUME 107 FL (80-99); MONOCYTES % (AUTO) 7.3 % (1.0-10.0); NEUTROPHILS % (AUTO) 71.7 % (45.0-75.0); PLATELET COUNT 149 K/UL (150-450); RED BLOOD COUNT 4.95 M/UL (4.20-5.40); RED CELL DISTRIBUTION WIDTH 14.4 % (11.6-14.8); WHITE BLOOD COUNT 12.9 K/UL (4.8-10.8)
[2020-05-19 07:52] LABS: CALCIUM 9.8 MG/DL (8.5-10.1); CREATININE 3.2 MG/DL (0.55-1.30); POTASSIUM 4.2 MMOL/L (3.5-5.1)
[2020-05-19 08:00] VITALS: BP 93/60
[2020-05-19] MEDS: Lisinopril 20mg tab ORAL SCH (08:40)
[2020-05-19] MEDS: Depakote 125mg Sprinkles ORAL SCH ×2 (09:00→09:22)
[2020-05-19] MEDS: Heparin 5000 units/ml inj SUBQ SCH ×2 (09:00→20:14)
--- NOTE | 2020-05-19 09:30 | Pulmonology Progress Note ---
Subjective Constitutional: Denies: fever Gastrointestinal/Abdominal: Denies: nausea, vomiting, diarrhea Psychiatric: Denies: depression Skin: Denies: rash Musculoskeletal: Denies: pain Allergies: Coded Allergies: No Known Allergies (Unverified , 05/05/20) Subjective mild leukocytosis today pulse ox stable on RA remains afebrile, no signs of resp distress repeated COVID 19 x2 NGT Na 159 today creat up to 3.2 dc plan ongoing , awaiting authorization for SNF, now accepted to [facility] bed not available until Thursday Objective Last 24 Hour Vital Signs Date Time Temp Pulse Resp B/P (MAP) Pulse Ox O2 Delivery O2 Flow Rate FiO2 05/19/20 08:40 94 93/60 05/19/20 08:40 93/60 05/19/20 04:00 98.9 94 18 95/59 (71) 93 05/18/20 23:22 98.6 91 18 98/60 (73) 93 05/18/20 21:00 Room Air 05/18/20 20:00 98.6 95 18 99/64 (76) 93 05/18/20 16:00 97.8 93 20 119/67 (84) 96 05/18/20 12:03 Room Air 05/18/20 12:00 97.9 65 20 138/97 (111) 92 05/18/20 11:59 97.9 65 20 138/92 (107) 95 Intake and Output 05/18/20 05/19/20 19:00 07:00 Intake Total 40 ml 60 ml Balance 40 ml 60 ml Intake Oral 40 ml 60 ml # Voids 2 Objective General Appearance: no apparent distress, awake, demented, calm Lines, tubes and drains: peripheral HEENT: normocephalic, atraumatic, anicteric, mucous membranes moist Neck: non-tender, supple Respiratory/Chest: chest wall non-tender, lungs clear, no respiratory distress, no accessory muscle use Cardiovascular/Chest: normal rate, occas low tachy 105 -108 Abdomen: normal bowel sounds, non tender, soft Genitourinary/Rectal: no CVAT Extremities: no calf tenderness, normal capillary refill, no edema Neurologic: alert , confused , no gross focal Musculoskeletal: atrophy Laboratory Tests 05/19/20 06:30: White Blood Count 12.9H, Red Blood Count 4.95, Hemoglobin 16.3H, Hematocrit 52.8H, Mean Corpuscular Volume 107H, Mean Corpuscular Hemoglobin 32.8H, Mean Corpuscular Hemoglobin Concent 30.8L, Red Cell Distribution Width 14.4, Platelet Count 149L, Mean Platelet Volume 9.5, Neutrophils (%) (Auto) 71.7, Lymphocytes (%) (Auto) 20.5, Monocytes (%) (Auto) 7.3, Eosinophils (%) (Auto) 0.2, Basophils (%) (Auto) 0.3, Sodium Level 159H, Potassium Level 4.2, Chloride Level 121H, Carbon Dioxide Level 24, Anion Gap 14, Blood Urea Nitrogen 79H, Creatinine 3.2H, Estimat Glomerular Filtration Rate 13.8, Glucose Level 125H, Calcium Level 9.8 Current Medications Medications (Trade) Dose Ordered Sig/Trina Route PRN Reason Start Time Stop Time Status Last Admin Dose Admin Acetaminophen (Tylenol) 650 mg Q4H PRN ORAL Temp >100.5 05/06/20 00:15 06/05/20 00:14 Albuterol Sulfate (Proventil MDI) 2 puff Q4H PRN INH Shortness of Breath 05/06/20 12:00 08/04/20 11:59 Amlodipine Besylate (Norvasc) 5 mg DAILY ORAL 05/15/20 09:00 06/14/20 08:59 05/18/20 09:00 Dextrose 1,000 ml @ 75 mls/hr [id number] ONCE IV 05/19/20 09:18 05/19/20 22:37 05/19/20 09:18 Diphenhydramine HCl (Benadryl) 25 mg Q6H PRN ORAL Itching 05/06/20 00:15 06/05/20 00:14 Divalproex Sodium (Depakote Sprinkles) 125 mg DAILY ORAL 05/06/20 09:00 06/05/20 08:59 05/19/20 09:22 Heparin Sodium (Porcine) (Heparin 5000 units/ml) 5,000 units EVERY 12 HOURS SUBQ 05/06/20 09:00 06/20/20 08:59 05/18/20 20:13 Lisinopril (PriniviL) 40 mg DAILY ORAL 05/06/20 09:00 12/8/20 08:59 05/18/20 09:00 Ondansetron HCl (Zofran) 4 mg Q6H PRN IVP Nausea & Vomiting 05/06/20 00:15 06/05/20 00:14 Assessment/Plan Assessment/Plan ASSESSMENT COVID 19 infection Complicated UTI with diarrhea and generalized weakness GP Bacteremia - ? real vs contamination -likely contaminant Dehydration KAMI Hyper Na due to dehydration Hypertension Hyperlipidemia Dementia Protein calorie malnutrition Thrombocytopenia - already resolved PLAN OF CARE [facility] floor start IVF with D5W check UA and cx stat ; straight cath ok monmiotr volumes, renal parameters. UA+pyuria; start empiric Rocephin resp status stable , pulse oximetry remains stable on RA; CXR no acute CP pathology hold off on steroids and abx for PNA, Remdesivivr not indicated in this case ID follows CRP NGT, D dimer 2.3, LDH -219 and ferritin 235; both stable IL6 still pending -probably never sent follow up CXR 05/10 - no acute CP pathology Albuterol via MDI prn DVT prophylaxis Venous Duplex BLE 05/15 NGT UA c/w with probable UTI UCX + E coli , completed Ceftin BCX with Staph hominis likely contaminant, off Zyvox repeated rapid COVID 19 05/08 and 05/09 both NGT gentle IV hydration -dc monitor volumes, renal parameters, lytes BP management with ANJALI BSSE aspiration precautions push oral fluids protean supplements as per RD recs DNR/DNI status dc to assisted living vs SNF ( not dc 05/11 as ordered) no need for isolation : two consecutive COVID 19 negative per CM : assisted living not accepted until 05/19 ( despite two NGT COVID) needs to go for a short term SNF PT eval and Rx accepted at [facility], bed not available till Thursday case discussed and evaluated by supervising physician Liseth Miranda NP May 19, 2020 09:30 Pradeep Ramos MD May 20, 2020 09:26
--- NOTE | 2020-05-19 11:34 | Surgery Progress Note ---
Surgery Progress Note Subjective Additional Comments more responsive labs noted exam stable d/c planning to SNF soon Objective Last 24 Hour Vital Signs Date Time Temp Pulse Resp B/P (MAP) Pulse Ox O2 Delivery O2 Flow Rate FiO2 05/19/20 09:00 Room Air 05/19/20 08:40 94 93/60 05/19/20 08:40 93/60 05/19/20 08:00 98.2 104 20 93/60 (71) 94 05/19/20 04:00 98.9 94 18 95/59 (71) 93 05/18/20 23:22 98.6 91 18 98/60 (73) 93 05/18/20 21:00 Room Air 05/18/20 20:00 98.6 95 18 99/64 (76) 93 05/18/20 16:00 97.8 93 20 119/67 (84) 96 05/18/20 12:03 Room Air 05/18/20 12:00 97.9 65 20 138/97 (111) 92 05/18/20 11:59 97.9 65 20 138/92 (107) 95 I&O Intake and Output 05/18/20 05/19/20 19:00 07:00 Intake Total 40 ml 60 ml Balance 40 ml 60 ml Intake Oral 40 ml 60 ml # Voids 2 Dressing: saturated Cardiovascular: RSR Respiratory: decreased breath sounds Abdomen: soft, non-tender, present bowel sounds, non-distended Extremities: no edema, no tenderness, no cyanosis Laboratory Tests Test 05/19/20 06:30 White Blood Count 12.9 K/UL (4.8-10.8) H Red Blood Count 4.95 M/UL (4.20-5.40) Hemoglobin 16.3 G/DL (12.0-16.0) H Hematocrit 52.8 % (37.0-47.0) H Mean Corpuscular Volume 107 FL (80-99) H Mean Corpuscular Hemoglobin 32.8 PG (27.0-31.0) H Mean Corpuscular Hemoglobin Concent 30.8 G/DL (32.0-36.0) L Red Cell Distribution Width 14.4 % (11.6-14.8) Platelet Count 149 K/UL (150-450) L Mean Platelet Volume 9.5 FL (6.5-10.1) Neutrophils (%) (Auto) 71.7 % (45.0-75.0) Lymphocytes (%) (Auto) 20.5 % (20.0-45.0) Monocytes (%) (Auto) 7.3 % (1.0-10.0) Eosinophils (%) (Auto) 0.2 % (0.0-3.0) Basophils (%) (Auto) 0.3 % (0.0-2.0) Sodium Level 159 MMOL/L (136-145) H Potassium Level 4.2 MMOL/L (3.5-5.1) Chloride Level 121 MMOL/L (98-107) H Carbon Dioxide Level 24 MMOL/L (21-32) Anion Gap 14 mmol/L (5-15) Blood Urea Nitrogen 79 mg/dL (7-18) H Creatinine 3.2 MG/DL (0.55-1.30) H Estimat Glomerular Filtration Rate 13.8 mL/min (>60) Glucose Level 125 MG/DL (74-106) H Calcium Level 9.8 MG/DL (8.5-10.1) Plan Problems: (1) Incontinence associated dermatitis Assessment & Plan: Patient identified admission to have incontinence associated and tightness around the sacral region. There is skin breakdown in the sacral cleft as well as the bilateral buttock and the sacral periwound with mild maceration of the epidermis but no open lesions. Patient is recently having diarrhea and at high risk for further breakdown. BMI of 29 albumin of 3.8 as the patient does have fairly good nutritional status at this time. To ensure that patient does not have further breakdown or opening of the skin will monitor for incontinence/diarrhea and treat accordingly. In the meantime continue with nutritional optimization as well as turning patient every 2 hours offloading pressure with pillows. Wash wounds daily with normal saline apply OPTi foam dressing to the sacral area okay to change every 3 days with skin protectant unless there is incontinence at which time change accordingly. Thank you will follow with recommendations DAILY ESTIMATED NEEDS: Needs based on cardiac/ 62.5kg abw 25-30 kcals/kg 9464-7983 total kcals 1-1.3 g protein/kg 62-81 g total protein 25-30 mL/kg 4344-4860 total fluid mLs NUTRITION DIAGNOSIS: Inadequate oral intake R/T decreased appetite, decreased cognitive fxn, clinical condition as evidenced by refusing most meals, h/o dementia, recent COVID-19+. (CURRENT DIET:REGULAR/ SOFT) PO DIET RECOMMENDATIONS--->>> Maintain liberalized regular/ texture as tolerated ENTERAL NUTRITION RECOMMENDATIONS: * consider non oral feeds if part of POC * ADDITIONAL RECOMMENDATIONS: * Calibrated bedscale wt: daily wts w/ variance 70's -> 97kg this AM * Consider appetite stimulant due to consistently poor PO * Monitor hydration status: poor PO, no IV access * Monitor lytes, replete as needed * Wound healing: MVI x 1, Vit C 250mg QD Abisai BID as tolerated * Ensure Enlive TID w/ meals for now, monitor acceptance (2) COVID-19 Assessment & Plan: COVID + ID input noted appreciated The cardiac and mediastinal silhouettes are unremarkable. Minor scattered areas of atelectasis in both lung bases. Negative for pneumothorax or pleural fluid collections. Jeramy Rhodes May 19, 2020 11:34
[2020-05-19 12:00] VITALS: BP 98/62
[2020-05-19 12:03] LABS: APPEARANCE,URINE SLIGHTLY CLOUDY; BILIRUBIN, URINE NEGATIVE (NEGATIVE); GLUCOSE, URINE (UA) NEGATIVE (NEGATIVE); KETONES,URINE 1+ (NEGATIVE); LEUKOCYTE ESTERASE ,URINE 3+ (NEGATIVE); NITRITE,URINE NEGATIVE (NEGATIVE); PH,URINE 5 (4.5-8.0); PROTEIN,URINE 2+ (NEGATIVE); UROBILINOGEN,URINE NORMAL MG/DL (0.0-1.0)
[2020-05-19 12:15] LABS: COLOR,URINE YELLOW
[2020-05-19] MEDS: cefTRIAXone 1 GM in D5W 55 ML IVPB SCH (13:22)
[2020-05-19 16:00] VITALS: BP 83/51
[2020-05-19 17:01] VITALS: BP 94/57
[2020-05-19 20:05] VITALS: BP 94/54
[2020-05-20] VITALS: BP 100/52
[2020-05-20 04:00] VITALS: BP 92/61
[2020-05-20 07:55] LABS: HEMATOCRIT 44.1 % (37.0-47.0); HEMOGLOBIN 13.9 G/DL (12.0-16.0); MEAN CORPUSCULAR VOLUME 105 FL (80-99); PLATELET COUNT 84 K/UL (150-450); RED BLOOD COUNT 4.22 M/UL (4.20-5.40); RED CELL DISTRIBUTION WIDTH 13.6 % (11.6-14.8); WHITE BLOOD COUNT 12.9 K/UL (4.8-10.8)
[2020-05-20 08:00] VITALS: BP 90/55
[2020-05-20 08:11] LABS: CALCIUM 8.6 MG/DL (8.5-10.1); CREATININE 3.5 MG/DL (0.55-1.30); POTASSIUM 3.8 MMOL/L (3.5-5.1)
[2020-05-20] MEDS: Lisinopril 20mg tab ORAL SCH (08:31)
[2020-05-20] MEDS: Heparin 5000 units/ml inj SUBQ SCH ×2 (08:32→20:02)
[2020-05-20] MEDS: Depakote 125mg Sprinkles ORAL SCH (08:33)
--- NOTE | 2020-05-20 09:57 | Pulmonology Progress Note ---
Subjective Constitutional: Denies: fever Gastrointestinal/Abdominal: Denies: nausea, vomiting, diarrhea Psychiatric: Denies: depression Skin: Denies: rash Musculoskeletal: Denies: pain Allergies: Coded Allergies: No Known Allergies (Unverified , 05/05/20) Subjective still with leuk started on abx for presumed UTI creat up to 3.5 hyper Na corrected not eating pulse ox stable on RA remains afebrile, no signs of resp distress repeated COVID 19 x2 NGT Objective Last 24 Hour Vital Signs Date Time Temp Pulse Resp B/P (MAP) Pulse Ox O2 Delivery O2 Flow Rate FiO2 05/20/20 09:00 Room Air 05/20/20 08:31 90/56 05/20/20 08:29 79 90/55 05/20/20 08:00 98.1 79 20 90/55 (67) 98 05/20/20 04:00 97.2 83 18 92/61 (71) 94 05/20/20 00:00 97.4 76 16 100/52 (68) 93 05/19/20 21:00 Room Air 05/19/20 20:05 97.6 81 17 94/54 (67) 94 05/19/20 17:01 97.2 85 16 94/57 (69) 94 05/19/20 16:00 97.7 92 16 83/51 (62) 94 05/19/20 12:00 97.7 97 16 98/62 (74) 94 Intake and Output 05/19/20 05/20/20 19:00 07:00 Intake Total 1325 ml 1220 ml Output Total 30 ml Balance 1295 ml 1220 ml Intake Oral 20 ml IV Total 1325 ml 1200 ml Output Urine Total 30 ml # Voids 1 Objective General Appearance: no apparent distress, awake, demented, calm Lines, tubes and drains: peripheral HEENT: normocephalic, atraumatic, anicteric, mucous membranes moist Neck: non-tender, supple Respiratory/Chest: chest wall non-tender, lungs clear, no respiratory distress, no accessory muscle use Cardiovascular/Chest: normal rate, occas low tachy 105 -108 Abdomen: normal bowel sounds, non tender, soft Genitourinary/Rectal: no CVAT Extremities: no calf tenderness, normal capillary refill, no edema Neurologic: alert , confused , no gross focal Musculoskeletal: atrophy Microbiology Date/Time Source Procedure Growth Status 05/19/20 11:45 Straight Cath Urine Culture - Preliminary NO GROWTH Resulted Laboratory Tests 05/19/20 11:45: Urine Color Yellow, Urine Appearance Slightly cloudy, Urine pH 5, Urine Specific [place] 1.025, Urine Protein 2+H, Urine Glucose (UA) Negative, Urine Ketones 1+H , Urine Blood 4+H, Urine Nitrite Negative, Urine Bilirubin Negative, Urine Urobilinogen Normal, Urine Leukocyte Esterase 3+H, Urine RBC 2-4H, Urine WBC 20- 30H, Urine Squamous Epithelial Cells Few, Urine Bacteria ModerateH 05/20/20 06:45: White Blood Count 12.9H, Red Blood Count 4.22, Hemoglobin 13.9, Hematocrit 44.1, Mean Corpuscular Volume 105H, Mean Corpuscular Hemoglobin 33.0H, Mean Corpuscular Hemoglobin Concent 31.6L, Red Cell Distribution Width 13.6, Platelet Count 84L, Mean Platelet Volume 9.5, Neutrophils (%) (Auto) , Lymphocytes (%) (Auto) , Monocytes (%) (Auto) , Eosinophils (%) (Auto) , Basophils (%) (Auto) , Differential Total Cells Counted 100, Neutrophils % (Manual) 74, Lymphocytes % (Manual) 18L, Monocytes % (Manual) 6, Eosinophils % (Manual) 0, Basophils % (Manual) 0, Band Neutrophils 2, Platelet Estimate DecreasedL, Platelet Morphology Normal, Macrocytosis 1+, Sodium Level 145, Potassium Level 3.8, Chloride Level 108H, Carbon Dioxide Level 25, Anion Gap 12, Blood Urea Nitrogen 92H, Creatinine 3.5H, Estimat Glomerular Filtration Rate 12.5, Glucose Level 156H, Calcium Level 8.6 Current Medications Medications (Trade) Dose Ordered Sig/Trina Route PRN Reason Start Time Stop Time Status Last Admin Dose Admin Acetaminophen (Tylenol) 650 mg Q4H PRN ORAL Temp >100.5 05/06/20 00:15 06/05/20 00:14 Albuterol Sulfate (Proventil MDI) 2 puff Q4H PRN INH Shortness of Breath 05/06/20 12:00 08/04/20 11:59 Amlodipine Besylate (Norvasc) 5 mg DAILY ORAL 05/15/20 09:00 06/14/20 08:59 05/18/20 09:00 Ceftriaxone Sodium 1 gm/ Dextrose 55 ml @ 110 mls/hr Q24H IVPB 05/19/20 13:00 05/26/20 12:59 05/19/20 13:22 Dextrose/Sodium Chloride 1,000 ml @ 125 mls/hr Q8H IV 05/20/20 08:45 06/19/20 08:44 Diphenhydramine HCl (Benadryl) 25 mg Q6H PRN ORAL Itching 05/06/20 00:15 06/05/20 00:14 Divalproex Sodium (Depakote Sprinkles) 125 mg DAILY ORAL 05/06/20 09:00 06/05/20 08:59 05/20/20 08:33 Heparin Sodium (Porcine) (Heparin 5000 units/ml) 5,000 units EVERY 12 HOURS SUBQ 05/06/20 09:00 06/20/20 08:59 05/18/20 20:13 Lisinopril (PriniviL) 40 mg DAILY ORAL 05/06/20 09:00 06/05/20 08:59 05/18/20 09:00 Ondansetron HCl (Zofran) 4 mg Q6H PRN IVP Nausea & Vomiting 05/06/20 00:15 06/05/20 00:14 Assessment/Plan Assessment/Plan ASSESSMENT COVID 19 infection Complicated UTI with diarrhea and generalized weakness GP Bacteremia - ? real vs contamination -likely contaminant KAMI Dehydration Hyper Na due to dehydration Hypertension Hyperlipidemia Dementia Protein calorie malnutrition Thrombocytopenia - PLAN OF CARE [facility] floor IVF with D51/4 NS Na corrected UA+pyuria; started empiric Rocephin UCX NGTD creat trending up renal US nephro consult hold dc not eating, family up to date declined G tube, will discuss again resp status stable , pulse oximetry remains stable on RA; CXR no acute CP pathology hold off on steroids and abx for PNA, Remdesivivr not indicated in this case ID follows CRP NGT, D dimer 2.3, LDH -219 and ferritin 235; both stable IL6 still pending -probably never sent follow up CXR 05/10 - no acute CP pathology Albuterol via MDI prn DVT prophylaxis Venous Duplex BLE 05/15 NGT UA c/w with probable UTI UCX + E coli , completed Ceftin BCX with Staph hominis likely contaminant, off Zyvox repeated rapid COVID 19 05/08 and 05/09 both NGT gentle IV hydration -dc monitor volumes, renal parameters, lytes BP management with ANJALI BSSE aspiration precautions push oral fluids protean supplements as per RD recs monitor counts, hold Heparin if PLT < 90 DNR/DNI status cancel dc for today case discussed and evaluated by supervising physician Liseth Miranda NP May 20, 2020 09:57
[2020-05-20] MEDS: D5 1/4NS 1000ml 1,000 ML IV SCH ×2 (10:04→16:49)
--- NOTE | 2020-05-20 10:35 | Consultation ---
Consult Note Consult Note asked to eval for KAMI Day 15 of hospitalization here at [facility] 84 years old female with past medical history of hypertension, hyperlipidemia, dementia, resident of assisted living, presented secondary to positive coronavirus testing. At the facility they were unable to take care of patient with Covid. Upon evaluation patient was not able to describe any complaints. She had one episode of diarrhea at the facility. Upon evaluation she was afebrile pulse oximetry was stable on room air her vital signs were stable. Rapid COVID-19 in the emergency room occult was positive. Chest x-ray revealed minor area of atelectasis in both lung bases no evidence of pneumonia no pleural fluid collection. Laboratory work-up revealed no leukocytosis stable hemoglobin hematocrit count 137 yesterday but this morning 228. Stable electrolytes. BUN 31, creatinine 1.2. Albumin 3.8. D-dimer 2.3. Urinalysis revealed +2 protein plus for blood positive for nitrate leukocyte esterase pyuria and many bacteria. Patient subsequently admitted to medical surgical floor for further management. Allergies: No Known Allergies (Unverified , 05/05/20) COVID-19 Screening Contact w/high risk pt: No Experienced COVID-19 symptoms?: Yes Coronavirus symptoms experienc: Diarrhea Divalproex Sodium* (Depakote*), 125 MG PO DAILY, (Reported) Lisinopril* (Lisinopril*), 40 MG ORAL DAILY, (Reported) Losartan Potassium* (Losartan Potassium*), 20 MG ORAL DAILY, (Reported) Since seen and examined Discussed with RN General Appearance: no apparent distress, awake, demented, calm Lines, tubes and drains: peripheral HEENT: normocephalic, atraumatic, anicteric, mucous membranes moist Neck: non-tender, supple Respiratory/Chest: chest wall non-tender, lungs clear, no respiratory distress, no accessory muscle use Cardiovascular/Chest: normal rate, occas low tachy 105 -108 Abdomen: normal bowel sounds, non tender, soft Genitourinary/Rectal: no CVAT Extremities: no calf tenderness, normal capillary refill, no edema Neurologic: alert , confused , no gross focal Musculoskeletal: atrophy . Assessment/Plan Impression: Acute renal failure, Dehydration DNR/DNI Hypotension COVID-19 infection UTI History of hypertension Dementia Suggestion: Christianson catheter IV fluid Hold Norvasc and lisinopril Urine studies Monitor renal parameters I spent an additional 36 minutes on review of medical records including prior hospital records,consult notes, progress notes, procedures ,imaging labs, hem odynamics, and other clinical documentation. Over 35 min Bridger Michel MD May 20, 2020 10:35
[2020-05-20 11:20] LABS: ALANINE AMINOTRANSFERASE 52 U/L (12-78); ALKALINE PHOSPHATASE 40 U/L (46-116); ASPARTATE AMINO TRANSFERASE 47 U/L (15-37); BILIRUBIN,DIRECT 0.1 MG/DL (0.0-0.3); BILIRUBIN,TOTAL 0.5 MG/DL (0.2-1.0); CREATINE KINASE 285 U/L (26-308); GAMMA GLUTAMYL TRANSPEPTIDASE 16 U/L (5-85); PHOSPHORUS 4.1 MG/DL (2.5-4.9)
[2020-05-20 12:00] VITALS: BP 90/57
[2020-05-20] MEDS ORDERED: HydrALAZINE 25mg tab ORAL PRN (12:30)
[2020-05-20] MEDS ORDERED: Albumin Human 5% 250ml IV ONE (12:30)
[2020-05-20] MEDS: cefTRIAXone 1 GM in D5W 55 ML IVPB SCH (12:36)
[2020-05-20] MEDS ORDERED: Albumin Human 5% 500ml IV ONE (13:30)
[2020-05-20 16:00] VITALS: BP 127/67
--- NOTE | 2020-05-20 17:48 | Surgery Progress Note ---
Surgery Progress Note Subjective Additional Comments labs noted micro reviewed exam stable no n/v Objective Last 24 Hour Vital Signs Date Time Temp Pulse Resp B/P (MAP) Pulse Ox O2 Delivery O2 Flow Rate FiO2 05/20/20 16:00 97.8 89 16 127/67 (87) 96 05/20/20 12:00 97.8 84 16 90/57 (68) 94 05/20/20 09:00 Room Air 05/20/20 08:31 90/56 05/20/20 08:29 79 90/55 05/20/20 08:00 98.1 79 20 90/55 (67) 98 05/20/20 04:00 97.2 83 18 92/61 (71) 94 05/20/20 00:00 97.4 76 16 100/52 (68) 93 05/19/20 21:00 Room Air 05/19/20 20:05 97.6 81 17 94/54 (67) 94 I&O Intake and Output 05/19/20 05/20/20 19:00 07:00 Intake Total 1325 ml 1220 ml Output Total 30 ml Balance 1295 ml 1220 ml Intake Oral 20 ml IV Total 1325 ml 1200 ml Output Urine Total 30 ml # Voids 1 Dressing: saturated Cardiovascular: RSR Respiratory: decreased breath sounds Abdomen: non-tender, present bowel sounds, non-distended Extremities: no tenderness, no cyanosis Laboratory Tests Test 05/20/20 06:45 05/20/20 10:22 White Blood Count 12.9 K/UL (4.8-10.8) H Red Blood Count 4.22 M/UL (4.20-5.40) Hemoglobin 13.9 G/DL (12.0-16.0) Hematocrit 44.1 % (37.0-47.0) Mean Corpuscular Volume 105 FL (80-99) H Mean Corpuscular Hemoglobin 33.0 PG (27.0-31.0) H Mean Corpuscular Hemoglobin Concent 31.6 G/DL (32.0-36.0) L Red Cell Distribution Width 13.6 % (11.6-14.8) Platelet Count 84 K/UL (150-450) L Mean Platelet Volume 9.5 FL (6.5-10.1) Neutrophils (%) (Auto) % (45.0-75.0) Lymphocytes (%) (Auto) % (20.0-45.0) Monocytes (%) (Auto) % (1.0-10.0) Eosinophils (%) (Auto) % (0.0-3.0) Basophils (%) (Auto) % (0.0-2.0) Differential Total Cells Counted 100 Neutrophils % (Manual) 74 % (45-75) Lymphocytes % (Manual) 18 % (20-45) L Monocytes % (Manual) 6 % (1-10) Eosinophils % (Manual) 0 % (0-3) Basophils % (Manual) 0 % (0-2) Band Neutrophils 2 % (0-8) Platelet Estimate Decreased L Platelet Morphology Normal Macrocytosis 1+ Sodium Level 145 MMOL/L (136-145) Potassium Level 3.8 MMOL/L (3.5-5.1) Chloride Level 108 MMOL/L (98-107) H Carbon Dioxide Level 25 MMOL/L (21-32) Anion Gap 12 mmol/L (5-15) Blood Urea Nitrogen 92 mg/dL (7-18) H Creatinine 3.5 MG/DL (0.55-1.30) H Estimat Glomerular Filtration Rate 12.5 mL/min (>60) Glucose Level 156 MG/DL (74-106) H Uric Acid 13.8 MG/DL (2.6-7.2) H Calcium Level 8.6 MG/DL (8.5-10.1) Phosphorus Level 4.1 MG/DL (2.5-4.9) Magnesium Level 2.6 MG/DL (1.8-2.4) H Total Bilirubin 0.5 MG/DL (0.2-1.0) Direct Bilirubin 0.1 MG/DL (0.0-0.3) Gamma Glutamyl Transpeptidase 16 U/L (5-85) Aspartate Amino Transf (AST/SGOT) 47 U/L (15-37) H Alanine Aminotransferase (ALT/SGPT) 52 U/L (12-78) Alkaline Phosphatase 40 U/L (46-116) L Total Creatine Kinase 285 U/L (26-308) Total Protein 6.9 G/DL (6.4-8.2) Albumin 3.0 G/DL (3.4-5.0) L Urine Random Sodium 30 mmol/L (20-110) Plan Problems: (1) Incontinence associated dermatitis Assessment & Plan: Patient identified admission to have incontinence associated and tightness around the sacral region. There is skin breakdown in the sacral cleft as well as the bilateral buttock and the sacral periwound with mild maceration of the epidermis but no open lesions. Patient is recently having diarrhea and at high risk for further breakdown. BMI of 29 albumin of 3.8 as the patient does have fairly good nutritional status at this time. To ensure that patient does not have further breakdown or opening of the skin will monitor for incontinence/diarrhea and treat accordingly. In the meantime continue with nutritional optimization as well as turning patient every 2 hours offloading pressure with pillows. Wash wounds daily with normal saline apply OPTi foam dressing to the sacral area okay to change every 3 days with skin protectant unless there is incontinence at which time change accordingly. Thank you will follow with recommendations DAILY ESTIMATED NEEDS: Needs based on cardiac/ 62.5kg abw 25-30 kcals/kg 8622-1784 total kcals 1-1.3 g protein/kg 62-81 g total protein 25-30 mL/kg 5231-8273 total fluid mLs NUTRITION DIAGNOSIS: Inadequate oral intake R/T decreased appetite, decreased cognitive fxn, clinical condition as evidenced by refusing most meals, h/o dementia, recent COVID-19+. (CURRENT DIET:REGULAR/ SOFT) PO DIET RECOMMENDATIONS--->>> Maintain liberalized regular/ texture as tolerated ENTERAL NUTRITION RECOMMENDATIONS: * consider non oral feeds if part of POC * ADDITIONAL RECOMMENDATIONS: * Calibrated bedscale wt: daily wts w/ variance 70's -> 97kg this AM * Consider appetite stimulant due to consistently poor PO * Monitor hydration status: poor PO, no IV access * Monitor lytes, replete as needed * Wound healing: MVI x 1, Vit C 250mg QD Abisai BID as tolerated * Ensure Enlive TID w/ meals for now, monitor acceptance (2) COVID-19 Assessment & Plan: COVID + ID input noted appreciated The cardiac and mediastinal silhouettes are unremarkable. Minor scattered areas of atelectasis in both lung bases. Negative for pneumothorax or pleural fluid collections. (3) Acute renal failure Jeramy Rhodes May 20, 2020 17:48
[2020-05-20 20:00] VITALS: BP 84/53
[2020-05-21] VITALS: BP 151/67
[2020-05-21] MEDS: D5 1/4NS 1000ml 1,000 ML IV SCH ×3 (02:30→18:02)
[2020-05-21 04:00] VITALS: BP 158/67
[2020-05-21 08:00] VITALS: BP 120/63
--- NOTE | 2020-05-21 08:39 | Diagnostic Imaging Report ---
EXAM: US Retroperitoneal Limited, Renal CLINICAL HISTORY: RENAL-A TECHNIQUE: Real-time limited ultrasound of the retroperitoneum with image documentation. COMPARISON: No relevant prior studies available. FINDINGS: Right kidney: The right kidney measures 9.1 cm. No hydronephrosis or nephrolithiasis. Left kidney: Indeterminate isoechoic left renal lesion measuring 3.9 x 3.9 cm. This should be correlated with CT urogram protocol. CT urogram protocol will also evaluate for the suspected renal calculi. The left kidney measures 9.2 cm. No definite hydronephrosis. Bladder: The prevoid bladder volume is 80 mL. Postvoid residual was not assessed. No bladder wall thickening of bladder debris. Other findings: Echogenic focus in the left lower pole measures 8 mm and may correlate with a nonobstructing calculus. IMPRESSION: 1. Echogenic focus in the left lower pole measures 8 mm and may correlate with a nonobstructing calculus. 2. Indeterminate isoechoic left renal lesion measuring 3.9 x 3.9 cm. This should be correlated with CT urogram protocol. CT urogram protocol will also evaluate for the suspected renal calculi. 3. The prevoid bladder volume is 80 mL. Postvoid residual was not assessed.
[2020-05-21] MEDS: Heparin 5000 units/ml inj SUBQ SCH ×2 (09:00→20:50)
[2020-05-21 09:01] LABS: HEMOGLOBIN 12.7 G/DL (12.0-16.0); MEAN CORPUSCULAR VOLUME 105 FL (80-99); PLATELET COUNT 80 K/UL (150-450); RED BLOOD COUNT 3.82 M/UL (4.20-5.40); RED CELL DISTRIBUTION WIDTH 13.3 % (11.6-14.8); WHITE BLOOD COUNT 11.2 K/UL (4.8-10.8)
[2020-05-21 09:32] LABS: ALANINE AMINOTRANSFERASE 37 U/L (12-78); ALBUMIN 3.3 G/DL (3.4-5.0); ALBUMIN/GLOBULIN RATIO 0.9 (1.0-2.7); ALKALINE PHOSPHATASE 37 U/L (46-116); ANION GAP 8 mmol/L (5-15); ASPARTATE AMINO TRANSFERASE 32 U/L (15-37); BILIRUBIN,TOTAL 0.4 MG/DL (0.2-1.0); BLOOD UREA NITROGEN 67 mg/dL (7-18); CALCIUM 8.9 MG/DL (8.5-10.1); CARBON DIOXIDE 27 MMOL/L (21-32); CHLORIDE 108 MMOL/L (98-107); CHOLESTEROL 204 MG/DL (< 200); CREATINE KINASE 358 U/L (26-308); CREATININE 1.9 MG/DL (0.55-1.30); FERRITIN 319 NG/ML (8-388); GAMMA GLUTAMYL TRANSPEPTIDASE 10 U/L (5-85); HDL CHOLESTEROL 14 MG/DL (40-60); LACTATE DEHYDROGENASE 215 U/L (81-234); POTASSIUM 3.3 MMOL/L (3.5-5.1); SODIUM 143 MMOL/L (136-145); TRIGLYCERIDES 269 MG/DL (30-150)
--- NOTE | 2020-05-21 10:11 | Pulmonology Progress Note ---
Subjective Constitutional: Denies: fever Gastrointestinal/Abdominal: Denies: nausea, vomiting, diarrhea Psychiatric: Denies: depression Skin: Denies: rash Musculoskeletal: Denies: pain Allergies: Coded Allergies: No Known Allergies (Unverified , 05/05/20) Subjective still with leuk , no fevers UCX + GNR 10-20 K creat improving, this am 1.9 K-3.3 PLT down to 80 pulse ox stable on RA remains afebrile, no signs of resp distress repeated COVID 19 x2 NGT Objective Last 24 Hour Vital Signs Date Time Temp Pulse Resp B/P (MAP) Pulse Ox O2 Delivery O2 Flow Rate FiO2 05/21/20 04:00 97.0 85 18 158/67 (97) 96 05/21/20 00:00 97.7 81 18 151/67 (95) 99 05/20/20 21:00 Room Air 05/20/20 20:00 97.3 84 18 84/53 (63) 99 05/20/20 16:00 97.8 89 16 127/67 (87) 96 05/20/20 12:00 97.8 84 16 90/57 (68) 94 Intake and Output 05/20/20 05/21/20 19:00 07:00 Intake Total 225 ml 1250 ml Output Total 300 ml 650 ml Balance -75 ml 600 ml Intake Oral 100 ml IV Total 125 ml 1250 ml Output Urine Total 300 ml 650 ml # Bowel Movements 1 Objective General Appearance: no apparent distress, awake, demented, calm Lines, tubes and drains: peripheral HEENT: normocephalic, atraumatic, anicteric, mucous membranes moist Neck: non-tender, supple Respiratory/Chest: chest wall non-tender, lungs clear, no respiratory distress, no accessory muscle use Cardiovascular/Chest: normal rate, occas low tachy 105 -108 Abdomen: normal bowel sounds, non tender, soft Genitourinary/Rectal: no CVAT Extremities: no calf tenderness, normal capillary refill, no edema Neurologic: alert , confused , no gross focal Musculoskeletal: atrophy Microbiology Date/Time Source Procedure Growth Status 05/19/20 11:45 Straight Cath Urine Culture - Preliminary Gram Negative Deepak Resulted Laboratory Tests 05/20/20 10:22: Urine Random Sodium 30 05/21/20 08:15: White Blood Count 11.2H, Red Blood Count 3.82L, Hemoglobin 12.7, Hematocrit 40.0, Mean Corpuscular Volume 105H, Mean Corpuscular Hemoglobin 33.1H, Mean Corpuscular Hemoglobin Concent 31.7L, Red Cell Distribution Width 13.3, Platelet Count 80L, Mean Platelet Volume 9.8, Neutrophils (%) (Auto) , Lymphocytes (%) (Auto) , Monocytes (%) (Auto) , Eosinophils (%) (Auto) , Basophils (%) (Auto) , Differential Total Cells Counted 100, Neutrophils % (Manual) 72, Lymphocytes % (Manual) 20, Monocytes % (Manual) 8, Eosinophils % (Manual) 0, Basophils % (Manual) 0, Band Neutrophils 0, Platelet Estimate DecreasedL, Platelet Morphology Normal, Macrocytosis 1+, Sodium Level 143, Potassium Level 3.3L, Chloride Level 108H, Carbon Dioxide Level 27, Anion Gap 8, Blood Urea Nitrogen 67H, Creatinine 1.9H, Estimat Glomerular Filtration Rate 25.2, Glucose Level 132H, Uric Acid 10.8H, Calcium Level 8.9, Phosphorus Level 3.0, Magnesium Level 2.5H, Iron Level [Pending], Unsaturated Iron Binding [Pending], Ferritin 319, Total Bilirubin 0.4, Gamma Glutamyl Transpeptidase 10, Aspartate Amino Transf (AST/SGOT) 32, Alanine Aminotransferase (ALT/SGPT) 37, Alkaline Phosphatase 37L, Lactate Dehydrogenase 215, Total Creatine Kinase 358H, C-Reactive Protein, Quantitative 4.1H, Pro-B-Type Natriuretic Peptide [Pending], Total Protein 6.9, Albumin 3.3L, Globulin 3.6, Albumin/Globulin Ratio 0.9L, Triglycerides Level 269H, Cholesterol Level 204H, LDL Cholesterol 127H, HDL Cholesterol 14L, Cholesterol/HDL Ratio 14.6H, Vitamin B12 Level [Pending], Folate [Pending], Thyroid Stimulating Hormone (TSH) 0.825 Current Medications Medications (Trade) Dose Ordered Sig/Trina Route PRN Reason Start Time Stop Time Status Last Admin Dose Admin Acetaminophen (Tylenol) 650 mg Q4H PRN ORAL Temp >100.5 05/06/20 00:15 06/05/20 00:14 Albuterol Sulfate (Proventil MDI) 2 puff Q4H PRN INH Shortness of Breath 05/06/20 12:00 08/04/20 11:59 Ceftriaxone Sodium 1 gm/ Dextrose 55 ml @ 110 mls/hr Q24H IVPB 05/19/20 13:00 05/26/20 12:59 05/20/20 12:36 Dextrose/Sodium Chloride 1,000 ml @ 125 mls/hr Q8H IV 05/20/20 08:45 06/19/20 08:44 05/21/20 02:30 Diphenhydramine HCl (Benadryl) 25 mg Q6H PRN ORAL Itching 05/06/20 00:15 06/05/20 00:14 Divalproex Sodium (Depakote Sprinkles) 125 mg DAILY ORAL 05/06/20 09:00 06/05/20 08:59 05/20/20 08:33 Heparin Sodium (Porcine) (Heparin 5000 units/ml) 5,000 units EVERY 12 HOURS SUBQ 05/06/20 09:00 06/20/20 08:59 05/18/20 20:13 Hydralazine HCl (Apresoline) 25 mg Q4HR PRN ORAL BP over 160 systolic 05/20/20 12:30 08/18/20 12:29 Ondansetron HCl (Zofran) 4 mg Q6H PRN IVP Nausea & Vomiting 05/06/20 00:15 06/05/20 00:14 Potassium Phosphate 20 mm/ Sodium Chloride 281.6667 ml @ 46.944 m... ONCE ONCE IV 05/21/20 11:00 05/21/20 16:59 Assessment/Plan Assessment/Plan ASSESSMENT COVID 19 infection Complicated UTI with diarrhea and generalized weakness GP Bacteremia - ? -likely contaminant KAMI Dehydration Hyper Na due to dehydration -resolved Hypertension Hyperlipidemia Dementia Protein calorie malnutrition Thrombocytopenia - PLAN OF CARE [facility] floor IVF with D51/4 NS Na corrected UA+pyuria; started empiric Rocephin UCX 10-20 K GNR nephro eval appreciated IV hydration continue creat trending down now renal US noted -> no hydro, no stones monitor PLT counts( Heparin on hold), ? 2 to ceftriaxone ( trend dowm started with initiation), discussed with ID, will consider changing abx dc was hold due tp ARF, leukocytosis and not eating, family up to date declined G tube, will discuss again resp status stable , pulse oximetry remains stable on RA; CXR no acute CP pathology hold off on steroids and abx for PNA, Remdesivivr not indicated in this case ID follows CRP NGT, D dimer 2.3, LDH -219 and ferritin 235; both stable IL6 still pending -probably never sent follow up CXR 05/10 - no acute CP pathology Albuterol via MDI prn DVT prophylaxis Venous Duplex BLE 05/15 NGT UA c/w with probable UTI UCX + E coli , completed Ceftin BCX with Staph hominis likely contaminant, off Zyvox repeated rapid COVID 19 05/08 and 05/09 both NGT gentle IV hydration -dc monitor volumes, renal parameters, lytes BP management with ANJALI BSSE aspiration precautions push oral fluids protean supplements as per RD recs monitor counts, hold Heparin if PLT < 90 DNR/DNI status cancel dc for today case discussed and evaluated by supervising physician Liseth Miranda NP May 21, 2020 10:11
[2020-05-21] MEDS: Depakote 125mg Sprinkles ORAL SCH (10:24)
[2020-05-21 10:58] LABS: % IRON SATURATION 18 % (15-50); IRON 29 ug/dL (50-175); TOTAL IRON BINDING CAPACITY 158 ug/dL (250-450)
[2020-05-21] MEDS ORDERED: Potassium Phosphate 20 MM in NS 275 ML IV ONE (11:00)
[2020-05-21 12:00] VITALS: BP 107/60
--- NOTE | 2020-05-21 12:33 | Nephrology Progress Note ---
Assessment/Plan Problem List: (1) Acute renal failure (2) COVID-19 (3) Dehydration (4) Hypotension Assessment Acute renal failure, Dehydration DNR/DNI Hypotension COVID-19 infection UTI History of hypertension Dementia Plan May 21: Renal parameters are improved with hydration. Abnormal electrolytes addressed. Continue per current management. Continue to monitor renal parameters. Blood pressure improved. Will resume some of the blood pressure medications. May 20: Christianson catheter IV fluid Hold Norvasc and lisinopril Urine studies Monitor renal parameters Subjective ROS Limited/Unobtainable: No Constitutional: Reports: malaise, other - More responsive Objective Objective Last 24 Hour Vital Signs Date Time Temp Pulse Resp B/P (MAP) Pulse Ox O2 Delivery O2 Flow Rate FiO2 05/21/20 04:00 97.0 85 18 158/67 (97) 96 05/21/20 00:00 97.7 81 18 151/67 (95) 99 05/20/20 21:00 Room Air 05/20/20 20:00 97.3 84 18 84/53 (63) 99 05/20/20 16:00 97.8 89 16 127/67 (87) 96 Intake and Output 05/20/20 05/21/20 19:00 07:00 Intake Total 225 ml 1250 ml Output Total 300 ml 650 ml Balance -75 ml 600 ml Intake Oral 100 ml IV Total 125 ml 1250 ml Output Urine Total 300 ml 650 ml # Bowel Movements 1 Current Medications Medications (Trade) Dose Ordered Sig/Trina Route PRN Reason Start Time Stop Time Status Last Admin Dose Admin Acetaminophen (Tylenol) 650 mg Q4H PRN ORAL Temp >100.5 05/06/20 00:15 06/05/20 00:14 Albuterol Sulfate (Proventil MDI) 2 puff Q4H PRN INH Shortness of Breath 05/06/20 12:00 08/04/20 11:59 Ceftriaxone Sodium 1 gm/ Dextrose 55 ml @ 110 mls/hr Q24H IVPB 05/19/20 13:00 05/26/20 12:59 05/20/20 12:36 Dextrose/Sodium Chloride 1,000 ml @ 125 mls/hr Q8H IV 05/20/20 08:45 06/19/20 08:44 05/21/20 02:30 Diphenhydramine HCl (Benadryl) 25 mg Q6H PRN ORAL Itching 05/06/20 00:15 06/05/20 00:14 Divalproex Sodium (Depakote Sprinkles) 125 mg DAILY ORAL 05/06/20 09:00 06/05/20 08:59 05/21/20 10:24 Heparin Sodium (Porcine) (Heparin 5000 units/ml) 5,000 units EVERY 12 HOURS SUBQ 05/06/20 09:00 06/20/20 08:59 05/18/20 20:13 Hydralazine HCl (Apresoline) 25 mg Q4HR PRN ORAL BP over 160 systolic 05/20/20 12:30 08/18/20 12:29 Ondansetron HCl (Zofran) 4 mg Q6H PRN IVP Nausea & Vomiting 05/06/20 00:15 06/05/20 00:14 Potassium Phosphate 20 mm/ Sodium Chloride 281.6667 ml @ 46.944 m... ONCE ONCE IV 05/21/20 11:00 05/21/20 16:59 05/21/20 12:09 Laboratory Tests 05/21/20 08:15: White Blood Count 11.2H, Red Blood Count 3.82L, Hemoglobin 12.7, Hematocrit 40.0, Mean Corpuscular Volume 105H, Mean Corpuscular Hemoglobin 33.1H, Mean Corpuscular Hemoglobin Concent 31.7L, Red Cell Distribution Width 13.3, Platelet Count 80L, Mean Platelet Volume 9.8, Neutrophils (%) (Auto) , Lymphocytes (%) (Auto) , Monocytes (%) (Auto) , Eosinophils (%) (Auto) , Basophils (%) (Auto) , Differential Total Cells Counted 100, Neutrophils % (Manual) 72, Lymphocytes % (Manual) 20, Monocytes % (Manual) 8, Eosinophils % (Manual) 0, Basophils % (Manual) 0, Band Neutrophils 0, Platelet Estimate DecreasedL, Platelet Morphology Normal, Macrocytosis 1+, Sodium Level 143, Potassium Level 3.3L, Chloride Level 108H, Carbon Dioxide Level 27, Anion Gap 8, Blood Urea Nitrogen 67H, Creatinine 1.9H, Estimat Glomerular Filtration Rate 25.2, Glucose Level 132H, Uric Acid 10.8H, Calcium Level 8.9, Phosphorus Level 3.0, Magnesium Level 2.5H, Iron Level 29L, Total Iron Binding Capacity 158L, Percent Iron Saturation 18, Unsaturated Iron Binding 129, Ferritin 319, Total Bilirubin 0.4, Gamma Glutamyl Transpeptidase 10, Aspartate Amino Transf (AST/SGOT) 32, Alanine Aminotransferase (ALT/SGPT) 37, Alkaline Phosphatase 37L, Lactate Dehydrogenase 215, Total Creatine Kinase 358H, C-Reactive Protein, Quantitative 4.1H, Pro-B-Type Natriuretic Peptide 120, Total Protein 6.9, Albumin 3.3L, Globulin 3.6, Albumin/Globulin Ratio 0.9L, Triglycerides Level 269H, Cholesterol Level 204H, LDL Cholesterol 127H, HDL Cholesterol 14L, Cholesterol/HDL Ratio 14.6H, Vitamin B12 Level 569, Folate 8.9, Thyroid Stimulating Hormone (TSH) 0.825 Height (Feet): 5 Height (Inches): 5.00 Weight (Pounds): 175 General Appearance: no apparent distress, lethargic Cardiovascular: normal rate - 80s Respiratory/Chest: decreased breath sounds Abdomen: distended Bridger Michel MD May 21, 2020 12:33
--- NOTE | 2020-05-21 13:47 | Infectious Diseases Prog Note ---
Assessment/Plan Assessment/Plan ASSESSMENT AND PLAN: 1. 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 recurrent gram neg uti - ceftriaxone - monitor labs - doubt low platelets secondary to ceftriaxone 2. COVID-19 infection. Continue isolation. There is no indication for remdesivir or dexamethasone at this time. Saturation is 96% on room air without any respiratory symptoms - f/u rapid test neg x 2, consider discontinue isolation 3. Patient has history of hypertension. 4. Dementia. 5. Blood pressure treatment per primary care team. 6. Dyslipidemia. 7. Thrombocytopenia. 8. Dehydration. 9. IV fluids. 10. Continue treatment per primary consultants. 11. No known drug allergies. 12. Social history is negative. 13. Family history is noncontributory. 14. MAR is noted. 15. Case was discussed with RN. Subjective Allergies: Coded Allergies: No Known Allergies (Unverified , 05/05/20) Objective Last 24 Hour Vital Signs Date Time Temp Pulse Resp B/P (MAP) Pulse Ox O2 Delivery O2 Flow Rate FiO2 05/21/20 04:00 97.0 85 18 158/67 (97) 96 05/21/20 00:00 97.7 81 18 151/67 (95) 99 05/20/20 21:00 Room Air 05/20/20 20:00 97.3 84 18 84/53 (63) 99 05/20/20 16:00 97.8 89 16 127/67 (87) 96 Height (Feet): 5 Height (Inches): 5.00 Weight (Pounds): 175 Chest x-ray - 05/05/20 - EXAM: XR Chest, 1 View CLINICAL HISTORY: SOB TECHNIQUE: Frontal view of the chest. COMPARISON: No relevant prior studies available. FINDINGS: The cardiac and mediastinal silhouettes are unremarkable. Minor scattered areas of atelectasis in both lung bases. Negative for pneumothorax or pleural fluid collections. Chest x-ray - 05/10/20 - Procedure: XRAY Chest 1v Indication: Shortness of breath Technique: One view of the chest Comparison: 05/05/2020 Findings: Lungs and pleural spaces are clear. Heart size is normal. No significant change Impression: No acute process Microbiology Date/Time Source Procedure Growth Status 05/19/20 11:45 Straight Cath Urine Culture - Preliminary Gram Negative Deepak Resulted Laboratory Tests Test 05/21/20 08:15 White Blood Count 11.2 K/UL (4.8-10.8) H Red Blood Count 3.82 M/UL (4.20-5.40) L Hemoglobin 12.7 G/DL (12.0-16.0) Hematocrit 40.0 % (37.0-47.0) Mean Corpuscular Volume 105 FL (80-99) H Mean Corpuscular Hemoglobin 33.1 PG (27.0-31.0) H Mean Corpuscular Hemoglobin Concent 31.7 G/DL (32.0-36.0) L Red Cell Distribution Width 13.3 % (11.6-14.8) Platelet Count 80 K/UL (150-450) L Mean Platelet Volume 9.8 FL (6.5-10.1) Neutrophils (%) (Auto) % (45.0-75.0) Lymphocytes (%) (Auto) % (20.0-45.0) Monocytes (%) (Auto) % (1.0-10.0) Eosinophils (%) (Auto) % (0.0-3.0) Basophils (%) (Auto) % (0.0-2.0) Differential Total Cells Counted 100 Neutrophils % (Manual) 72 % (45-75) Lymphocytes % (Manual) 20 % (20-45) Monocytes % (Manual) 8 % (1-10) Eosinophils % (Manual) 0 % (0-3) Basophils % (Manual) 0 % (0-2) Band Neutrophils 0 % (0-8) Platelet Estimate Decreased L Platelet Morphology Normal Macrocytosis 1+ Sodium Level 143 MMOL/L (136-145) Potassium Level 3.3 MMOL/L (3.5-5.1) L Chloride Level 108 MMOL/L (98-107) H Carbon Dioxide Level 27 MMOL/L (21-32) Anion Gap 8 mmol/L (5-15) Blood Urea Nitrogen 67 mg/dL (7-18) H Creatinine 1.9 MG/DL (0.55-1.30) H Estimat Glomerular Filtration Rate 25.2 mL/min (>60) Glucose Level 132 MG/DL (74-106) H Uric Acid 10.8 MG/DL (2.6-7.2) H Calcium Level 8.9 MG/DL (8.5-10.1) Phosphorus Level 3.0 MG/DL (2.5-4.9) Magnesium Level 2.5 MG/DL (1.8-2.4) H Iron Level 29 ug/dL (50-175) L Total Iron Binding Capacity 158 ug/dL (250-450) L Percent Iron Saturation 18 % (15-50) Unsaturated Iron Binding 129 ug/dL (112-346) Ferritin 319 NG/ML (8-388) Total Bilirubin 0.4 MG/DL (0.2-1.0) Gamma Glutamyl Transpeptidase 10 U/L (5-85) Aspartate Amino Transf (AST/SGOT) 32 U/L (15-37) Alanine Aminotransferase (ALT/SGPT) 37 U/L (12-78) Alkaline Phosphatase 37 U/L (46-116) L Lactate Dehydrogenase 215 U/L (81-234) Total Creatine Kinase 358 U/L (26-308) H C-Reactive Protein, Quantitative 4.1 mg/dL (0.00-0.90) H Pro-B-Type Natriuretic Peptide 120 pg/mL (0-125) Total Protein 6.9 G/DL (6.4-8.2) Albumin 3.3 G/DL (3.4-5.0) L Globulin 3.6 g/dL Albumin/Globulin Ratio 0.9 (1.0-2.7) L Triglycerides Level 269 MG/DL (30-150) H Cholesterol Level 204 MG/DL (< 200) H LDL Cholesterol 127 mg/dL (<100) H HDL Cholesterol 14 MG/DL (40-60) L Cholesterol/HDL Ratio 14.6 (3.3-4.4) H Vitamin B12 Level 569 PG/ML (193-986) Folate 8.9 NG/ML (8.6-58.9) Thyroid Stimulating Hormone (TSH) 0.825 uiU/mL (0.358-3.740) Current Medications Medications (Trade) Dose Ordered Sig/Trina Route PRN Reason Start Time Stop Time Status Last Admin Dose Admin Acetaminophen (Tylenol) 650 mg Q4H PRN ORAL Temp >100.5 05/06/20 00:15 06/05/20 00:14 Albuterol Sulfate (Proventil MDI) 2 puff Q4H PRN INH Shortness of Breath 11/8/20 12:00 08/04/20 11:59 Amlodipine Besylate (Norvasc) 2.5 mg BID ORAL 05/21/20 12:45 06/20/20 12:44 Ceftriaxone Sodium 1 gm/ Dextrose 55 ml @ 110 mls/hr Q24H IVPB 05/19/20 13:00 05/26/20 12:59 05/20/20 12:36 Dextrose/Sodium Chloride 1,000 ml @ 75 mls/hr [id number] IV 05/20/20 08:45 06/19/20 08:44 05/21/20 02:30 Diphenhydramine HCl (Benadryl) 25 mg Q6H PRN ORAL Itching 05/06/20 00:15 06/05/20 00:14 Divalproex Sodium (Depakote Sprinkles) 125 mg DAILY ORAL 05/06/20 09:00 06/05/20 08:59 05/21/20 10:24 Heparin Sodium (Porcine) (Heparin 5000 units/ml) 5,000 units EVERY 12 HOURS SUBQ 05/06/20 09:00 06/20/20 08:59 05/18/20 20:13 Hydralazine HCl (Apresoline) 25 mg Q4HR PRN ORAL BP over 160 systolic 05/20/20 12:30 08/18/20 12:29 Ondansetron HCl (Zofran) 4 mg Q6H PRN IVP Nausea & Vomiting 05/06/20 00:15 06/05/20 00:14 Potassium Phosphate 20 mm/ Sodium Chloride 281.6667 ml @ 46.944 m... ONCE ONCE IV 05/21/20 11:00 05/21/20 16:59 05/21/20 12:09 Wale Schofield MD May 21, 2020 13:47
--- NOTE | 2020-05-21 14:04 | Surgery Progress Note ---
Surgery Progress Note Subjective Additional Comments leukocytosis comfortable no n/v labs noted exam stable Objective Last 24 Hour Vital Signs Date Time Temp Pulse Resp B/P (MAP) Pulse Ox O2 Delivery O2 Flow Rate FiO2 05/21/20 04:00 97.0 85 18 158/67 (97) 96 05/21/20 00:00 97.7 81 18 151/67 (95) 99 05/20/20 21:00 Room Air 05/20/20 20:00 97.3 84 18 84/53 (63) 99 05/20/20 16:00 97.8 89 16 127/67 (87) 96 I&O Intake and Output 05/20/20 05/21/20 18:59 06:59 Intake Total 200 ml 1375 ml Output Total 300 ml 650 ml Balance -100 ml 725 ml Intake Oral 100 ml IV Total 100 ml 1375 ml Output Urine Total 300 ml 650 ml # Bowel Movements 1 Dressing: saturated Cardiovascular: RSR Respiratory: decreased breath sounds Abdomen: non-tender, present bowel sounds Extremities: no tenderness, no cyanosis Laboratory Tests Test 05/21/20 08:15 White Blood Count 11.2 K/UL (4.8-10.8) H Red Blood Count 3.82 M/UL (4.20-5.40) L Hemoglobin 12.7 G/DL (12.0-16.0) Hematocrit 40.0 % (37.0-47.0) Mean Corpuscular Volume 105 FL (80-99) H Mean Corpuscular Hemoglobin 33.1 PG (27.0-31.0) H Mean Corpuscular Hemoglobin Concent 31.7 G/DL (32.0-36.0) L Red Cell Distribution Width 13.3 % (11.6-14.8) Platelet Count 80 K/UL (150-450) L Mean Platelet Volume 9.8 FL (6.5-10.1) Neutrophils (%) (Auto) % (45.0-75.0) Lymphocytes (%) (Auto) % (20.0-45.0) Monocytes (%) (Auto) % (1.0-10.0) Eosinophils (%) (Auto) % (0.0-3.0) Basophils (%) (Auto) % (0.0-2.0) Differential Total Cells Counted 100 Neutrophils % (Manual) 72 % (45-75) Lymphocytes % (Manual) 20 % (20-45) Monocytes % (Manual) 8 % (1-10) Eosinophils % (Manual) 0 % (0-3) Basophils % (Manual) 0 % (0-2) Band Neutrophils 0 % (0-8) Platelet Estimate Decreased L Platelet Morphology Normal Macrocytosis 1+ Sodium Level 143 MMOL/L (136-145) Potassium Level 3.3 MMOL/L (3.5-5.1) L Chloride Level 108 MMOL/L (98-107) H Carbon Dioxide Level 27 MMOL/L (21-32) Anion Gap 8 mmol/L (5-15) Blood Urea Nitrogen 67 mg/dL (7-18) H Creatinine 1.9 MG/DL (0.55-1.30) H Estimat Glomerular Filtration Rate 25.2 mL/min (>60) Glucose Level 132 MG/DL (74-106) H Uric Acid 10.8 MG/DL (2.6-7.2) H Calcium Level 8.9 MG/DL (8.5-10.1) Phosphorus Level 3.0 MG/DL (2.5-4.9) Magnesium Level 2.5 MG/DL (1.8-2.4) H Iron Level 29 ug/dL (50-175) L Total Iron Binding Capacity 158 ug/dL (250-450) L Percent Iron Saturation 18 % (15-50) Unsaturated Iron Binding 129 ug/dL (112-346) Ferritin 319 NG/ML (8-388) Total Bilirubin 0.4 MG/DL (0.2-1.0) Gamma Glutamyl Transpeptidase 10 U/L (5-85) Aspartate Amino Transf (AST/SGOT) 32 U/L (15-37) Alanine Aminotransferase (ALT/SGPT) 37 U/L (12-78) Alkaline Phosphatase 37 U/L (46-116) L Lactate Dehydrogenase 215 U/L (81-234) Total Creatine Kinase 358 U/L (26-308) H C-Reactive Protein, Quantitative 4.1 mg/dL (0.00-0.90) H Pro-B-Type Natriuretic Peptide 120 pg/mL (0-125) Total Protein 6.9 G/DL (6.4-8.2) Albumin 3.3 G/DL (3.4-5.0) L Globulin 3.6 g/dL Albumin/Globulin Ratio 0.9 (1.0-2.7) L Triglycerides Level 269 MG/DL (30-150) H Cholesterol Level 204 MG/DL (< 200) H LDL Cholesterol 127 mg/dL (<100) H HDL Cholesterol 14 MG/DL (40-60) L Cholesterol/HDL Ratio 14.6 (3.3-4.4) H Vitamin B12 Level 569 PG/ML (193-986) Folate 8.9 NG/ML (8.6-58.9) Thyroid Stimulating Hormone (TSH) 0.825 uiU/mL (0.358-3.740) Plan Problems: (1) Incontinence associated dermatitis Assessment & Plan: Patient identified admission to have incontinence associated and tightness around the sacral region. There is skin breakdown in the sacral cleft as well as the bilateral buttock and the sacral periwound with mild maceration of the epidermis but no open lesions. Patient is recently having diarrhea and at high risk for further breakdown. BMI of 29 albumin of 3.8 as the patient does have fairly good nutritional status at this time. To ensure that patient does not have further breakdown or opening of the skin will monitor for incontinence/diarrhea and treat accordingly. In the meantime continue with nutritional optimization as well as turning patient every 2 hours offloading pressure with pillows. Wash wounds daily with normal saline apply OPTi foam dressing to the sacral area okay to change every 3 days with skin protectant unless there is incontinence at which time change accordingly. Thank you will follow with recommendations DAILY ESTIMATED NEEDS: Needs based on cardiac/ 62.5kg abw 25-30 kcals/kg 4768-1064 total kcals 1-1.3 g protein/kg 62-81 g total protein 25-30 mL/kg 8864-2389 total fluid mLs NUTRITION DIAGNOSIS: Inadequate oral intake R/T decreased appetite, decreased cognitive fxn, clinical condition as evidenced by refusing most meals, h/o dementia, recent COVID-19+. (CURRENT DIET:REGULAR/ SOFT) PO DIET RECOMMENDATIONS--->>> Maintain liberalized regular/ texture as tolerated ENTERAL NUTRITION RECOMMENDATIONS: * consider non oral feeds if part of POC * ADDITIONAL RECOMMENDATIONS: * Calibrated bedscale wt: daily wts w/ variance 70's -> 97kg this AM * Consider appetite stimulant due to consistently poor PO * Monitor hydration status: poor PO, no IV access * Monitor lytes, replete as needed * Wound healing: MVI x 1, Vit C 250mg QD Abisai BID as tolerated * Ensure Enlive TID w/ meals for now, monitor acceptance (2) COVID-19 Assessment & Plan: COVID + ID input noted appreciated The cardiac and mediastinal silhouettes are unremarkable. Minor scattered areas of atelectasis in both lung bases. Negative for pneumothorax or pleural fluid collections. (3) Acute renal failure (4) Dehydration Assessment & Plan: DAILY ESTIMATED NEEDS: Needs based on cardiac/ 62.5kg abw 25-30 kcals/kg 5045-1380 total kcals 1-1.3 g protein/kg 62-81 g total protein 25-30 mL/kg 0359-4701 total fluid mLs NUTRITION DIAGNOSIS: Inadequate oral intake R/T decreased appetite, decreased cognitive fxn, clinical condition as evidenced by refusing most meals, h/o dementia, recent COVID-19+. CURRENT DIET:REGULAR/ SOFT PO DIET RECOMMENDATIONS: Maintain liberalized regular/ texture as tolerated ENTERAL NUTRITION RECOMMENDATIONS: * consider non oral feeds if part of POC * to provide ADDITIONAL RECOMMENDATIONS: * Calibrated bedscale wt: daily wts w/ variance 70 * Consider appetite stimulant due to consistently poor PO * Monitor hydration status: poor PO, no IV access-> now on IVF * Monitor lytes, replete as needed (low K) * Wound healing: MVI x 1, Vit C 250mg QD Abisai BID as tolerated * Ensure Enlive TID w/ meals for now, monitor acceptance (5) Hypotension GarryshyannbobbiJeramy galindo May 21, 2020 14:04
[2020-05-21] MEDS: cefTRIAXone 1 GM in D5W 55 ML IVPB SCH (15:03)
[2020-05-21 16:00] VITALS: BP 110/67
--- NOTE | 2020-05-21 18:04 | Diagnostic Imaging Report ---
Indication: Shortness of breath Technique: One view of the chest Comparison: 05/10/2020 Findings: Lungs and pleural spaces are clear. Heart size is normal. No significant change Impression: No acute process
[2020-05-21 20:00] VITALS: BP 106/71
[2020-05-22] VITALS: BP 106/70
[2020-05-22 04:00] VITALS: BP 132/99
[2020-05-22 07:19] LABS: ALBUMIN/GLOBULIN RATIO 0.8 (1.0-2.7); BILIRUBIN,TOTAL 0.4 MG/DL (0.2-1.0); CALCIUM 8.8 MG/DL (8.5-10.1); CREATININE 1.2 MG/DL (0.55-1.30); POTASSIUM 3.5 MMOL/L (3.5-5.1)
[2020-05-22 07:30] LABS: HEMOGLOBIN 12.8 G/DL (12.0-16.0); MEAN CORPUSCULAR VOLUME 104 FL (80-99); PLATELET COUNT 95 K/UL (150-450); RED BLOOD COUNT 3.85 M/UL (4.20-5.40); RED CELL DISTRIBUTION WIDTH 13.1 % (11.6-14.8)
[2020-05-22 08:00] VITALS: BP 91/51
[2020-05-22] MEDS ORDERED: D5 1/2NS 1,000 ML IV SCH (08:45)
[2020-05-22] MEDS: Heparin 5000 units/ml inj SUBQ SCH (09:00)
[2020-05-22] MEDS ORDERED: Ascorbic Acid 500mg tab ORAL SCH (09:00)
[2020-05-22] MEDS: Depakote 125mg Sprinkles ORAL SCH (09:13)
[2020-05-22] MEDS ORDERED: ASCORBIC ACID500 M4 ORAL (10:07)
[2020-05-22] MEDS ORDERED: MULTIVITAMINS1 EAC2 ORAL (10:07)
[2020-05-22] MEDS ORDERED: NORVASC2.5 MG ORAL (10:07)
[2020-05-22] MEDS ORDERED: LEVOFLOXACIN250 MG ORAL (10:15)
--- NOTE | 2020-05-22 10:16 | Pulmonology Progress Note ---
Subjective ROS Limited/Unobtainable: No Constitutional: Denies: fever Gastrointestinal/Abdominal: Denies: nausea, vomiting, diarrhea Psychiatric: Denies: depression Skin: Denies: rash Musculoskeletal: Denies: pain Allergies: Coded Allergies: No Known Allergies (Unverified , 05/05/20) Subjective no fevers, WBC down to 11 creat down to 1.2 PLT trending up still with leuk , no fevers UCX + Enterobacter 10-20 K PLT down to 80 pulse ox stable on RA remains afebrile, no signs of resp distress repeated COVID 19 x2 NGT Objective Last 24 Hour Vital Signs Date Time Temp Pulse Resp B/P (MAP) Pulse Ox O2 Delivery O2 Flow Rate FiO2 05/22/20 04:00 98.9 83 19 132/99 (110) 96 05/22/20 00:00 98.2 75 20 106/70 (82) 96 05/21/20 21:00 Room Air 05/21/20 20:00 98.7 81 18 106/71 (83) 96 05/21/20 17:39 71 110/67 05/21/20 16:00 98.1 71 18 110/67 (81) 93 05/21/20 12:00 97.4 76 19 107/60 (76) 93 Intake and Output 05/21/20 05/22/20 19:00 07:00 Intake Total 200 ml Output Total 800 ml 500 ml Balance -600 ml -500 ml Other 200 ml Output Urine Total 800 ml 500 ml Objective General Appearance: no apparent distress, awake, demented, calm Lines, tubes and drains: peripheral HEENT: normocephalic, atraumatic, anicteric, mucous membranes moist Neck: non-tender, supple Respiratory/Chest: chest wall non-tender, lungs clear, no respiratory distress, no accessory muscle use Cardiovascular/Chest: normal rate, occas low tachy 105 -108 Abdomen: normal bowel sounds, non tender, soft Genitourinary/Rectal: no CVAT Extremities: no calf tenderness, normal capillary refill, no edema Neurologic: alert , confused , no gross focal Musculoskeletal: atrophy Microbiology Date/Time Source Procedure Growth Status 05/19/20 11:45 Straight Cath Urine Culture - Final Enterobacter Cloacae Complex Complete Laboratory Tests 05/22/20 06:18: White Blood Count 11.0H, Red Blood Count 3.85L, Hemoglobin 12.8, Hematocrit 40.0, Mean Corpuscular Volume 104H, Mean Corpuscular Hemoglobin 33.2H, Mean Corpuscular Hemoglobin Concent 31.9L, Red Cell Distribution Width 13.1, Platelet Count 95L, Mean Platelet Volume 11.8H, Neutrophils (%) (Auto) , Lymphocytes (%) (Auto) , Monocytes (%) (Auto) , Eosinophils (%) (Auto) , Basophils (%) (Auto) , Neutrophils % (Manual) [Pending], Lymphocytes % (Manual) [Pending], Platelet Estimate [Pending], Platelet Morphology [Pending], Sodium Level 144, Potassium Level 3.5, Chloride Level 110H, Carbon Dioxide Level 23, Anion Gap 11, Blood Urea Nitrogen 45H, Creatinine 1.2, Estimat Glomerular Filtration Rate 42.8, Glucose Level 109H, Uric Acid 8.8H, Calcium Level 8.8, Phosphorus Level 3.0, Magnesium Level 2.4, Total Bilirubin 0.4, Aspartate Amino Transf (AST/SGOT) 30, Alanine Aminotransferase (ALT/SGPT) 32, Alkaline Phosphatase 38L, C-Reactive Protein, Quantitative 10.9H, Pro-B-Type Natriuretic Peptide 138H, Total Protein 6.8, Albumin 3.0L, Globulin 3.8, Albumin/Globulin Ratio 0.8L Current Medications Medications (Trade) Dose Ordered Sig/Trina Route PRN Reason Start Time Stop Time Status Last Admin Dose Admin Acetaminophen (Tylenol) 650 mg Q4H PRN ORAL Temp >100.5 05/06/20 00:15 06/05/20 00:14 Albuterol Sulfate (Proventil MDI) 2 puff Q4H PRN INH Shortness of Breath 05/06/20 12:00 08/04/20 11:59 Amlodipine Besylate (Norvasc) 2.5 mg BID ORAL 05/21/20 12:45 06/20/20 12:44 Ascorbic Acid (Vitamin C) 250 mg DAILY ORAL 05/22/20 09:00 06/21/20 08:59 05/22/20 09:14 Ceftriaxone Sodium 1 gm/ Dextrose 55 ml @ 110 mls/hr Q24H IVPB 05/19/20 13:00 05/26/20 12:59 05/21/20 15:03 Dextrose/Sodium Chloride 1,000 ml @ 50 mls/hr Q20H IV 05/22/20 08:45 06/21/20 08:44 05/22/20 09:12 Diphenhydramine HCl (Benadryl) 25 mg Q6H PRN ORAL Itching 05/06/20 00:15 06/05/20 00:14 Divalproex Sodium (Depakote Sprinkles) 125 mg DAILY ORAL 05/06/20 09:00 06/05/20 08:59 05/22/20 09:13 Heparin Sodium (Porcine) (Heparin 5000 units/ml) 5,000 units EVERY 12 HOURS SUBQ 05/06/20 09:00 06/20/20 08:59 05/18/20 20:13 Hydralazine HCl (Apresoline) 25 mg Q4HR PRN ORAL BP over 160 systolic 05/20/20 12:30 08/18/20 12:29 Multivitamins (Multivitamins) 1 tab DAILY ORAL 05/22/20 09:00 06/21/20 08:59 05/22/20 09:14 Ondansetron HCl (Zofran) 4 mg Q6H PRN IVP Nausea & Vomiting 05/06/20 00:15 06/05/20 00:14 Assessment/Plan Assessment/Plan ASSESSMENT COVID 19 infection Complicated UTI with diarrhea and generalized weakness GP Bacteremia - ? -likely contaminant KAMI -resolved Dehydration Hyper Na due to dehydration -resolved Hypertension Hyperlipidemia Dementia Protein calorie malnutrition Thrombocytopenia - PLAN OF CARE [facility] floor IVF with D51/4 NS Na corrected UA+pyuria; started empiric Rocephin UCX 10-20 K Enterobacter,dc Rocephin, start Levaquin 250 x 3 days nephro eval appreciated IV hydration continue creat down to 1.2 decrease IVF to 50 and dc when discharged renal US noted -> no hydro, no stones monitor PLT counts( Heparin on hold), now up to 95 ID doubted 2 to ceftriaxone dc was hold due to ARF, leukocytosis and not eating, family up to date declined G tube, resp status stable , pulse oximetry remains stable on RA; CXR no acute CP pathology hold off on steroids and abx for PNA, Remdesivivr not indicated in this case ID follows CRP NGT, D dimer 2.3, LDH -219 and ferritin 235; both stable IL6 still pending -probably never sent follow up CXR 05/10 - no acute CP pathology Albuterol via MDI prn DVT prophylaxis Venous Duplex BLE 05/15 NGT UA c/w with probable UTI UCX + E coli , completed Ceftin BCX with Staph hominis likely contaminant, off Zyvox repeated rapid COVID 19 05/08 and 05/09 both NGT gentle IV hydration -dc monitor volumes, renal parameters, lytes BP management with ANJALI BSSE aspiration precautions push oral fluids protean supplements as per RD recs monitor counts, hold Heparin if PLT < 90 DNR/DNI status stable for dc today case discussed and evaluated by supervising physician Liseth Miranda NP May 22, 2020 10:16
--- NOTE | 2020-05-22 11:33 | Surgery Progress Note ---
Surgery Progress Note Subjective Additional Comments no acute events labs noted exam stable no n/v Objective Last 24 Hour Vital Signs Date Time Temp Pulse Resp B/P (MAP) Pulse Ox O2 Delivery O2 Flow Rate FiO2 05/22/20 09:00 Room Air 05/22/20 09:00 77 91/51 05/22/20 08:00 97.1 77 19 91/51 (64) 96 05/22/20 04:00 98.9 83 19 132/99 (110) 96 05/22/20 00:00 98.2 75 20 106/70 (82) 96 05/21/20 21:00 Room Air 05/21/20 20:00 98.7 81 18 106/71 (83) 96 05/21/20 17:39 71 110/67 05/21/20 16:00 98.1 71 18 110/67 (81) 93 05/21/20 12:00 97.4 76 19 107/60 (76) 93 I&O Intake and Output 05/21/20 05/22/20 19:00 07:00 Intake Total 200 ml Output Total 800 ml 500 ml Balance -600 ml -500 ml Other 200 ml Output Urine Total 800 ml 500 ml Dressing: saturated Cardiovascular: RSR Respiratory: decreased breath sounds Abdomen: non-tender, present bowel sounds Extremities: no tenderness, no cyanosis Laboratory Tests Test 05/22/20 06:18 White Blood Count 11.0 K/UL (4.8-10.8) H Red Blood Count 3.85 M/UL (4.20-5.40) L Hemoglobin 12.8 G/DL (12.0-16.0) Hematocrit 40.0 % (37.0-47.0) Mean Corpuscular Volume 104 FL (80-99) H Mean Corpuscular Hemoglobin 33.2 PG (27.0-31.0) H Mean Corpuscular Hemoglobin Concent 31.9 G/DL (32.0-36.0) L Red Cell Distribution Width 13.1 % (11.6-14.8) Platelet Count 95 K/UL (150-450) L Mean Platelet Volume 11.8 FL (6.5-10.1) H Neutrophils (%) (Auto) % (45.0-75.0) Lymphocytes (%) (Auto) % (20.0-45.0) Monocytes (%) (Auto) % (1.0-10.0) Eosinophils (%) (Auto) % (0.0-3.0) Basophils (%) (Auto) % (0.0-2.0) Differential Total Cells Counted 100 Neutrophils % (Manual) 74 % (45-75) Lymphocytes % (Manual) 18 % (20-45) L Monocytes % (Manual) 5 % (1-10) Eosinophils % (Manual) 3 % (0-3) Basophils % (Manual) 0 % (0-2) Band Neutrophils 0 % (0-8) Platelet Estimate Decreased L Platelet Morphology Normal Sodium Level 144 MMOL/L (136-145) Potassium Level 3.5 MMOL/L (3.5-5.1) Chloride Level 110 MMOL/L (98-107) H Carbon Dioxide Level 23 MMOL/L (21-32) Anion Gap 11 mmol/L (5-15) Blood Urea Nitrogen 45 mg/dL (7-18) H Creatinine 1.2 MG/DL (0.55-1.30) Estimat Glomerular Filtration Rate 42.8 mL/min (>60) Glucose Level 109 MG/DL (74-106) H Uric Acid 8.8 MG/DL (2.6-7.2) H Calcium Level 8.8 MG/DL (8.5-10.1) Phosphorus Level 3.0 MG/DL (2.5-4.9) Magnesium Level 2.4 MG/DL (1.8-2.4) Total Bilirubin 0.4 MG/DL (0.2-1.0) Aspartate Amino Transf (AST/SGOT) 30 U/L (15-37) Alanine Aminotransferase (ALT/SGPT) 32 U/L (12-78) Alkaline Phosphatase 38 U/L (46-116) L C-Reactive Protein, Quantitative 10.9 mg/dL (0.00-0.90) H Pro-B-Type Natriuretic Peptide 138 pg/mL (0-125) H Total Protein 6.8 G/DL (6.4-8.2) Albumin 3.0 G/DL (3.4-5.0) L Globulin 3.8 g/dL Albumin/Globulin Ratio 0.8 (1.0-2.7) L Plan Problems: (1) Incontinence associated dermatitis Assessment & Plan: Patient identified admission to have incontinence associated and tightness around the sacral region. There is skin breakdown in the sacral cleft as well as the bilateral buttock and the sacral periwound with mild maceration of the epidermis but no open lesions. Patient is recently having diarrhea and at high risk for further breakdown. BMI of 29 albumin of 3.8 as the patient does have fairly good nutritional status at this time. To ensure that patient does not have further breakdown or opening of the skin will monitor for incontinence/diarrhea and treat accordingly. In the meantime continue with nutritional optimization as well as turning patient every 2 hours offloading pressure with pillows. Wash wounds daily with normal saline apply OPTi foam dressing to the sacral area okay to change every 3 days with skin protectant unless there is incontinence at which time change accordingly. Thank you will follow with recommendations DAILY ESTIMATED NEEDS: Needs based on cardiac/ 62.5kg abw 25-30 kcals/kg 6085-3925 total kcals 1-1.3 g protein/kg 62-81 g total protein 25-30 mL/kg 7252-4487 total fluid mLs NUTRITION DIAGNOSIS: Inadequate oral intake R/T decreased appetite, decreased cognitive fxn, clinical condition as evidenced by refusing most meals, h/o dementia, recent COVID-19+. (CURRENT DIET:REGULAR/ SOFT) PO DIET RECOMMENDATIONS--->>> Maintain liberalized regular/ texture as tolerated ENTERAL NUTRITION RECOMMENDATIONS: * consider non oral feeds if part of POC * ADDITIONAL RECOMMENDATIONS: * Calibrated bedscale wt: daily wts w/ variance 70's -> 97kg this AM * Consider appetite stimulant due to consistently poor PO * Monitor hydration status: poor PO, no IV access * Monitor lytes, replete as needed * Wound healing: MVI x 1, Vit C 250mg QD Abisai BID as tolerated * Ensure Enlive TID w/ meals for now, monitor acceptance (2) COVID-19 Assessment & Plan: COVID + ID input noted appreciated The cardiac and mediastinal silhouettes are unremarkable. Minor scattered areas of atelectasis in both lung bases. Negative for pneumothorax or pleural fluid collections. (3) Acute renal failure (4) Dehydration Assessment & Plan: DAILY ESTIMATED NEEDS: Needs based on cardiac/ 62.5kg abw 25-30 kcals/kg 1437-0326 total kcals 1-1.3 g protein/kg 62-81 g total protein 25-30 mL/kg 3357-8799 total fluid mLs NUTRITION DIAGNOSIS: Inadequate oral intake R/T decreased appetite, decreased cognitive fxn, clinical condition as evidenced by refusing most meals, h/o dementia, recent COVID-19+. CURRENT DIET:REGULAR/ SOFT PO DIET RECOMMENDATIONS: Maintain liberalized regular/ texture as tolerated ENTERAL NUTRITION RECOMMENDATIONS: * consider non oral feeds if part of POC * to provide ADDITIONAL RECOMMENDATIONS: * Calibrated bedscale wt: daily wts w/ variance 70 * Consider appetite stimulant due to consistently poor PO * Monitor hydration status: poor PO, no IV access-> now on IVF * Monitor lytes, replete as needed (low K) * Wound healing: MVI x 1, Vit C 250mg QD Abisai BID as tolerated * Ensure Enlive TID w/ meals for now, monitor acceptance (5) Hypotension Jeramy Rhodes May 22, 2020 11:33
[2020-05-22 12:00] VITALS: BP 113/76
--- NOTE | 2020-05-22 13:19 | Nephrology Progress Note ---
Assessment/Plan Problem List: (1) Acute renal failure (2) COVID-19 (3) Dehydration (4) Hypotension Assessment Acute renal failure, Dehydration DNR/DNI Hypotension COVID-19 infection UTI History of hypertension Dementia Plan May 22: Labs reviewed. Renal parameters are improved. Abnormal electrolytes addressed. Blood pressure medication adjusted. Continue per consultants. May 21: Renal parameters are improved with hydration. Abnormal electrolytes addressed. Continue per current management. Continue to monitor renal parameters. Blood pressure improved. Will resume some of the blood pressure medications. May 20: Christianson catheter IV fluid Hold Norvasc and lisinopril Urine studies Monitor renal parameters Subjective ROS Limited/Unobtainable: No Constitutional: Reports: malaise, weakness Objective Objective Last 24 Hour Vital Signs Date Time Temp Pulse Resp B/P (MAP) Pulse Ox O2 Delivery O2 Flow Rate FiO2 05/22/20 09:00 Room Air 05/22/20 09:00 77 91/51 05/22/20 08:00 97.1 77 19 91/51 (64) 96 05/22/20 04:00 98.9 83 19 132/99 (110) 96 05/22/20 00:00 98.2 75 20 106/70 (82) 96 05/21/20 21:00 Room Air 05/21/20 20:00 98.7 81 18 106/71 (83) 96 05/21/20 17:39 71 110/67 05/21/20 16:00 98.1 71 18 110/67 (81) 93 Intake and Output 05/21/20 05/22/20 19:00 07:00 Intake Total 200 ml Output Total 800 ml 500 ml Balance -600 ml -500 ml Other 200 ml Output Urine Total 800 ml 500 ml Current Medications Medications (Trade) Dose Ordered Sig/Trina Route PRN Reason Start Time Stop Time Status Last Admin Dose Admin Acetaminophen (Tylenol) 650 mg Q4H PRN ORAL Temp >100.5 05/06/20 00:15 06/05/20 00:14 Albuterol Sulfate (Proventil MDI) 2 puff Q4H PRN INH Shortness of Breath 05/06/20 12:00 08/04/20 11:59 Amlodipine Besylate (Norvasc) 2.5 mg BID ORAL 05/21/20 12:45 06/20/20 12:44 Ascorbic Acid (Vitamin C) 250 mg DAILY ORAL 05/22/20 09:00 06/21/20 08:59 05/22/20 09:14 Dextrose/Sodium Chloride 1,000 ml @ 50 mls/hr Q20H IV 05/22/20 08:45 06/21/20 08:44 05/22/20 09:12 Diphenhydramine HCl (Benadryl) 25 mg Q6H PRN ORAL Itching 05/06/20 00:15 06/05/20 00:14 Divalproex Sodium (Depakote Sprinkles) 125 mg DAILY ORAL 05/06/20 09:00 06/05/20 08:59 05/22/20 09:13 Heparin Sodium (Porcine) (Heparin 5000 units/ml) 5,000 units EVERY 12 HOURS SUBQ 05/06/20 09:00 06/20/20 08:59 05/18/20 20:13 Hydralazine HCl (Apresoline) 25 mg Q4HR PRN ORAL BP over 160 systolic 05/20/20 12:30 08/18/20 12:29 Levofloxacin (Levaquin) 250 mg DAILY ORAL 05/23/20 09:00 05/25/20 09:01 Multivitamins (Multivitamins) 1 tab DAILY ORAL 05/22/20 09:00 06/21/20 08:59 05/22/20 09:14 Ondansetron HCl (Zofran) 4 mg Q6H PRN IVP Nausea & Vomiting 05/06/20 00:15 06/05/20 00:14 Laboratory Tests 05/22/20 06:18: White Blood Count 11.0H, Red Blood Count 3.85L, Hemoglobin 12.8, Hematocrit 40.0, Mean Corpuscular Volume 104H, Mean Corpuscular Hemoglobin 33.2H, Mean Corpuscular Hemoglobin Concent 31.9L, Red Cell Distribution Width 13.1, Platelet Count 95L, Mean Platelet Volume 11.8H, Neutrophils (%) (Auto) , Lymphocytes (%) (Auto) , Monocytes (%) (Auto) , Eosinophils (%) (Auto) , Basophils (%) (Auto) , Differential Total Cells Counted 100, Neutrophils % (Manual) 74, Lymphocytes % (Manual) 18L, Monocytes % (Manual) 5, Eosinophils % (Manual) 3, Basophils % (Manual) 0, Band Neutrophils 0, Platelet Estimate DecreasedL, Platelet Morphology Normal, Sodium Level 144, Potassium Level 3.5, Chloride Level 110H, Carbon Dioxide Level 23, Anion Gap 11, Blood Urea Nitrogen 45H, Creatinine 1.2, Estimat Glomerular Filtration Rate 42.8, Glucose Level 109H, Uric Acid 8.8H, Calcium Level 8.8, Phosphorus Level 3.0, Magnesium Level 2.4, Total Bilirubin 0.4, Aspartate Amino Transf (AST/SGOT) 30, Alanine Aminotransferase (ALT/SGPT) 32, Alkaline Phosphatase 38L, C-Reactive Protein, Quantitative 10.9H, Pro-B-Type Natriuretic Peptide 138H, Total Protein 6.8, Albumin 3.0L, Globulin 3.8, Albumin/Globulin Ratio 0.8L Height (Feet): 5 Height (Inches): 5.00 Weight (Pounds): 175 General Appearance: no apparent distress Cardiovascular: normal rate Respiratory/Chest: decreased breath sounds Abdomen: soft Bridger Michel MD May 22, 2020 13:18
[2020-05-22 16:00] VITALS: BP 109/54
--- NOTE | 2020-05-22 17:06 | Infectious Diseases Prog Note ---
Assessment/Plan Assessment/Plan ASSESSMENT AND PLAN: 1. enterobacter uti, ? sepsis, leukocytosis, thrombocytopenia (doubt secondary to antibiotics) hx e.coli uti, s/p treatment - levofloxacin x 7 days - monitor labs 2. COVID-19 infection. Continue isolation. There is no indication for remdesivir or dexamethasone at this time. Saturation is 96% on room air without any respiratory symptoms - f/u rapid test neg x 2, consider discontinue isolation 3. Patient has history of hypertension. 4. Dementia. 5. Blood pressure treatment per primary care team. 6. Dyslipidemia. 7. Thrombocytopenia. 8. Dehydration. 9. IV fluids. 10. Continue treatment per primary consultants. 11. No known drug allergies. 12. Social history is negative. 13. Family history is noncontributory. 14. MAR is noted. 15. Case was discussed with RN. Subjective Constitutional: Denies: fever HEENT: Denies: congestion Respiratory: Denies: shortness of breath Cardiovascular: Denies: chest pain Gastrointestinal/Abdominal: Denies: nausea, vomiting, diarrhea Genitourinary: Reports: other - no paredes Neurologic: Denies: headache Psychiatric: Denies: depression Skin: Denies: rash Hematologic: Denies: bleeding Musculoskeletal: Denies: pain Allergies: Coded Allergies: No Known Allergies (Unverified , 05/05/20) Objective Last 24 Hour Vital Signs Date Time Temp Pulse Resp B/P (MAP) Pulse Ox O2 Delivery O2 Flow Rate FiO2 05/22/20 12:00 97.4 70 18 113/76 (88) 96 05/22/20 09:00 Room Air 05/22/20 09:00 77 91/51 05/22/20 08:00 97.1 77 19 91/51 (64) 96 05/22/20 04:00 98.9 83 19 132/99 (110) 96 05/22/20 00:00 98.2 75 20 106/70 (82) 96 05/21/20 21:00 Room Air 05/21/20 20:00 98.7 81 18 106/71 (83) 96 05/21/20 17:39 71 110/67 Height (Feet): 5 Height (Inches): 5.00 Weight (Pounds): 175 General Appearance: no acute distress HEENT: normocephalic, atraumatic, anicteric, mucous membranes moist Respiratory/Chest: lungs clear, normal breath sounds, no respiratory distress, no accessory muscle use Cardiovascular: normal rate, regular rhythm, no gallop/murmur, no JVD Abdomen: normal bowel sounds, soft, non tender, no organomegaly, non distended Genitourinary: other - no paredes Extremities: no cyanosis Skin: no rash 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 COMPARISON: No relevant prior studies available. FINDINGS: The cardiac and mediastinal silhouettes are unremarkable. Minor scattered areas of atelectasis in both lung bases. Negative for pneumothorax or pleural fluid collections. Chest x-ray - 05/10/20 - Procedure: XRAY Chest 1v Indication: Shortness of breath Technique: One view of the chest Comparison: 05/05/2020 Findings: Lungs and pleural spaces are clear. Heart size is normal. No significant change Impression: No acute process Chest x-ray - 05/21/20 - Procedure: XRAY Chest 1v Indication: Shortness of breath Technique: One view of the chest Comparison: 05/10/2020 Findings: Lungs and pleural spaces are clear. Heart size is normal. No significant change Impression: No acute process Microbiology Date/Time Source Procedure Growth Status 05/19/20 11:45 Straight Cath Urine Culture - Final Enterobacter Cloacae Complex Complete 05/09/20 16:58 Nasopharynx SARS-CoV-2 RdRp Gene Assay - Final Complete 05/05/20 21:30 Blood Blood Culture - Final NO GROWTH AFTER 5 DAYS Complete 05/05/20 20:30 Rectum - Final NO CARBAPENEM-RESISTANT ENTEROBACTERI... Complete Labs Test 05/20/20 06:45 05/20/20 10:22 05/21/20 08:15 05/22/20 06:18 White Blood Count 12.9 K/UL (4.8-10.8) 11.2 K/UL (4.8-10.8) 11.0 K/UL (4.8-10.8) Red Blood Count 4.22 M/UL (4.20-5.40) 3.82 M/UL (4.20-5.40) 3.85 M/UL (4.20-5.40) Hemoglobin 13.9 G/DL (12.0-16.0) 12.7 G/DL (12.0-16.0) 12.8 G/DL (12.0-16.0) Hematocrit 44.1 % (37.0-47.0) 40.0 % (37.0-47.0) 40.0 % (37.0-47.0) Mean Corpuscular Volume 105 FL (80-99) 105 FL (80-99) 104 FL (80-99) Mean Corpuscular Hemoglobin 33.0 PG (27.0-31.0) 33.1 PG (27.0-31.0) 33.2 PG (27.0-31.0) Mean Corpuscular Hemoglobin Concent 31.6 G/DL (32.0-36.0) 31.7 G/DL (32.0-36.0) 31.9 G/DL (32.0-36.0) Red Cell Distribution Width 13.6 % (11.6-14.8) 13.3 % (11.6-14.8) 13.1 % (11.6-14.8) Platelet Count 84 K/UL (150-450) 80 K/UL (150-450) 95 K/UL (150-450) Mean Platelet Volume 9.5 FL (6.5-10.1) 9.8 FL (6.5-10.1) 11.8 FL (6.5-10.1) Neutrophils (%) (Auto) % (45.0-75.0) % (45.0-75.0) % (45.0-75.0) Lymphocytes (%) (Auto) % (20.0-45.0) % (20.0-45.0) % (20.0-45.0) Monocytes (%) (Auto) % (1.0-10.0) % (1.0-10.0) % (1.0-10.0) Eosinophils (%) (Auto) % (0.0-3.0) % (0.0-3.0) % (0.0-3.0) Basophils (%) (Auto) % (0.0-2.0) % (0.0-2.0) % (0.0-2.0) Differential Total Cells Counted 100 100 100 Neutrophils % (Manual) 74 % (45-75) 72 % (45-75) 74 % (45-75) Lymphocytes % (Manual) 18 % (20-45) 20 % (20-45) 18 % (20-45) Monocytes % (Manual) 6 % (1-10) 8 % (1-10) 5 % (1-10) Eosinophils % (Manual) 0 % (0-3) 0 % (0-3) 3 % (0-3) Basophils % (Manual) 0 % (0-2) 0 % (0-2) 0 % (0-2) Band Neutrophils 2 % (0-8) 0 % (0-8) 0 % (0-8) Platelet Estimate Decreased Decreased Decreased Platelet Morphology Normal Normal Normal Macrocytosis 1+ 1+ Sodium Level 145 MMOL/L (136-145) 143 MMOL/L (136-145) 144 MMOL/L (136-145) Potassium Level 3.8 MMOL/L (3.5-5.1) 3.3 MMOL/L (3.5-5.1) 3.5 MMOL/L (3.5-5.1) Chloride Level 108 MMOL/L (98-107) 108 MMOL/L (98-107) 110 MMOL/L (98-107) Carbon Dioxide Level 25 MMOL/L (21-32) 27 MMOL/L (21-32) 23 MMOL/L (21-32) Anion Gap 12 mmol/L (5-15) 8 mmol/L (5-15) 11 mmol/L (5-15) Blood Urea Nitrogen 92 mg/dL (7-18) 67 mg/dL (7-18) 45 mg/dL (7-18) Creatinine 3.5 MG/DL (0.55-1.30) 1.9 MG/DL (0.55-1.30) 1.2 MG/DL (0.55-1.30) Estimat Glomerular Filtration Rate 12.5 mL/min (>60) 25.2 mL/min (>60) 42.8 mL/min (>60) Glucose Level 156 MG/DL (74-106) 132 MG/DL (74-106) 109 MG/DL (74-106) Uric Acid 13.8 MG/DL (2.6-7.2) 10.8 MG/DL (2.6-7.2) 8.8 MG/DL (2.6-7.2) Calcium Level 8.6 MG/DL (8.5-10.1) 8.9 MG/DL (8.5-10.1) 8.8 MG/DL (8.5-10.1) Phosphorus Level 4.1 MG/DL (2.5-4.9) 3.0 MG/DL (2.5-4.9) 3.0 MG/DL (2.5-4.9) Magnesium Level 2.6 MG/DL (1.8-2.4) 2.5 MG/DL (1.8-2.4) 2.4 MG/DL (1.8-2.4) Total Bilirubin 0.5 MG/DL (0.2-1.0) 0.4 MG/DL (0.2-1.0) 0.4 MG/DL (0.2-1.0) Direct Bilirubin 0.1 MG/DL (0.0-0.3) Gamma Glutamyl Transpeptidase 16 U/L (5-85) 10 U/L (5-85) Aspartate Amino Transf (AST/SGOT) 47 U/L (15-37) 32 U/L (15-37) 30 U/L (15-37) Alanine Aminotransferase (ALT/SGPT) 52 U/L (12-78) 37 U/L (12-78) 32 U/L (12-78) Alkaline Phosphatase 40 U/L (46-116) 37 U/L (46-116) 38 U/L (46-116) Total Creatine Kinase 285 U/L (26-308) 358 U/L (26-308) Total Protein 6.9 G/DL (6.4-8.2) 6.9 G/DL (6.4-8.2) 6.8 G/DL (6.4-8.2) Albumin 3.0 G/DL (3.4-5.0) 3.3 G/DL (3.4-5.0) 3.0 G/DL (3.4-5.0) Urine Random Sodium 30 mmol/L (20-110) Iron Level 29 ug/dL (50-175) Total Iron Binding Capacity 158 ug/dL (250-450) Percent Iron Saturation 18 % (15-50) Unsaturated Iron Binding 129 ug/dL (112-346) Ferritin 319 NG/ML (8-388) Lactate Dehydrogenase 215 U/L (81-234) C-Reactive Protein, Quantitative 4.1 mg/dL (0.00-0.90) 10.9 mg/dL (0.00-0.90) Pro-B-Type Natriuretic Peptide 120 pg/mL (0-125) 138 pg/mL (0-125) Globulin 3.6 g/dL 3.8 g/dL Albumin/Globulin Ratio 0.9 (1.0-2.7) 0.8 (1.0-2.7) Triglycerides Level 269 MG/DL (30-150) Cholesterol Level 204 MG/DL (< 200) LDL Cholesterol 127 mg/dL (<100) HDL Cholesterol 14 MG/DL (40-60) Cholesterol/HDL Ratio 14.6 (3.3-4.4) Vitamin B12 Level 569 PG/ML (193-986) Folate 8.9 NG/ML (8.6-58.9) Thyroid Stimulating Hormone (TSH) 0.825 uiU/mL (0.358-3.740) Laboratory Tests Test 05/22/20 06:18 White Blood Count 11.0 K/UL (4.8-10.8) H Red Blood Count 3.85 M/UL (4.20-5.40) L Hemoglobin 12.8 G/DL (12.0-16.0) Hematocrit 40.0 % (37.0-47.0) Mean Corpuscular Volume 104 FL (80-99) H Mean Corpuscular Hemoglobin 33.2 PG (27.0-31.0) H Mean Corpuscular Hemoglobin Concent 31.9 G/DL (32.0-36.0) L Red Cell Distribution Width 13.1 % (11.6-14.8) Platelet Count 95 K/UL (150-450) L Mean Platelet Volume 11.8 FL (6.5-10.1) H Neutrophils (%) (Auto) % (45.0-75.0) Lymphocytes (%) (Auto) % (20.0-45.0) Monocytes (%) (Auto) % (1.0-10.0) Eosinophils (%) (Auto) % (0.0-3.0) Basophils (%) (Auto) % (0.0-2.0) Differential Total Cells Counted 100 Neutrophils % (Manual) 74 % (45-75) Lymphocytes % (Manual) 18 % (20-45) L Monocytes % (Manual) 5 % (1-10) Eosinophils % (Manual) 3 % (0-3) Basophils % (Manual) 0 % (0-2) Band Neutrophils 0 % (0-8) Platelet Estimate Decreased L Platelet Morphology Normal Sodium Level 144 MMOL/L (136-145) Potassium Level 3.5 MMOL/L (3.5-5.1) Chloride Level 110 MMOL/L (98-107) H Carbon Dioxide Level 23 MMOL/L (21-32) Anion Gap 11 mmol/L (5-15) Blood Urea Nitrogen 45 mg/dL (7-18) H Creatinine 1.2 MG/DL (0.55-1.30) Estimat Glomerular Filtration Rate 42.8 mL/min (>60) Glucose Level 109 MG/DL (74-106) H Uric Acid 8.8 MG/DL (2.6-7.2) H Calcium Level 8.8 MG/DL (8.5-10.1) Phosphorus Level 3.0 MG/DL (2.5-4.9) Magnesium Level 2.4 MG/DL (1.8-2.4) Total Bilirubin 0.4 MG/DL (0.2-1.0) Aspartate Amino Transf (AST/SGOT) 30 U/L (15-37) Alanine Aminotransferase (ALT/SGPT) 32 U/L (12-78) Alkaline Phosphatase 38 U/L (46-116) L C-Reactive Protein, Quantitative 10.9 mg/dL (0.00-0.90) H Pro-B-Type Natriuretic Peptide 138 pg/mL (0-125) H Total Protein 6.8 G/DL (6.4-8.2) Albumin 3.0 G/DL (3.4-5.0) L Globulin 3.8 g/dL Albumin/Globulin Ratio 0.8 (1.0-2.7) L Current Medications Medications (Trade) Dose Ordered Sig/Trina Route PRN Reason Start Time Stop Time Status Last Admin Dose Admin Acetaminophen (Tylenol) 650 mg Q4H PRN ORAL Temp >100.5 05/06/20 00:15 06/05/20 00:14 Albuterol Sulfate (Proventil MDI) 2 puff Q4H PRN INH Shortness of Breath 05/06/20 12:00 08/04/20 11:59 Amlodipine Besylate (Norvasc) 2.5 mg DAILY ORAL 05/23/20 09:00 06/20/20 12:44 Ascorbic Acid (Vitamin C) 250 mg DAILY ORAL 05/22/20 09:00 06/21/20 08:59 05/22/20 09:14 Dextrose/Sodium Chloride 1,000 ml @ 50 mls/hr Q20H IV 05/22/20 08:45 06/21/20 08:44 05/22/20 09:12 Diphenhydramine HCl (Benadryl) 25 mg Q6H PRN ORAL Itching 05/06/20 00:15 06/05/20 00:14 Divalproex Sodium (Depakote Sprinkles) 125 mg DAILY ORAL 05/06/20 09:00 06/05/20 08:59 05/22/20 09:13 Heparin Sodium (Porcine) (Heparin 5000 units/ml) 5,000 units EVERY 12 HOURS SUBQ 05/06/20 09:00 06/20/20 08:59 05/18/20 20:13 Hydralazine HCl (Apresoline) 25 mg Q4HR PRN ORAL BP over 160 systolic 05/20/20 12:30 08/18/20 12:29 Levofloxacin (Levaquin) 250 mg DAILY ORAL 05/23/20 09:00 05/25/20 09:01 Multivitamins (Multivitamins) 1 tab DAILY ORAL 05/22/20 09:00 06/21/20 08:59 05/22/20 09:14 Ondansetron HCl (Zofran) 4 mg Q6H PRN IVP Nausea & Vomiting 05/06/20 00:15 06/05/20 00:14 Wale Schofield MD May 22, 2020 17:06
[2020-05-22] MEDS ORDERED: NS 500ML ONE (19:49)
[2020-05-22] MEDS ORDERED: Tubing IV Secondary IV ONE (19:49)
--- NOTE | 2020-05-25 11:50 | Discharge Summary ---
Discharge Summary Discharge Summary _ DATE OF ADMISSION: 05/05/2020 DATE OF DISCHARGE:05/22/2020 DISCHARGED BY: Dr. Bragg REASON FOR ADMISSION: 84 years old female with past medical history of hypertension, hyperlipidemia, dementia, resident of assisted living, presented secondary to positive coronavirus testing. At the facility they were unable to take care of patient with Covid. Upon evaluation patient was not able to describe any complaints. She had one episode of diarrhea at the facility. Upon evaluation she was afebrile Pulse oximetry was stable on room air , and vital signs were stable. Rapid COVID-19 in the emergency room was positive. Chest x-ray revealed minor area of atelectasis in both lung bases , but no evidence of pneumonia, no pleural fluid collection. Laboratory work-up revealed no leukocytosis, stable hemoglobin ,hematocrit, platelet count 137 . Stable electrolytes. BUN 31, creatinine 1.2. D-dimer 2.3. Urinalysis revealed +2 protein, positive for nitrate, leukocyte esterase , pyuria and many bacteria. Patient subsequently admitted to medical surgical floor for further management. CONSULTANTS: ID specialist Dr. Schofield engineering lab technician Dr. Michel surgery Dr. Rhodes [facility] COURSE: Patient admitted to medical surgical floor to isolation room. Respiratory status was closely monitored. Pulse oximetry remained stable on room air. Chest x-ray revealed no acute cardiopulmonary pathology. Steroids and antibiotics were hold , given stable respiratory status. No remdesivir was indicated in this case. Albuterol via MDI provided as needed . DVT prophylaxis provided . Venous duplex bilateral lower extremity revealed no evidence of acute DVT. Patient was followed-up with inflammatory markers which were not impressive. Patient was follow-up with chest x-ray , which still revealed no evidence of pneumonia. Blood culture revealed Staph hominis 1 out of 2 , likely contaminant as per ID specialist recommendation. Urine culture revealed E. coli , status post treatment. Repeated rapid COVID-19 on 05/08 and 05/09 were negative. Assisted-living facility did not want to accept patient , and discharge planning was moved to [facility] and securing long-term facility. During the course of the stay , patient developed leukocytosis . CXR was clear. Urinalysis was consistent with UTI , urine culture revealed Enterobacter . patient was on antibiotic as per ID recommendation for complicated UTI , completed course while still in the hospital. Leukocytosis resolved, no fevers. Patient also developed acute kidney injury with creatinine trending up to highest of 3.5. Electronic Scale Subassembler closely followed. Patient was hydrated with IV fluids. Renal ultrasound revealed echogenic focus in the left pole lower pole measuring 8 mm and may correlate with nonobstructive calculus. No hydronephrosis, no nephrolithiasis. Volumes, cardiorenal parameters and electrolytes were closely monitored. Electrolytes corrected as needed. Nephrotoxic's were avoided. Acute kidney injury resolved and was most likely due to dehydration. Blood pressure was managed with ANJALI inhibitor. Bedside swallow evaluation was done . Aspiration precaution maintained. Oral fluids were pushed. Patient did not eat well. Family refused G-tube feeding. Protein supplements provided as per registered dietitian recommendation. Counts were closely monitored, prior to discharge platelet count 95. The lowest count was 80. Supportive care provided. Bowel regimen instituted. Patient had incontinence associated dermatitis , and wound care provided as per surgeon recommendation . Placement was found and secured at the long-term facility. Patient was stable for discharge. FINAL DIAGNOSES: COVID-19 infection Possible sepsis Complicated UTI with Enterobacter , s/p Rx E coli UTI, s/p Rx Acute kidney injury - resolved Dehydration Hypernatremia due to dehydration - resolved Hypertension Hyperlipidemia Dementia Protein calorie malnutrition Thrombocytopenia improved Incontinence associated dermatitis DISCHARGE MEDICATIONS: See Medication Reconciliation list. DISCHARGE INSTRUCTIONS: Patient was discharged to long-term facility. Follow-up with a primary care provider in the facility. Liseth Miranda NP May 25, 2020 11:50
== END 2020-05-22 19:50 | DRG 689 ==
LOC: EDBD 19:49 → EMR 19:55 → 4E 22:03 → EDBEDREQ 23:03
DX: N39.0 Urinary tract infection, site not specified (principal); U07.1 COVID-19; A41.9 Sepsis, unspecified organism; N17.9 Acute kidney failure, unspecified; E87.0 Hyperosmolality and hypernatremia; E46 Unspecified protein-calorie malnutrition; F03.90 Unspecified dementia, unspecified severity, without behavioral disturbance, psychotic disturbance, mood disturbance, and anxiety; D69.6 Thrombocytopenia, unspecified; I10 Essential (primary) hypertension; E86.0 Dehydration; B96.89 Other specified bacterial agents as the cause of diseases classified elsewhere; B96.20 Unspecified Escherichia coli [E. coli] as the cause of diseases classified elsewhere; E78.5 Hyperlipidemia, unspecified; L30.8 Other specified dermatitis; R32 Unspecified urinary incontinence; R19.7 Diarrhea, unspecified; Z66 Do not resuscitate; I95.9 Hypotension, unspecified
CPT/HCPCS: 36415; 71045; 76770; 80048; 80053; 80061; 80076; 81001; 81003; 82550; 82607; 82728; 82746; 82977; 83520; 83540; 83550; 83615; 83735; 83880; 84100; 84300; 84443; 84550; 85007; 85025; 85379; 85651; 86140; 87040; 87081; 87086; 87181; 93005; 93970; 96361; 96374; 99285; J2405; J7030; U0002